=== PATIENT | female | born 1960 | race Caucasian/White ===

== ENCOUNTER → 2016-06-08 | Outpatient (CLI) | payer OTHER ==
[~2016-06-08] MED LIST: ALPR.25T PO; ALPR1TAB7 PO; AMIT10TA6 PO; BACL10TA PO; BIOT10002 PO; BREX1TAB PO; CALC-6 PO; DICL75TA2 PO; FLUO20TA28 PO; FLUO40CA12 PO; HYDR-3812 PO; HYDR1TAB86 PO; LEVO25TA5 PO; LEVOTHYROXINE; MELA1TAB20 PO; MULT1TAB69 PO; OMEG1CAP24 PO; POTA2TAB15 PO; PRAV40TA2 PO; TRAZ-28 PO
--- OUTSIDE RECORDS SUMMARY | 2016-06-08 10:16 | XMS REPORT | Continuity of Care Document ---
Author Author [facility] Organization [facility] Address Unknown Phone Unavailable Allergies Active Description Code Type Severity Reaction Onset Reported/Identified Relationship to Patient Clinical Status Yes No Known Drug Allergies [id number] Drug Allergy Unknown N/ A 04/01/2011 Medications Problems Date Dx Coded Attending Type Code Diagnosis Diagnosed By MISHA PUTNAM MD Ot M48.06 05/02/2015 Ot V76.12 05/13/2015 Ot V76.12 05/15/2015 MISHA PUTNAM MD Ot M12.9 05/15/2015 MISHA PUTNAM MD Ot M51.26 05/15/2015 MISHA PUTNAM MD Ot M51.37 05/26/2015 MISHA PUTNAM MD Ot M12.9 05/26/2015 MISHA PUTNAM MD Ot M51.26 05/26/2015 MISHA PUTNAM MD Ot M51.37 05/27/2015 INDY LR, MISHA Fisher Ot M48.06 06/06/2015 INDY LR, MISHA Fisher Ot M48.06 07/02/2015 MISHA PUTNAM MD Ot M48.06 SPINAL STENOSIS, LUMBAR REGION 07/10/2015 MECCA LR, JOHNATHAN Fisher Ot M54.12 07/22/2015 MECCA LR, JOHNATHAN Fisher Ot M54.12 RADICULOPATHY, CERVICAL REGION 10/08/2015 MECCA LR, JOHNATHAN Fisher Ot M54.12 RADICULOPATHY, CERVICAL REGION 11/26/2015 INDY LR, MISHA Fisher Ot M12.9 ARTHROPATHY, UNSPECIFIED 11/26/2015 INDY LR, MISHA Fisher Ot M51.26 OTHER INTERVERTEBRAL DISC DISPLACEMENT, 11/26/2015 MISHA PUTNAM MD Ot M51.37 OTHER INTERVERTEBRAL DISC DEGENERATION, Procedures Results Encounters ACCT No. Visit Date/Time Discharge Status Pt. Type Provider Facility Loc./Unit Complaint [id number] 06/20/2015 10:25:00 2015 09:30:00 DIS Outpatient MISHA PUTNAM MD [facility] REHAB [id number] 07/09/2015 14:36:00 ACT Outpatient MECCA LR, JOHNATHAN Fisher [facility] RAD [id number] 05/13/2015 08:05:00 ACT Outpatient INDY LR, MISHA Fisher [facility] RAD LOW BACK PAIN RADIATED INTO LEGS EFFECTING BLADDER [id number] 10/02/2010 13:00:00 Document Registration
--- NOTE | 2016-06-08 20:36 | Diagnostic Imaging Report ---
Ultrasound of the neck left side. INDICATION: Left neck lump near the left ear getting larger. FINDINGS: There is a 2.2 x 1.0 x 1.6 cm hypoechoic mass with vascularity. It appears to be arising from the inferior aspect of the left parotid gland. Smaller nodules within the parotid gland up to 0.9 cm also seen with internal vascularity demonstrated. The lesions all have internal vascularity and are solid. IMPRESSION: Multiple circumscribed masses in the left parotid gland up to 2.2 cm in size. 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 Evaluation with ultrasound-guided fine needle aspiration is recommended. Dictated by: Dictated on workstation # [id number]
== END ==
LOC: RAD 10:13
PROVIDERS: ATTEND Family Medicine
DX: K11.8 Other diseases of salivary glands (principal)
CPT/HCPCS: 76536

== ENCOUNTER → 2016-06-15 | Outpatient (CLI) | payer OTHER ==
[~2016-06-15] VITALS: Ht 165.1 cm; Wt 52.2 kg
[~2016-06-15] MED LIST changes: +LIDOCAINE 1% INJ 20 ML (XYLOCAINE) VIAL INJ ONE
[2016-06-15 13:51] VITALS: BP 130/84
[2016-06-15 14:22] VITALS: BP 128/76
--- NOTE | 2016-06-15 16:21 | Diagnostic Imaging Report ---
EXAMINATION: US-guided fine needle biopsy-parotid. INDICATION: Left parotid mass. CONSENT: Informed consent was obtained from the patient. The risks, benefits, potential complications and alternatives were reviewed and all questions answered to the patient's satisfaction. FINDINGS: Hypoechoic left parotid solid mass. PROCEDURE: After sterile preparation and draping, 1% lidocaine was utilized for local anesthesia. A 25-gauge hypodermic needle is introduced into the left parotid mass under live ultrasound guidance. After confirming adequate positioning with saved ultrasound images, multiple passes of fine needle aspiration is performed and repeated 5 times. The patient tolerated the procedure well with no immediate complications. IMPRESSION: Successful US-guided fine needle aspiration biopsy of left parotid mass. Dictated by: Dictated on workstation # [id number]
== END ==
LOC: RAD 13:24
PROVIDERS: ATTEND Family Medicine
DX: R22.1 Localized swelling, mass and lump, neck (principal)
CPT/HCPCS: 76942; 88305

== ENCOUNTER 2016-06-22 12:17 | Outpatient (CLI) | payer OTHER ==
[~2016-06-22] VITALS: Ht 165.1 cm; Wt 58.6 kg
[~2016-06-22 12:17] MED LIST changes: -ALPR1TAB7 PO; -AMIT10TA6 PO; -BACL10TA PO; -BIOT10002 PO; -BREX1TAB PO; -CALC-6 PO; -DICL75TA2 PO; -FLUO20TA28 PO; -FLUO40CA12 PO; -HYDR-3812 PO; -LEVO25TA5 PO; -LIDOCAINE 1% INJ 20 ML (XYLOCAINE) VIAL INJ ONE; -MELA1TAB20 PO; -MULT1TAB69 PO; -OMEG1CAP24 PO; -POTA2TAB15 PO; -PRAV40TA2 PO; -TRAZ-28 PO
[2016-06-22 12:27] VITALS: BP 108/66
[2016-06-22 12:58] LABS: BASOPHILS % (AUTO) 0 % (0-10); EOSINOPHILS % (AUTO) 1 % (0-10); LYMPHOCYTES # (AUTO) 1.7 X 10^3 (1.0-4.0); LYMPHOCYTES % (AUTO) 24 % (12-44); MEAN CORPUSCULAR HEMOGLOBIN 31 PG (25-34); MEAN CORPUSCULAR HGB CONC 35 G/DL (32-36); MEAN CORPUSCULAR VOLUME 88 FL (80-99); MEAN PLATELET VOLUME 8.5 FL (7.4-10.4); MONOCYTES # (AUTO) 0.7 X 10^3 (0.0-1.0); MONOCYTES % (AUTO) 10 % (0-12); NEUTROPHILS # (AUTO) 4.6 X 10^3 (1.8-7.8); NEUTROPHILS % (AUTO) 65 % (42-75); PLATELET COUNT 218 10^3/uL (130-400); RED BLOOD COUNT 3.44 10^6/uL (4.35-5.85); RED CELL DISTRIBUTION WIDTH 13.1 % (10.0-14.5); WHITE BLOOD COUNT 7.2 10^3/uL (4.3-11.0)
[2016-06-22 13:20] LABS: ANION GAP 10 MMOL/L (5-14); BLOOD UREA NITROGEN 9 MG/DL (7-18); BUN/CREATININE RATIO 13; CARBON DIOXIDE 23 MMOL/L (21-32); CHLORIDE 98 MMOL/L (98-107); CREATININE SERUM 0.71 MG/DL (0.60-1.30); GFR ESTIMATED > 60; GLUCOSE 81 MG/DL (70-105); POTASSIUM 4.2 MMOL/L (3.6-5.0); SODIUM 131 MMOL/L (135-145)
[2016-06-22] MEDS ORDERED: FLUO20TA28 PO (13:21)
[2016-06-22] MEDS ORDERED: FLUO40CA12 PO (13:21)
[2016-06-22] MEDS ORDERED: POTA2TAB15 PO (13:21)
[2016-06-22] MEDS ORDERED: CALC-6 PO (13:21)
[2016-06-22] MEDS ORDERED: PRAV40TA2 PO (13:21)
[2016-06-22] MEDS ORDERED: ALPR1TAB7 PO (13:21)
[2016-06-22] MEDS ORDERED: DICL75TA2 PO (13:21)
[2016-06-22] MEDS ORDERED: MELA1TAB20 PO (13:21)
[2016-06-22] MEDS ORDERED: BACL10TA PO (13:21)
[2016-06-22] MEDS ORDERED: LEVO25TA5 PO (13:21)
[2016-06-22] MEDS ORDERED: TRAZ-28 PO (13:21)
[2016-06-22] MEDS ORDERED: OMEG1CAP24 PO (13:21)
[2016-06-22] MEDS ORDERED: BREX1TAB PO (13:21)
[2016-06-22] MEDS ORDERED: AMIT10TA6 PO (13:21)
[2016-06-22] MEDS ORDERED: BIOT10002 PO (13:21)
[2016-06-22] MEDS ORDERED: MULT1TAB69 PO (13:21)
--- NOTE | 2016-06-22 14:24 | Diagnostic Imaging Report ---
INDICATION: Preoperative evaluation. No chest complaints. Patient has left neck mass. Comparison study: Chest from March 2011. FINDINGS: Frontal and lateral views of the chest demonstrate the lungs to be clear. The heart, mediastinum, pulmonary vascularity and visualized bony thorax are normal. IMPRESSION: Negative chest. Dictated by: Dictated on workstation # [id number]
== END 2016-06-22 13:07 | disposition home or self-care (01) ==
LOC: PREOP 12:17
PROVIDERS: ATTEND Otolaryngology Otolaryngology/Facial Plastic Surgery
DX: Z01.818 Encounter for other preprocedural examination (principal); Z01.812 Encounter for preprocedural laboratory examination; Z11.2 Encounter for screening for other bacterial diseases; R22.1 Localized swelling, mass and lump, neck
CPT/HCPCS: 36415; 71020; 80048; 85025; 87081; 93005

== ENCOUNTER 2016-06-24 06:00 | Day surgery (SDC) | payer OTHER ==
[~2016-06-24] VITALS: Ht 165.1 cm; Wt 58.6 kg
[~2016-06-24 06:00] MED LIST changes: +ALPR1TAB7 PO; +AMIT10TA6 PO; +BACL10TA PO; +BIOT10002 PO; +BREX1TAB PO; +CALC-6 PO; +DICL75TA2 PO; +FLUO20TA28 PO; +FLUO40CA12 PO; +LEVO25TA5 PO; +MELA1TAB20 PO; +MULT1TAB69 PO; +OMEG1CAP24 PO; +POTA2TAB15 PO; +PRAV40TA2 PO; +TRAZ-28 PO
[2016-06-24] MEDS: LACTATED RINGERS 1,000 ML IV PRN ×2 (06:20→07:45)
[2016-06-24 06:30] VITALS: BP 122/71
[2016-06-24] MEDS ORDERED: MUPIROCIN 2% OINT 22 GM (BACTROBAN) TUBE ONE (06:40)
[2016-06-24] MEDS ORDERED: LIDOCAINE/EPI 1%-1:100,000 (XYLOCAINE) 20ML ONE (06:40)
--- NOTE | 2016-06-24 06:46 | Progress Note-Pre Operative ---
Pre-Operative Progress Note H&P Reviewed The H&P was reviewed, patient examined and no changes noted. Date H&P Reviewed: Jun 24, 2016 Time H&P Reviewed: 06:30 Pre-Operative Diagnosis: Left Neck Mass, poss parotidectomy BRUCE GALLEGO MD Jun 24, 2016 6:46 am
[2016-06-24] MEDS ORDERED: fentaNYL INJECTION 100 MCG/2 ML AMP ONE ×2 (06:56→09:27)
[2016-06-24] MEDS ORDERED: MIDAZOLAM 2 MG/2 ML (VERSED) VIAL IV ONE (07:00)
[2016-06-24] MEDS ORDERED: MIDAZOLAM 2 MG/2 ML (VERSED) VIAL ONE (07:07)
[2016-06-24] MEDS ORDERED: proPOfol 200 MG/20 ML (DIPRIVAN) VIAL IV ONE ×2 (07:44→09:11)
[2016-06-24] MEDS ORDERED: SEVOFLURANE (ULTANE) 15 ML INHAL SOLN ONE ×6 (07:48→10:09)
[2016-06-24] MEDS ORDERED: LIDOCAINE PF 2% 10 ML (XYLOCAINE) AMP ONE (07:48)
[2016-06-24] MEDS ORDERED: LACTATED RINGERS 1,000 ML IV ONE ×2 (07:48→08:23)
--- NOTE | 2016-06-24 08:16 | Progress Note-Post Operative ---
Post-Operative Progess Note Surgeon (s)/Deputy Sheriff Generalist/Bailiff (s) Surgeon BRUCE GALLEGO MD Deputy Sheriff Generalist/Bailiff: n/a Pre-Operative Diagnosis Left Neck Mass, poss parotidectomy Post-Operative Diagnosis Left Parotid Mass, Left Paarotid Lymph NOde Post-Op Procedure Note Date of Procedure: Jun 24, 2016 Name of Procedure Performed: Excison of Left Parotid Mass, Excision of Left Intraparotid Lymph Node Description of the Procedure: n/a Findings of the Procedure n/a Anesthesia Type get Estimated blood loss (mL): minimal Packing: n/a Specimen(s) collected/removed left parotid mass, Left intrapratoid lymph node to path for frozen BRUCE GALLEGO MD Jun 24, 2016 8:16 am
[2016-06-24] MEDS ORDERED: ONDANSETRON 4 MG/2 ML (SDV) Z0FRAN ONE (08:23)
[2016-06-24] MEDS ORDERED: ROCURONIUM 50 MG/5 ML (ZEMURON) VIAL IV ONE (08:23)
[2016-06-24] MEDS ORDERED: DEXAMETHASONE PF 10 MG/ML (DECADRON) VIAL ONE (08:23)
[2016-06-24] MEDS ORDERED: GLYCOPYRROLATE 0.2 MG/ML (ROBINUL) 2 ML VIAL ONE (08:29)
[2016-06-24] MEDS ORDERED: NEOSTIGMINE (BLOXIVERZ ) 1 MG/1ML 10 ML VIAL ONE (08:29)
[2016-06-24] MEDS ORDERED: HYDROcodone/APAP 5 MG/325 MG (LORTAB) TAB PO PRN (08:30)
[2016-06-24] MEDS ORDERED: ACETAMINOPHEN 325 MG TABLET/CAPLET (TYLENOL) PO PRN (08:30)
--- NOTE | 2016-06-24 09:26 | Progress Note-Standard ---
Standard Progress Note Progress Notes/Assess & Plan Progress/Assessment & Plan [facility] at around 9AM with swelling of incision site and bleeding from site woke from anees finewith no bleeding but started bleeding in RR Airway intact-mild oozing from incision site Discussed findings with patient. Will take back to the OR for exploration of hte wound to find source of bleeding Will see what we find and t hen make a decision on whether to palce a drain and stay or still can go home Will proceed to the OR as soon as a room is available/ Need for exploration of wound also discussed with the daughter as well Final Diagnosis Post-op Bleeding-Left Parotid Incision site BRUCE GALLEGO MD Jun 24, 2016 9:26 am
--- NOTE | 2016-06-24 10:13 | Progress Note-Post Operative ---
Post-Operative Progess Note Surgeon (s)/Cloth Layer (s) Surgeon BRUCE GALLEGO MD Cloth Layer: n/a Pre-Operative Diagnosis Post-op Hematoma Post-Operative Diagnosis same Post-Op Procedure Note Date of Procedure: Jun 24, 2016 Name of Procedure Performed: Exploration of Left Neck wound for bleeding Description of the Procedure: n/a Findings of the Procedure n/a Anesthesia Type gen lma Estimated blood loss (mL): minimal Packing: n/a Specimen(s) collected/removed none BRUCE GALLEGO MD Jun 24, 2016 10:13 am
[2016-06-24] MEDS ORDERED: HYDR-3812 PO (10:22)
--- NOTE | 2016-06-24 10:38 | Progress Note-Standard ---
Standard Progress Note Progress Notes/Assess & Plan Progress/Assessment & Plan [facility] at around 9AM with swelling of incision site and bleeding from site woke from anees finewith no bleeding but started bleeding in RR Airway intact-mild oozing from incision site Discussed findings with patient. Will take back to the OR for exploration of hte wound to find source of bleeding Will see what we find and t hen make a decision on whether to palce a drain and stay or still can go home Will proceed to the OR as soon as a room is available/ Need for exploration of wound also discussed with the daughter as well Howard Findings at time of surgery were minimal-no acutely bleeding vessel seen-mild oozing which was cauterized. Incison closed and a neck dressing placed As long as she does ok will go ahead and send home-will have her remove neck dressing tomorrow RTC-1 week for suture removal Final Diagnosis Post-op Hematoma-Left Parotid Surgery BRUCE GALLEGO MD Jun 24, 2016 10:38 am
[2016-06-24 11:15] VITALS: BP 128/73
[2016-06-24] MEDS ORDERED: HYDROcodone/APAP 5 MG/325 MG (LORTAB) TAB ONE (11:32)
[2016-06-24 11:45] VITALS: BP 139/80
--- OUTSIDE RECORDS SUMMARY | 2016-07-18 05:39 | XMS REPORT ---
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 767309125 Problem Generalized anxiety disorder F41.1 Active 53763765 Problem Major depressive disorder, single episode, moderate F32.1 Active 010733945 Assessment Major depressive disorder, single episode, moderate F32.1 Nov, Active [id number] ALLERGIES Unknown Allergies SOCIAL HISTORY No smoking Hx information available PLAN OF CARE VITAL SIGNS Height 64.0 in 2015-12-10 Weight 121.3 lbs 2015-12-10 Heart Rate 70 bpm 2015-12-10 Respiratory Rate 18 2015-12-10 BMI 20.82 kg/m2 2015-12-10 Blood pressure systolic 128 mmHg 2015-12-10 Blood pressure diastolic 70 mmHg 2015-12-10 MEDICATIONS Medication Instructions Dosage Frequency Start Date End Date Duration Status Remeron 15 MG Orally Once a day 1/2 tablet before bedtime in the evening 24h Active Fish Oil 1360 MG Orally Once a day 1 capsule 24h Active Pravastatin Sodium 40 MG Orally Once a day 1 tablet 24h Active Prozac 20 mg Orally Once a day 1 capsule in the morning 24h Nov, Active Daily Vitamin - Orally Once a day 1 tablet 24h Active Biotin 5000 MCG Orally Once a day 1 capsule 24h Active Potassium 95 MG Active Zinc 50 MG Orally Once a day 1 tablet 24h Active Baclofen 10 MG Orally Three times a day 1 tablet with food or milk 8h Active Diclofenac Sodium 75 MG Orally twice a day 1 tablet 12h Active Hydrocodone-Acetaminophen 10-325 MG Orally every 6 hrs 1 tablet as needed 6h Active Levothyroxine Sodium 25 MCG Orally Once a day 1 tablet 24h Active Alprazolam 2 MG Orally 6 times a day 1 tablet 4h Active Calcium 600 MG Orally Twice a day 1 tablet with meals 12h Active Prozac 40 mg Orally Once a day 1 capsule in the morning 24h Active Melatonin 5 MG Orally Once a day 1 tablet at bedtime as needed with food 24h Active RESULTS No Results PROCEDURES Procedure Date Ordered Related Diagnosis Body Site Office Visit, Est Pt., Level 2 Dec 10, 2015 IMMUNIZATIONS No Known Immunizations
--- OUTSIDE RECORDS SUMMARY | 2016-07-18 05:39 | XMS REPORT | Continuity of Care Document ---
Author Author [facility] Organization [facility] Address Unknown Phone Unavailable Allergies Active Description Code Type Severity Reaction Onset Reported/Identified Relationship to Patient Clinical Status Yes No Known Drug Allergies [id number] Drug Allergy Unknown N/ A 04/01/2011 Medications Problems Date Dx Coded Attending Type Code Diagnosis Diagnosed By INDY LR, MISHA Fisher Ot M48.06 05/02/2015 Ot V76.12 05/13/2015 Ot V76.12 05/15/2015 MISHA PUTNAM MD Ot M12.9 05/15/2015 INDY LR, MISHA Fisher Ot M51.26 05/15/2015 MISHA PUTNAM MD Ot M51.37 05/26/2015 MISHA PUTNAM MD Ot M12.9 05/26/2015 INDY LR, MISHA Fisher Ot M51.26 05/26/2015 INDY LR, MISHA Fisher Ot M51.37 05/27/2015 INDY LR, MISHA Fisher Ot M48.06 06/06/2015 INDY LR, MISHA Fisher Ot M48.06 07/02/2015 INDY LR, MISHA iFsher Ot M48.06 SPINAL STENOSIS, LUMBAR REGION 07/10/2015 MECCA LR, JOHNATHAN Fisher Ot M54.12 07/22/2015 MECCA LR, JOHNATHAN Fisher Ot M54.12 RADICULOPATHY, CERVICAL REGION 10/08/2015 MECCA LR, JOHNATHAN J Ot M54.12 RADICULOPATHY, CERVICAL REGION 11/26/2015 INDY LR, MISHA Fisher Ot M12.9 ARTHROPATHY, UNSPECIFIED 11/26/2015 INDY LR, MISHA Fisher Ot M51.26 OTHER INTERVERTEBRAL DISC DISPLACEMENT, 11/26/2015 INDY LR, MISHA Fisher Ot M51.37 OTHER INTERVERTEBRAL DISC DEGENERATION, 06/08/2016 MISHA PUTNAM MD Ot M12.9 ARTHROPATHY, UNSPECIFIED 06/08/2016 MISHA PUTNAM MD Ot M51.26 OTHER INTERVERTEBRAL DISC DISPLACEMENT, 06/08/2016 MISHA PUTNAM MD Ot M51.37 OTHER INTERVERTEBRAL DISC DEGENERATION, 06/08/2016 MECCA LR, JOHNATHAN Fisher Ot M54.12 RADICULOPATHY, CERVICAL REGION 06/08/2016 INDY LR, MISHA Fisher Ot M12.9 ARTHROPATHY, UNSPECIFIED 06/08/2016 INDY LR, MISHA Fisher Ot M51.26 OTHER INTERVERTEBRAL DISC DISPLACEMENT, 06/08/2016 MISHA PUTNAM MD Ot M51.37 OTHER INTERVERTEBRAL DISC DEGENERATION, 06/08/2016 MECCA LR, JOHNATHAN Fisher Ot M54.12 RADICULOPATHY, CERVICAL REGION 06/09/2016 ORENDER DO, ROBERT S Ot K11.8 OTHER DISEASES OF SALIVARY [place]ANDS 06/09/2016 ORENDER DO, ROBERT S Ot K11.8 OTHER DISEASES OF [place] 06/09/2016 ORENDER DO, ROBERT S Ot K11.8 OTHER DISEASES OF SAL[place]ARY [place] 06/18/2016 ORENDER DO, ROBERT S Ot K11.8 OTHER DISEASES OF SALIVARY [place] 06/22/2016 BRUCE GALLEGO MD P Ot R22.1 LOCALIZED SWELLING, MASS AND LUMP, NECK 06/22/2016 BRUCE GALLEGO MD P Ot Z01.812 ENCOUNTER FOR PREPROCEDURAL LABORATORY E 06/22/2016 BRUCE GALLEGO MD P Ot Z01.818 ENCOUNTER FOR OTHER PREPROCEDURAL EXAMIN 06/22/2016 BRUCE GALLEGO MD P Ot Z11.2 ENCOUNTER FOR SCREENING FOR OTHER BACTER 06/23/2016 BRUCE GALLEGO MD Ot R22.1 LOCALIZED SWELLING, MASS AND LUMP, NECK 06/23/2016 BRUCE GALLEGO MD Ot Z01.812 ENCOUNTER FOR PREPROCEDURAL LABORATORY E 06/23/2016 BRUCE GALLEGO MD P Ot Z01.818 ENCOUNTER FOR OTHER PREPROCEDURAL EXAMIN 06/23/2016 BRUCE GALLEGO MD P Ot Z11.2 ENCOUNTER FOR SCREENING FOR OTHER BACTER 06/24/2016 BRUCE GALLEGO MD Ot R22.1 LOCALIZED SWELLING, MASS AND LUMP, NECK 06/24/2016 BRUCE GALLEGO MD Ot Z01.812 ENCOUNTER FOR PREPROCEDURAL LABORATORY E 06/24/2016 BRUCE GALLEGO MD Ot Z01.818 ENCOUNTER FOR OTHER PREPROCEDURAL EXAMIN 06/24/2016 BRUCE GALLEGO MD Ot Z11.2 ENCOUNTER FOR SCREENING FOR OTHER BACTER 06/24/2016 MISHA PUTNAM MD Ot M12.9 ARTHROPATHY, UNSPECIFIED 06/24/2016 INDY LR, MISHA Fisher Ot M51.26 OTHER INTERVERTEBRAL DISC DISPLACEMENT, 06/24/2016 INDY LR, MISHA Fisher Ot M51.37 OTHER INTERVERTEBRAL DISC DEGENERATION, 06/24/2016 MECCA LR, JOHNATHAN Fisher Ot M54.12 RADICULOPATHY, CERVICAL REGION 06/24/2016 ROBERT DUKES DO S Ot K11.8 OTHER DISEASES OF SALIVARY [place]AND[place] 06/24/2016 ROBERT DUKES DO S Ot R22.1 LOCALIZED SWELLING, MASS AND LUMP, NECK 06/24/2016 JULIÁN LR, BRUCE Danielson Ot K11.9 DISEASE OF SALIVARY [place], UNSPECIFIED 06/28/2016 ROBERT DUKES DO S Ot R22.1 LOCALIZED SWELLING, MASS AND LUMP, NECK Procedures Results Test Result Range Complete blood count (CBC) with automated white blood cell (WBC) differential - 06/22/16 12:45 Blood leukocytes automated count (number/volume) 7.2 10*3/ uL 4.3-11.0 Blood erythrocytes automated count (number/volume) 3.44 10*6 /uL 4.35-5.85 Venous blood hemoglobin measurement (mass/volume) 10.6 g/dL 11.5-16.0 Blood hematocrit (volume fraction) 30 % 35-52 Automated erythrocyte mean corpuscular volume 88 [foz_us] 80-99 Automated erythrocyte mean corpuscular hemoglobin (mass per erythrocyte) 31 pg 25-34 Automated erythrocyte mean corpuscular hemoglobin concentration measurement ( mass/volume) 35 g/dL 32-36 Automated erythrocyte distribution width ratio 13.1 % 10.0-14.5 Automated blood platelet count (count/volume) 218 10*3/uL 130-400 Automated blood platelet mean volume measurement 8.5 [foz_us ] 7.4-10.4 Automated blood neutrophils/100 leukocytes 65 % 42-75 Automated blood lymphocytes/100 leukocytes 24 % 12-44 Blood monocytes/100 leukocytes 10 % 0-12 Automated blood eosinophils/100 leukocytes 1 % 0-10 Automated blood basophils/100 leukocytes 0 % 0-10 Blood neutrophils automated count (number/volume) 4.6 10*3 1.8-7.8 Blood lymphocytes automated count (number/volume) 1.7 10*3 1.0-4.0 Blood monocytes automated count (number/volume) 0.7 10*3 0.0-1.0 Automated eosinophil count 0.0 10*3/uL 0.0-0.3 Automated blood basophil count (count/volume) 0.0 10*3/uL 0.0-0.1 Whole blood basic metabolic panel - 06/22/16 12:45 Serum or plasma sodium measurement (moles/volume) 131 mmol/ L 135-145 Serum or plasma potassium measurement (moles/volume) 4.2 mmol/L 3.6-5.0 Serum or plasma chloride measurement (moles/volume) 98 mmol/ L 98-107 Carbon dioxide 23 mmol/L 21-32 Serum or plasma anion gap determination (moles/volume) 10 mmol/L 5-14 Serum or plasma urea nitrogen measurement (mass/volume) 9 mg /dL 7-18 Serum or plasma creatinine measurement (mass/volume) 0.71 mg /dL 0.60-1.30 Serum or plasma urea nitrogen/creatinine mass ratio 13 NRG Serum or plasma creatinine measurement with calculation of estimated glomerular filtration rate > NRG Serum or plasma glucose measurement (mass/volume) 81 mg/dL 70-105 Serum or plasma calcium measurement (mass/volume) 9.0 mg/dL 8.5-10.1 Methicillin resistant Staphylococcus aureus (MRSA) screening culture - 12:45 Methicillin resistant Staphylococcus aureus (MRSA) screening culture NEG NRG Encounters ACCT No. Visit Date/Time Discharge Status Pt. Type Provider Facility Loc./Unit Complaint [id number] 06/24/2016 06:00:00 2016 11:50:00 DIS Outpatient BRUCE GALLEGO MD [facility] SDC LEFT NECK MASS [id number] 06/22/2016 12:17:00 2016 13:07:00 DIS Outpatient BRUCE GALLEGO MD [facility] PREOP MASS LEFT NECK [id number] 06/20/2015 10:25:00 2015 09:30:00 DIS Outpatient MISHA PUTNAM MD [facility] REHAB LBP ; RADICULOPATHY [id number] 06/15/2016 13:24:00 ACT Outpatient ROBERT DUKES DO [facility] RAD L NECK MASS [id number] 06/08/2016 10:13:00 ACT Outpatient ROBERT DUKES DO [facility] RAD R59.0 [id number] 07/09/2015 14:36:00 ACT Outpatient MECCA LR, JOHNATHAN Fisher [facility] RAD CERVICAL RADICULOPATHY [id number] 05/13/2015 08:05:00 ACT Outpatient INDY LR, MISHA Fisher [facility] RAD LOW BACK PAIN RADIATED INTO LEGS EFFECTING BLADDER [id number] 10/02/2010 13:00:00 Document Registration
--- OUTSIDE RECORDS SUMMARY | 2016-07-18 05:40 | XMS REPORT ---
Author Author LUNA GREGG Organization [employer] Address Unknown Phone Unavailable Care Team Providers Care Computer Systems Integrator Name Role Phone LUNA GREGG Unavailable Allergies No Known Allergies Problems Problem Type Condition Code Onset Dates Condition Status Problem Major depressive disorder, single episode, moderate F32.1 Active Assessment Generalized anxiety disorder F41.1 Active Problem Generalized anxiety disorder F41.1 Active Assessment Major depressive disorder, single episode, moderate F32.1 Active Medications No Known Medications Procedures Procedure Coding System Code Date Psych diagnostic evaluation, new patient CPT-4 95223 October 20, 2015 Results No Known Results Summary Purpose [employer] Submission
--- OUTSIDE RECORDS SUMMARY | 2016-07-18 05:40 | XMS REPORT ---
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 Assessment Major depressive disorder, single episode, moderate F32.1 Active Assessment Generalized anxiety disorder F41.1 Active Medications Medication Code System Code Instructions Start Date End Date Status Dosage Prozac [facility] [address]-27 40 mg Orally Once a day 1 capsule in the morning Prozac [facility] [address]-40 20 mg Orally Once a day 1 capsule in the morning Remeron [facility] [address]-09 15 MG Orally Once a day 1/2 tablet before bedtime in the evening Rexulti [facility] [address]-63 0.5 MG Orally Once a day Feb 04, 2016 1 tablet Procedures Procedure Coding System Code Date Office Visit, Est Pt., Level 2 CPT-4 56545 Feb 04, 2016 Results No Known Results Summary Purpose [employer] Submission
== END 2016-06-24 11:50 | disposition home or self-care (01) ==
LOC: DELPENDDIS → SDC 06:00
PROVIDERS: ATTEND Otolaryngology Otolaryngology/Facial Plastic Surgery
DX: D11.0 Benign neoplasm of parotid gland (principal)
CPT/HCPCS: 88305; 88307; 88331

== ENCOUNTER → 2017-04-11 | Outpatient (CLI) | payer BC, OTHER ==
[~2017-04-11] MED LIST changes: +ACHD5005 PO; -BIOT10002 PO; +BIOT10006 PO
--- NOTE | 2017-04-11 12:31 | Diagnostic Imaging Report ---
PROCEDURE: US Thyroid. TECHNIQUE: Multiple real-time grayscale images were obtained of the thyroid in various projections. INDICATION: Abnormal thyroid lab work. COMPARISON: There are no previous thyroid ultrasound examinations available for comparison. FINDINGS: The thyroid gland is prominent but not enlarged. The right lobe measures 5.1 x 1.8 x 1.6 cm while the left lobe is estimated to be 5 x 1.2 x 1.8 cm (normal gland size 4-5 x 2 x 2 cm or less). In the superior pole of the right lobe, there is a 1 x 1 x 0.7 cm fairly well-circumscribed nodule of mixed echogenicity. There is a similar-appearing 1.1 x 0.7 x 0.8 cm nodule in the inferior pole of the right lobe of the thyroid. In the left lobe of the thyroid in the inferior pole, there is a 0.9 x 1.2 x 0.8 cm nodule. These nodules were not particularly well visualized on the previous MRI cervical spine exam of 07/09/2015. If previous exams are available, they would be helpful for comparison. If there are no prior studies, then a nuclear medicine thyroid scan would be recommended for further study. IMPRESSION: The thyroid gland is prominent and there are hypoechoic nodules in each lobe. These findings may well be secondary to multinodular goiter. It would be less likely that these nodules are malignant in nature. Recommendations, as above. Dictated by: Dictated on workstation # [id number]
== END ==
LOC: RAD 10:55
PROVIDERS: ATTEND Family Medicine
DX: E04.2 Nontoxic multinodular goiter (principal); E03.9 Hypothyroidism, unspecified
CPT/HCPCS: 76536

== ENCOUNTER → 2017-04-14 | Outpatient (CLI) | payer BC ==
--- NOTE | 2017-04-14 18:26 | Diagnostic Imaging Report ---
Digital mammogram bilateral screening. This study was compared to the prior exam of 10/02/2010. At this time, there are no current complaints. The current study was also evaluated with a Computer Aided Detection (CAD) system. FINDINGS: The fibroglandular tissue in both breasts is heterogeneously dense. This does limit the sensitivity of this exam. On the MLO view of the left breast, the left nipple does seem to be slightly retracted. This appearance is not as conspicuous on the CC view and I suspect it may be related to positioning as opposed to a retroareolar mass retracting the nipple. Even so, I would recommend that a true lateral view of the left breast be obtained for further study. Also, in the interval since the prior exam, a prominent 1.6 cm lymph node has developed in the left axilla. This node should be further evaluated by ultrasound as well. The right breast is unchanged. IMPRESSION: An additional mammographic view of the left breast and ultrasound of the newly developed lymph node in the left axilla would be recommended for further study. ACR BI-RADS Category 0: Incomplete. (Needs additional imaging evaluation). Result letter will be mailed to the patient. Note: At least 10% of breast cancer is not imaged by mammography. Dictated by: Dictated on workstation # [id number]
== END ==
LOC: RAD 13:21
PROVIDERS: ATTEND Family Medicine
DX: Z12.31 Encounter for screening mammogram for malignant neoplasm of breast (principal); R59.0 Localized enlarged lymph nodes
CPT/HCPCS: 77067

== ENCOUNTER → 2017-04-19 | Outpatient (CLI) | payer BC ==
--- NOTE | 2017-04-20 11:27 | Diagnostic Imaging Report ---
TECHNIQUE: Patient was administered 200 ?Ci of I-123 and 4-hour and 24-hour thyroid uptake as well as thyroid scan was performed. FINDINGS: 4 hour uptake is 8% with normal values 8-16%. 24-hour thyroid uptake is 21% with normal values 10-30%. Thyroid scan demonstrates homogeneous uptake of activity throughout both lobes. No hot or cold nodules are detected. IMPRESSION: Unremarkable thyroid uptake and thyroid scan. Dictated by: Dictated on workstation # [id number]
== END ==
LOC: CARD 10:35
PROVIDERS: ATTEND Family Medicine
DX: E04.1 Nontoxic single thyroid nodule (principal)
CPT/HCPCS: 78014

== ENCOUNTER → 2017-04-21 | Outpatient (CLI) | payer BC ==
--- NOTE | 2017-04-21 18:51 | Diagnostic Imaging Report ---
INDICATION: Questionable nipple retraction on the left. Patient presents for additional views. Correlation is made with recent screening study from 04/14/2017. The current study was also evaluated with a Computer Aided Detection (CAD) system. FINDINGS: Patient returned and a 90-degree lateral 3-D mammogram was performed. Moderate density persists. No retroareolar mass is seen. There are benign calcifications on the left. Prominent lymph node was noted on the screening study and further evaluation of this area with ultrasound will be performed. IMPRESSION: Additional view fails to demonstrate a discrete mass in the retroareolar region. Further evaluation of the left retroareolar region and left axilla with ultrasound is recommended and will be performed today. ACR BI-RADS Category 0: Incomplete. (Needs additional imaging evaluation). Result letter will be mailed to the patient. Note: At least 10% of breast cancer is not imaged by mammography. Dictated by: Dictated on workstation # [id number]
--- NOTE | 2017-04-21 18:52 | Diagnostic Imaging Report ---
INDICATION: Abnormal left mammogram. Study is performed for further evaluation. Correlation is made with recent screening mammogram from 04/14/2017 and diagnostic mammogram from 04/21/2017. FINDINGS: Interrogation of the retroareolar region of the left breast was performed. No solid or cystic mass is detected. In addition, the left axilla was evaluated. There are three lymph nodes in the left axilla, largest 3.1 x 1.2 x 0.9 cm. All lymph nodes demonstrate a fatty hilum and thin cortex. No other abnormality is seen. IMPRESSION: No suspicious abnormality is identified. Patient may return to routine annual screening mammography. ACR BI-RADS Category 2: Benign findings. Dictated by: Dictated on workstation # [id number]
== END ==
LOC: RAD 08:41
PROVIDERS: ATTEND Family Medicine
DX: R92.8 Other abnormal and inconclusive findings on diagnostic imaging of breast (principal)
CPT/HCPCS: 76642

== ENCOUNTER → 2018-06-05 | Outpatient (CLI) | payer BC ==
[~2018-06-05] MED LIST changes: +TRAZ-189 PO; -TRAZ-28 PO
--- NOTE | 2018-06-06 21:59 | Diagnostic Imaging Report ---
INDICATION: Routine screening. Comparison is made with prior mammogram from 04/14/2017. 2-D and 3-D bilateral screening mammography was performed with Computer-Aided Detection (CAD) system. FINDINGS: Both breasts are heterogeneously dense, limiting the sensitivity of mammography. The parenchymal pattern appears stable. There are benign calcifications in both breasts. No mass or malignant-appearing microcalcifications are seen. The axillae are unremarkable. IMPRESSION: No mammographic features suspicious for malignancy are identified. ACR BI-RADS Category 2: Benign findings. Result letter will be mailed to the patient. Note: At least 10% of breast cancer is not imaged by mammography. Dictated on workstation # [id number]
== END ==
LOC: RAD 15:32
PROVIDERS: ATTEND Family Medicine
DX: Z12.31 Encounter for screening mammogram for malignant neoplasm of breast (principal)
CPT/HCPCS: 77067

== ENCOUNTER → 2020-05-05 | Outpatient (CLI) | payer BC ==
[~2020-05-05] MED LIST changes: -CALC-6 PO; +CALC1TAB84 PO; +MULT-567 PO; -MULT1TAB69 PO; -TRAZ-189 PO; +TRZ50T PO
--- NOTE | 2020-05-06 10:00 | Diagnostic Imaging Report ---
INDICATION: Routine screening. Comparison is made with prior mammogram from 06/05/2018 and 04/14/2017. 2-D and 3-D bilateral screening mammography was performed with CAD. Both breasts are heterogeneously dense, limiting the sensitivity of mammography. There are benign calcifications in both breasts. No mass or malignant appearing microcalcifications are seen. Axillae are unremarkable. IMPRESSION: BI-RADS Category 2 No mammographic features suspicious for malignancy are identified. ACR BI-RADS Category 2: Benign findings. Result letter will be mailed to the patient. Note: At least 10% of breast cancer is not imaged by mammography. Dictated by: Dictated on workstation # [id number]
== END ==
LOC: RAD 15:43
PROVIDERS: ATTEND Nurse Practitioner Family
DX: Z12.31 Encounter for screening mammogram for malignant neoplasm of breast (principal)
CPT/HCPCS: 77063; 77067

== ENCOUNTER 2021-05-27 16:20 | Observation (INO) | payer OTHER ==
[~2021-05-27] VITALS: Ht 157.5 cm; Wt 54.4 kg
[~2021-05-27 16:20] MED LIST changes: -AMIT50TA3 PO; -BACL20TA PO; -BIOT25007 PO; -CALC600T91 PO; -CATHETER FLUSH 10 ML SYR IV PRN; -CHOL200074 PO; -CIPR500T5 PO; -CLON0.5T4 PO; -CYAN-41 PO; -DOCU-143 PO; -GBPN600T PO; -HOLD METFORMIN - RECEIVED CONTRAST 20 ML VIAL IV SCH; -HYDR-3820 PO; -IOHEXOL 350 MG/ML 100 ML (OMNIPAQUE 350) VIAL IV ONE; -LEVO5TAB28 PO; -MELA3TAB39 PO; -METR-145 PO; -NS 100 ML (IVPB) BAG IV ONE; -QUET50TA79 PO; -RT-ALBUINH IH; -VORT20TA PO; -ZINC50TA58 PO
[2021-05-27 16:40] VITALS: BP 145/73
[2021-05-27] MEDS ORDERED: QUET50TA79 PO (16:41)
[2021-05-27] MEDS ORDERED: CLON0.5T4 PO (16:41)
[2021-05-27] MEDS ORDERED: ONDANSETRON 4 MG/2 ML (SDV) Z0FRAN IV PRN (17:15)
[2021-05-27] MEDS ORDERED: PATIENT MAY USE OWN MEDS, ALL PO SCH (17:15)
[2021-05-27] MEDS ORDERED: METHYLNALTREXONE 12 MG/0.6 ML (RELISTOR) VIAL SQ NR (17:15)
[2021-05-27] MEDS: NS IV 1000 ML 1,000 ML IV SCH (17:28)
[2021-05-27] MEDS ORDERED: PANTOPRAZOLE 40 MG (PROTONIX) VIAL IV NR (17:30)
[2021-05-27] MEDS ORDERED: clonazePAM 0.5 MG (KlonoPIN) TAB PO PRN (17:30)
[2021-05-27 19:44] VITALS: BP 143/75
[2021-05-27] MEDS: GABAPENTIN 400 MG (NEURONTIN) CAP PO SCH (20:03)
[2021-05-27 23:30] VITALS: BP 142/69
[2021-05-28] MEDS: NS IV 1000 ML 1,000 ML IV SCH ×2 (01:38→09:13)
[2021-05-28 04:00] VITALS: BP 139/76
[2021-05-28 06:13] LABS: CREATININE SERUM 0.58 MG/DL (0.60-1.30)
[2021-05-28 07:58] VITALS: BP 150/80
[2021-05-28] MEDS ORDERED: SENNA W/DOCUSATE (SENOKOT S) TABLET PO ONE (09:00)
[2021-05-28] MEDS ORDERED: NICOTINE 14 MG (NICODERM) PATCH TD SCH (09:00)
[2021-05-28] MEDS ORDERED: PANTOPRAZOLE 40 MG (PROTONIX) VIAL IV SCH (09:00)
[2021-05-28] MEDS ORDERED: MILK OF MAGNESIA 400 MG/5 ML 30 ML UDC PO ONE (09:00)
[2021-05-28] MEDS ORDERED: SENNA W/DOCUSATE (SENOKOT S) TABLET ONE (09:07)
[2021-05-28] MEDS ORDERED: MILK OF MAGNESIA 400 MG/5 ML 30 ML UDC ONE (09:08)
[2021-05-28] MEDS: GABAPENTIN 400 MG (NEURONTIN) CAP PO SCH (09:14)
[2021-05-28] MEDS ORDERED: ZINC50TA58 PO (09:36)
[2021-05-28] MEDS ORDERED: LEVO5TAB28 PO (09:36)
[2021-05-28] MEDS ORDERED: BIOT25007 PO (09:36)
[2021-05-28] MEDS ORDERED: VORT20TA PO (09:36)
[2021-05-28] MEDS ORDERED: BACL20TA PO (09:36)
[2021-05-28] MEDS ORDERED: METR-145 PO (09:36)
[2021-05-28] MEDS ORDERED: CALC600T91 PO (09:36)
[2021-05-28] MEDS ORDERED: CHOL200074 PO (09:36)
[2021-05-28] MEDS ORDERED: RT-ALBUINH IH (09:36)
[2021-05-28] MEDS ORDERED: CIPR500T5 PO (09:36)
[2021-05-28] MEDS ORDERED: MELA3TAB39 PO (09:36)
[2021-05-28] MEDS ORDERED: AMIT50TA3 PO (09:36)
[2021-05-28] MEDS ORDERED: HYDR-3820 PO (09:37)
[2021-05-28] MEDS ORDERED: GBPN600T PO (09:37)
[2021-05-28] MEDS ORDERED: CYAN-41 PO (09:37)
[2021-05-28 11:40] VITALS: BP 116/77
[2021-05-28] MEDS ORDERED: DOCU-143 PO (11:50)
--- NOTE | 2021-05-28 18:27 | Short Stay Summary ---
History of Present Illness History of Present Illness Reason for visit/HPI This is a 60 year old female who was sent to the hospital for lab and a CT scan of the abdomen and pelvis due to intactable vomiting with worsening abdominal pain and weakness. Her laboratory showed a low sodium of 125 with a chloride of 88. There was concern about possible diverticulitis or ileus due to her severe pain in her LLQ. However, her CT scan of the abdomen and pelvis showed moderate stool with moderate gas. She was directly admitted due to her low sodium for IVFs and further treatment. Date of Admission May 27, 2021 at 16:20 Date of Discharge May 28, 2021 at 12:20 Time Seen by Provider: 08:35 Attending Physician Robert Cline DO Admitting Physician Robert Cline DO Consult Allergies and Home Medications Allergies Coded Allergies: No Known Drug Allergies (Unverified , 04/01/11) Patient Home Medication List Home Medication List Reviewed: Yes Albuterol Sulfate (Proair Hfa) 1 Puff Puff, 2 PUFF IH Q4H PRN for SHORTNESS OF BREATH, (Reported) Entered as Reported by: TAY ARIAS on 05/28/21935 Last Action: Reviewed Biotin (Biotin) 2,500 Mcg Capsule, 2,500 MCG PO DAILY, (Reported) Entered as Reported by: TAY ARIAS on 05/28/21935 Last Action: Reviewed Calcium Carbonate (Calcium) 600 Mg Tablet, 600 MG PO DAILY, (Reported) Entered as Reported by: TAY ARIAS on 05/28/21935 Last Action: Reviewed Cholecalciferol (Vitamin D3) (Vitamin D3) 50 Mcg Capsule, 50 MCG PO DAILY, (Reported) Entered as Reported by: TAY ARIAS on 05/28/21935 Last Action: Reviewed Clonazepam (Clonazepam) 0.5 Mg Tablet, 0.25 MG PO TID, (Reported) Entered as Reported by: ALFONZO ISIDRO on 05/27/21 164 Last Action: Reviewed Cyanocobalamin (Vitamin B-12) (Vitamin B-12) 1,000 Mcg Tablet, 1,000 MCG PO DAILY, (Reported) Entered as Reported by: TAY ARIAS on 05/28/21936 Last Action: Reviewed Docusate Sodium (Colace) 100 Mg Capsule, 100 MG PO BID Prescribed by: ROBERT CLINE on 05/28/21 1150 Gabapentin (Gabapentin) 600 Mg Tablet, 600 MG PO TID, (Reported) Entered as Reported by: TAY ARIAS on 05/28/21936 Last Action: Reviewed Hydrocodone/Acetaminophen (Hydrocodone-Acetamin 10-325 mg) 1 Each Tablet, 1 EACH PO QID PRN for PAIN-MODERATE (5-7), (Reported) Entered as Reported by: TAY ARIAS on 05/28/21936 Last Action: Reviewed Melatonin (Melatonin) 3 Mg Tablet, 3 MG PO HS, (Reported) Entered as Reported by: TAY ARIAS on 05/28/21935 Last Action: Reviewed Multivitamin (Multivitamins) 1 Each Tablet, 1 EACH PO DAILY, (Reported) Entered as Reported by: BHUPENDRA PARKS on 06/22/161320 Last Action: Reviewed Pravastatin Sodium (Pravastatin Sodium) 40 Mg Tablet, 40 MG PO HS, (Reported) Entered as Reported by: BHUPENDRA PARKS on 06/22/161320 Last Action: Reviewed Quetiapine Fumarate (Quetiapine Fumarate ER) 50 Mg Tab.er.24h, 100 MG PO HS, (Reported) Entered as Reported by: ALFONZO ISIDRO on 05/27/21 164 Last Action: Reviewed Vortioxetine Hydrobromide (Trintellix) 20 Mg Tablet, 20 MG PO DAILY, (Reported) Entered as Reported by: TAY ARIAS on 05/28/21935 Last Action: Reviewed Discontinued Medications Amitriptyline HCl (Amitriptyline HCl) 10 Mg Tablet, 10 MG PO DAILY, (Reported) Discontinued Reason: Duplicate Order Entered as Reported by: BHUPENDRA PARKS on 06/22/161320 Last Action: Discontinued Amitriptyline HCl (Amitriptyline HCl) 50 Mg Tablet, 100 MG PO HS, (Reported) Entered as Reported by: TAY ARIAS on 05/28/21935 Last Action: Reviewed Baclofen (Baclofen) 10 Mg Tablet, 10 MG PO TID, (Reported) Discontinued Reason: Duplicate Order Entered as Reported by: BHUPENDRA PARKS on 06/22/161320 Last Action: Discontinued Baclofen (Baclofen) 20 Mg Tablet, 20 MG PO TID, (Reported) Entered as Reported by: TAY ARIAS on 05/28/21935 Last Action: Reviewed Biotin (Biotin) 10,000 Mcg Tab.rapdis, 10,000 MCG PO DAILY, (Reported) Discontinued Reason: Prescription changed Entered as Reported by: BHUPENDRA PARKS on 06/22/161320 Last Action: Last Taken Edited Calcium Carbonate/Vitamin D3 (Calcium 600 + Vit D 200 Tablet) 1 Each Tablet, 1 EACH PO DAILY, (Reported) Discontinued Reason: Prescription changed Entered as Reported by: BHUPENDRA PARKS on 06/22/161320 Last Action: Last Taken Edited Ciprofloxacin HCl (Ciprofloxacin HCl) 500 Mg Tablet, 500 MG PO BID, (Reported) Entered as Reported by: TAY ARIAS on 05/28/21935 Last Action: Reviewed Hydrocodone Bit/Acetaminophen (Hydrocodon-Acetaminophn 10-500) 1 Each Tablet, 1 TAB PO QID, (Reported) Discontinued Reason: No Longer Taking Entered as Reported by: DANTE PRICE on 04/01/11 0201 Last Action: Discontinued Hydrocodone Bit/Acetaminophen (Lortab 5 Mg Tablet) 1 Each Tablet, 1-2 EACH PO Q4H PRN for PAIN Discontinued Reason: No Longer Taking Prescribed by: HALIMA BUSTAMANTE on 06/24/16 1022 Last Action: Discontinued Levocetirizine Dihydrochloride (Xyzal) 5 Mg Tablet, 5 MG PO HS, (Reported) Entered as Reported by: TAY ARIAS on 05/28/21935 Last Action: Reviewed Melatonin/Pyridoxine HCl (B6) (Melatonin 10 mg Tablet) 1 Each Tab.mphase, 10 MG PO HS, (Reported) Discontinued Reason: Prescription changed Entered as Reported by: BHUPENDRA PARKS on 06/22/161320 Last Action: Last Taken Edited Metronidazole (Metronidazole) 500 Mg Tablet, 500 MG PO TID, (Reported) Entered as Reported by: TAY ARIAS on 05/28/21935 Last Action: Reviewed Zinc (Zinc) 50 Mg Tablet, 50 MG PO DAILY, (Reported) Entered as Reported by: TAY ARIAS on 05/28/21935 Last Action: Reviewed Past Piqwifm-Cjsiun-Xswvvk Hx Patient Social History Smoking Status: Current Everyday Smoker Former Smoker, Quit: Apr 25, 2016 Recent Hopitalizations: No Have you traveled recently?: No Tobacco type used: Cigarettes Immunizations Up To Date Date of Influenza Vaccine: Nov 27, 2020 Seasonal Allergies Seasonal Allergies: No Surgeries Appendectomy, Hysterectomy Reproductive System Hx Reproductive Disorders: No [employer] History: Hysterectomy Psychosocial Behavioral Health Disorders: Anxiety, Depression Family Medical History Family Hx: Alcoholism G8 BROTHER Asthma G8 BROTHER Drug abuse G8 BROTHER Kidney disease G8 BROTHER Psychosocial problem G8 BROTHER G8 SISTER Thyroid disease 19 MOTHER Review of Systems Constitutional: weakness Respiratory: No no symptoms reported, No see HPI, No cough, No dyspnea on exertion, No hemoptysis, No orthopnea, No phlegm, No short of breath, No stridor, No wheezing, No other Cardiovascular: No no symptoms reported, No see HPI, No chest pain, No edema, No Hx of Intervention, No palpitations, No syncope, No vascular heart diseas, No other Gastrointestinal: abdominal pain, constipation, diarrhea, loss of appetite, nausea, vomiting Musculoskeletal: muscle weakness Psychiatric/Neurological: Anxiety, Weakness Physical Exam Vital Signs Vital Signs - First Documented 05/27/21 16:40 Temp 36.0 Pulse 81 Resp 18 B/P (MAP) 145/73 (97) Pulse Ox 96 O2 Delivery Room Air Capillary Refill : Height, Weight, BMI Height: 5'5.00" Weight: 129lbs. 4.0oz. 58.372588jw; 21.20 BMI Method: General Appearance: Mild Distress HEENT: Other (MM dry) Neck: Supple Cardiovascular: Tachycardia Gastrointestinal: Normal Bowel Sounds, Soft, Tenderness (LLQ) Rectal: Deferred Back: No CVA Tenderness Extremity: Non Tender, No Calf Tenderness, No Pedal Edema Neurologic/Psychiatric: Alert, Oriented x3 Skin: Normal Color, Warm/Dry Comments Laboratory Tests 05/28/21 05:18: Sodium Level 137, Potassium Level 4.0, Chloride Level 104, Carbon Dioxide Level 21, Anion Gap 12, Blood Urea Nitrogen 5L, Creatinine 0.58L, Estimat Glomerular Filtration Rate 104, BUN/Creatinine Ratio 9, Glucose Level 93, Calcium Level 9.0 Short Stay Diagnosis Discharge Diagnosis-Short Stay Final Discharge Diagnosis: 1. Acute Hyponatremia and Hypochloremia due to Gastroenteritis--improved 2. Dehydration--improved 3. LLQ pain--improved 4. Constipation--stable 5. Weakness and fatigue--improving 6. Intractable nausea and vomiting--improved Conclusion Labs Laboratory Tests 05/28/21 05:18: Sodium Level 137, Potassium Level 4.0, Chloride Level 104, Carbon Dioxide Level 21, Anion Gap 12, Blood Urea Nitrogen 5L, Creatinine 0.58L, Estimat Glomerular Filtration Rate 104, BUN/Creatinine Ratio 9, Glucose Level 93, Calcium Level 9.0 Conclusion/Plan This is a 60 year old female admitted to the hospital for hyponatremia. She had a gastroenteritis last week. Her diarrhea had resolved and she had actually not had a BM for a few days. However, her nausea and vomiting continued and she was having worsening left lower quadrant pain. She was also very weak and lethargic. She was sent to the hospital for lab and a CT scan of her abdomen/pelvis. The lab showed a sodium of 125 and a chloride of 88 so she was directly admitted and started on IV Normal Saline. She was also given IV protonix and IV zofran. By the following day she was feeling much better. Her sodium was up to 137 and her chloride was up to 104. She was advanced from a clear liquid diet to a regular diet and was able to eat oatmeal with no nausea or vomiting. Due to constipation and gas on her CT scan of her abdomen and pelvis, she was given relistor on admit due to chronic narcotic use and the following day was given senokot-s with milk of magnesia. Her abdominal pain was much improved and she was feeling much better so it was decided she could be discharged to home and follow up with me in 1 week. She is instructed to increase her stool softener to twice a day and to stick with a bland diet for the next few days and push fluids. ROBERT CLINE DO May 28, 2021 18:26
== END 2021-05-28 12:20 | disposition home or self-care (01) ==
LOC: 4TH 16:20
PROVIDERS: ADMIT Family Medicine; ATTEND Family Medicine
DX: E87.1 Hypo-osmolality and hyponatremia (principal); E87.8 Other disorders of electrolyte and fluid balance, not elsewhere classified; E86.0 Dehydration; K59.00 Constipation, unspecified; R10.32 Left lower quadrant pain; R53.1 Weakness; R53.83 Other fatigue; R11.0 Nausea; F17.210 Nicotine dependence, cigarettes, uncomplicated; Z79.899 Other long term (current) drug therapy; Z79.891 Long term (current) use of opiate analgesic
CPT/HCPCS: 80048; G0378; G0379; 36415

== ENCOUNTER → 2021-05-27 | Outpatient (CLI) | payer OTHER ==
[~2021-05-27] MED LIST changes: -AMIT10TA6 PO; +AMIT50TA3 PO; +AMT10T PO; +BACL20TA PO; +BIOT25007 PO; +CALC600T91 PO; +CATHETER FLUSH 10 ML SYR IV PRN; +CHOL200074 PO; +CIPR500T5 PO; +CLON0.5T4 PO; +CYAN-41 PO; +DOCU-143 PO; +GBPN600T PO; +HOLD METFORMIN - RECEIVED CONTRAST 20 ML VIAL IV SCH; +HYDR-3820 PO; +IOHEXOL 350 MG/ML 100 ML (OMNIPAQUE 350) VIAL IV ONE; +LEVO5TAB28 PO; +MELA3TAB39 PO; +METR-145 PO; +NS 100 ML (IVPB) BAG IV ONE; +QUET50TA79 PO; +RT-ALBUINH IH; +VORT20TA PO; +ZINC50TA58 PO
[2021-05-27 15:24] LABS: HEMATOCRIT 39 % (35-52); HEMOGLOBIN 13.3 g/dL (11.5-16.0); MEAN CORPUSCULAR HEMOGLOBIN 31 pg (25-34); MEAN CORPUSCULAR HGB CONC 35 g/dL (32-36); MEAN CORPUSCULAR VOLUME 89 fL (80-99); MEAN PLATELET VOLUME 9.5 fL (9.0-12.2); PLATELET COUNT 158 10^3/uL (130-400); WHITE BLOOD COUNT 8.2 10^3/uL (4.3-11.0)
[2021-05-27 15:34] LABS: ALBUMIN 4.3 GM/DL (3.2-4.5); POTASSIUM 4.5 MMOL/L (3.6-5.0)
[2021-05-27 15:36] LABS: TOTAL PROTEIN 7.2 GM/DL (6.4-8.2)
[2021-05-27 15:38] LABS: BILIRUBIN,TOTAL 0.5 MG/DL (0.1-1.0)
[2021-05-27 15:40] LABS: CREATININE SERUM 0.89 MG/DL (0.60-1.30)
--- NOTE | 2021-05-27 16:25 | Diagnostic Imaging Report ---
PROCEDURE: CT abdomen and pelvis with contrast. TECHNIQUE: Multiple contiguous axial images were obtained through the abdomen and pelvis after administration of intravenous contrast. Auto Exposure Controls were utilized during the CT exam to meet ALARA standards for radiation dose reduction. All CT scans use one or more of the following dose optimizing techniques: automated exposure control, MA and/or KvP adjustment based on patient size and exam type or iterative reconstruction. INDICATION: Left lower quadrant pain, nausea, history of appendectomy and hysterectomy. COMPARISON: None. FINDINGS: The lung bases are clear. Liver, gallbladder, bile ducts, spleen, adrenals and pancreas all appear unremarkable. The stomach is distended with ingested material. No gastric wall thickening or perigastric edema. There is dense stool as well as likely contrast media within the proximal colon. No contrast extravasation. No pneumatosis. No free air. No findings of a viscus perforation. The colonic fecal load proximally is mildly elevated and may reflect mild proximal colonic constipation but no focal impaction and no bowel obstruction. The left colon is decompressed limiting its evaluation. Small amount of air at the rectal vault noted, nonpathologic. No small bowel dilatation. There is no perienteric or pericolonic edema. No diverticulitis. There is no abscess. The urinary bladder appears normal. The uterus absent. There is no adnexal lesion. There is no abdominopelvic, mesenteric or retroperitoneal lymphadenopathy. There is no hydroureteronephrosis. There are some simple left renal cortical cysts. No radiopaque stone. The atherosclerotic aorta nonaneurysmal. IMPRESSION: 1. Equivocal findings for mild proximal colonic constipation but no obstruction, impaction or perforation. 2. Likely distention and decompressed left colon limit evaluation of that structure. No appreciable focal inflammatory process found. No obstruction, perforation, abscess, hemorrhage or ascites. 3. Unobstructed nonacute urinary tracts. Nonaneurysmal atherosclerosis. No hepatobiliary abnormality. The pertinent results were left on the ordering physician's phone mail service at the number were called report was requested. Dictated by: Dictated on workstation # [id number]
== END ==
LOC: RAD 15:30
PROVIDERS: ATTEND Family Medicine
DX: K59.09 Other constipation (principal); R11.2 Nausea with vomiting, unspecified; R19.7 Diarrhea, unspecified; Z90.89 Acquired absence of other organs; Z90.710 Acquired absence of both cervix and uterus
CPT/HCPCS: 36415; 74177; 80053; 85027; 86141

== ENCOUNTER → 2021-07-22 | Outpatient (CLI) | payer OTHER ==
[~2021-07-22] MED LIST changes: +AMIT50TA3 PO; +BACL20TA PO; +BIOT25007 PO; +CALC600T91 PO; +CHOL200074 PO; +CIPR500T5 PO; +CLON0.5T4 PO; +CYAN-41 PO; +DOCU-143 PO; +GBPN600T PO; +HYDR-3820 PO; +LEVO5TAB28 PO; +MELA3TAB39 PO; +METR-145 PO; +QUET50TA79 PO; +RT-ALBUINH IH; +VORT20TA PO; +ZINC50TA58 PO
--- NOTE | 2021-07-23 10:46 | Diagnostic Imaging Report ---
INDICATION: Routine screening. Comparison is made with prior mammogram 05/17/2020 and 06/05/2018. 2-D and 3-D bilateral screening mammography was performed with CAD. Both breasts are heterogeneously dense, limiting the sensitivity of mammography. Benign calcifications are noted bilaterally. No mass or malignant-appearing microcalcifications are seen. Axillae are unremarkable. IMPRESSION: No mammographic features suspicious for malignancy are identified. ACR BI-RADS Category 2: Benign findings. Result letter will be mailed to the patient. Note: At least 10% of breast cancer is not imaged by mammography. BI-RADS Category 2 Dictated by: Dictated on workstation # [id number]
== END ==
LOC: RAD 15:30
PROVIDERS: ATTEND Family Medicine
DX: Z12.31 Encounter for screening mammogram for malignant neoplasm of breast (principal)
CPT/HCPCS: 77063; 77067

== ENCOUNTER → 2021-12-03 | Outpatient (CLI) | payer OTHER ==
--- NOTE | 2021-12-03 18:54 | Diagnostic Imaging Report ---
PROCEDURE: MRI lumbar spine. TECHNIQUE: Multiplanar, multisequence MRI of the lumbar spine was performed without contrast. INDICATION: Low back pain. COMPARISON: May 13, 2020. FINDINGS: There is a very slight degenerative retrolisthesis of L2 on L3 and L3 on L4. Alignment is otherwise normal. The vertebral body heights are maintained. There are no marrow signal changes present to suggest an acute osseous injury. There are multilevel degenerative endplate changes which are most advanced at L4-L5 where there is a combination of Modic type I and type II endplate changes. There is lower lumbar facet arthropathy but no definable pars defect. The distal thoracic cord demonstrates no findings of cord signal abnormality or expansion. The intrathecal nerve roots demonstrate no thickening or clumping. There is no abnormal epidural process. There is no significant lower thoracic canal stenosis. At L1-L2 there are no findings of significant stenosis. At L2-L3 there is disc herniation with disc bulging and a small annular tear. There also appears to be a right lateral superiorly migrated disc extrusion. This is new from the prior exam and results in severe narrowing of the right lateral recess. There is minimal narrowing of the central canal. There is no significant left lateral recess stenosis. There is severe right and mild left foraminal stenosis. At L3-L4 there is endplate spurring, disc bulging, facet arthropathy and ligamentous thickening with mild narrowing of the central canal. There is moderate narrowing of both lateral recesses. There is mild to moderate far lateral right and mild left foraminal stenosis. At L4-L5 there is severe disc space height loss. There is endplate spurring, disc bulging and facet arthropathy. There is mild narrowing of the central canal and moderate narrowing of both lateral recesses. There is severe far lateral right and [id number] left foraminal stenosis. At the L5-S1 level there is minimal disc bulge. There is no significant canal or lateral recess stenosis. Hypertrophic facets contribute to [id number] left and moderate to severe right foraminal stenosis. The paraspinal soft tissues are unremarkable. The aorta is normal in caliber. The kidneys appear nonobstructed. IMPRESSION: 1. Multilevel lumbar degenerative disc disease and facet arthropathy without MR findings of an acute osseous injury or suspicious marrow replacing lesion. Most advanced endplate changes are at L4-L5 which have progressed compared to the previous exam. 2. Variable degrees of stenosis throughout the lumbar spine are detailed above level by level. 3. There is a new right lateral disc extrusion at L2-L3 resulting in high-grade right lateral recess and neural foraminal stenosis at that level. 4. Otherwise, most significant stenoses are at the L4-L5 level, as described. Dictated by: Dictated on workstation # [id number]
== END ==
LOC: RAD 13:38
PROVIDERS: ATTEND Family Medicine
DX: M51.36 Other intervertebral disc degeneration, lumbar region (principal); M47.816 Spondylosis without myelopathy or radiculopathy, lumbar region; M48.061 Spinal stenosis, lumbar region without neurogenic claudication; M43.16 Spondylolisthesis, lumbar region; M46.06 Spinal enthesopathy, lumbar region; G62.9 Polyneuropathy, unspecified
CPT/HCPCS: 72148

== ENCOUNTER 2022-01-07 11:30 | Emergency (ER) | payer OTHER ==
[~2022-01-07] VITALS: Ht 160 cm; Wt 55.7 kg
[2022-01-07 11:55] VITALS: BP_SYST 76; BP_SYST 77; BP_SYST 90; BP_DIAS 46; BP_DIAS 49; BP_DIAS 55
--- NOTE | 2022-01-07 11:56 | ED Fall/Injury ---
General Chief Complaint: Dizziness/Syncope Stated Complaint: DIZZY/LIGHTHEADED Nursing Triage Note: PT AMB TO [facility] 8 WITH COMPLAINT OF DIZZINESS FOR A FEW DAYS. STATES SHE FELL A FEW DAYS AGO AND HIT HEAD. SYMPTOMS STARTED AFTER. History of Present Illness Date Seen by Provider: Jan 07, 2022 Time Seen by Provider: 11:35 Initial Comments 61-year-old female presents for a fall that occurred on 01/05/2022, at home on her wooden porch. She fell backwards, after loosing her balance. No LOC, abrasion or hematoma noted. She denies nausea/vomiting or headache. Since the fall, she has experienced vertigo while walking. She denies vertigo at this time. She takes Hydrocodone 10/325 mg, Flexeril 10 mg, Gabapentin 600mg, elavil, and Clonazapam 0.5 mg for back pain and to assist with sleeping. Occurred: other (01/05/22) Injuries/Pain Location: head Context: lost balance Loss of Consciousness: no loss of consciousness Associated Symptoms (Fall): No Abdominal Pain, No Chest Pain, No Confusion; Dizziness; No Headache, No Lightheadedness, No Muscle Spasms, No Nausea/Vomiting, No Neck Pain, No Seizures, No Slurred Speech, No Trouble Walking, No Vision Changes Allergies and Home Medications Allergies Coded Allergies: No Known Drug Allergies (Unverified , 04/01/11) Patient Home Medication List Home Medication List Reviewed: Yes Albuterol Sulfate (Proair Hfa) 1 Puff Puff, 2 PUFF IH Q4H PRN for SHORTNESS OF BREATH, (Reported) Entered as Reported by: TAY ARIAS on 05/28/21935 Biotin (Biotin) 2,500 Mcg Capsule, 2,500 MCG PO DAILY, (Reported) Entered as Reported by: TAY ARIAS on 05/28/21935 Calcium Carbonate (Calcium) 600 Mg Tablet, 600 MG PO DAILY, (Reported) Entered as Reported by: TAY ARIAS on 05/28/21935 Cholecalciferol (Vitamin D3) (Vitamin D3) 50 Mcg Capsule, 50 MCG PO DAILY, (Reported) Entered as Reported by: TAY ARIAS on 05/28/21935 Clonazepam (Clonazepam) 0.5 Mg Tablet, 0.25 MG PO TID, (Reported) Entered as Reported by: ALFONZO ISIDRO on 05/27/21 164 Cyanocobalamin (Vitamin B-12) (Vitamin B-12) 1,000 Mcg Tablet, 1,000 MCG PO DAILY, (Reported) Entered as Reported by: TAY ARIAS on 05/28/21936 Docusate Sodium (Colace) 100 Mg Capsule, 100 MG PO BID Prescribed by: ROBERT DUKES on 05/28/21 1150 Gabapentin (Gabapentin) 600 Mg Tablet, 600 MG PO TID, (Reported) Entered as Reported by: TAY ARIAS on 05/28/21936 Hydrocodone/Acetaminophen (Hydrocodone-Acetamin 10-325 mg) 1 Each Tablet, 1 EACH PO QID PRN for PAIN-MODERATE (5-7), (Reported) Entered as Reported by: TAY ARIAS on 05/28/21936 Melatonin (Melatonin) 3 Mg Tablet, 3 MG PO HS, (Reported) Entered as Reported by: TAY ARIAS on 05/28/21935 Multivitamin (Multivitamins) 1 Each Tablet, 1 EACH PO DAILY, (Reported) Entered as Reported by: BHUPENDRA PARKS on 06/22/16 1321 Pravastatin Sodium (Pravastatin Sodium) 40 Mg Tablet, 40 MG PO HS, (Reported) Entered as Reported by: BHUPENDRA PARKS on 06/22/16 1321 Quetiapine Fumarate (Quetiapine Fumarate ER) 50 Mg Tab.er.24h, 100 MG PO HS, (Reported) Entered as Reported by: ALFONZO ISIDRO on 05/27/211640 Vortioxetine Hydrobromide (Trintellix) 20 Mg Tablet, 20 MG PO DAILY, (Reported) Entered as Reported by: TAY ARIAS on 05/28/21935 Review of Systems Review of Systems Constitutional: see HPI, dizziness Eyes: No Symptoms Reported, See HPI; Denies Blurred Vision, Denies Photophobia Ears, Nose, Mouth, Throat: no symptoms reported, see HPI Respiratory: no symptoms reported, see HPI Cardiovascular: no symptoms reported, see HPI; No chest pain Gastrointestinal: no symptoms reported, see HPI; No abdominal pain, No nausea, No vomiting Psychiatric/Neurological: See HPI All Other Systems Reviewed Negative Unless Noted: Yes Past Fqficbp-Kozlle-Wyzjsd Hx Patient Social History Tobacco Use?: Yes Tobacco type used: Cigarettes Smoking Status: Current Everyday Smoker Use of E-Cig and/or Vaping dev: No Substance use?: No Alcohol Use?: No Pt feels they are or have been: No Immunizations Up To Date First/Initial COVID19 Vaccinat: 04/05/20 Second COVID19 Vaccination Sergey: 04/25/20 Third COVID19 Vaccination Date: 01/22/21 Seasonal Allergies Seasonal Allergies: No Past Medical History Appendectomy, Hysterectomy Reproductive Disorders: No [employer] History: Hysterectomy Anxiety, Depression Family Medical History Reviewed Nursing Family Hx Alcoholism G8 BROTHER Asthma G8 BROTHER Drug abuse G8 BROTHER Kidney disease G8 BROTHER Psychosocial problem G8 BROTHER G8 SISTER Thyroid disease 19 MOTHER Physical Exam Vital Signs Vital Signs - First Documented 01/07/22 11:35 Temp 35.5 Pulse 109 Resp 20 B/P (MAP) 91/62 (72) Pulse Ox 93 Capillary Refill : Less Than 3 Seconds Height, Weight, BMI Height: 5'5.00" Weight: 129lbs. 4.0oz. 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, no motor/sensory deficits, alert, normal mood/affect, oriented x 3 Skin: normal color, warm/dry Joie Coma Score Best Eye Response: (4) Open Spontaneously Best Verbal Response: (5) Oriented Best Motor Response: (6) Obeys Commands [place] Total: 15 Progress/Results/Core Measures Results/Orders Lab Results Laboratory Tests Test 01/07/22 11:42 Range/Units Glucometer 103 70-110 MG/DL My Orders Orders - ALFONZO VILCHIS Accucheck Stat ONCE (01/07/22 11:38) Ct Head Wo (01/07/22 11:49) Orthostatic Vital Signs (Adult (01/07/22 11:50) Vital Signs/I&O 01/07/22 01/07/22 11:35 11:55 Temp 35.5 Pulse 109 106 109 109 Resp 20 B/P (MAP) 91/62 (72) 90/55 (67) 76/49 (58) 77/46 (56) Pulse Ox 93 Blood Pressure Mean: 72 FSBG Bedside Testing Finger Stick Blood Glucose: 103 Blood Glucose Action Taken: PROVIDER NOTIFIED Progress Progress Note : Time: 11:35 Progress Note Patient seen and evaluated, Accu-Chek 103. Will obtain CT of the head. 1220 CT neg. Discussed with patient concern over medications she is taking and her hypotension, fall/vertigo. Encouraged she follow up with her PCP to decrease or stop some of the medications. Discharge instructions and return precautions reviewed. Diagnostic Imaging Diagonstic Imaging: CT Comments NAME: CASSIE RANDALL [facility] REC#: [id number] PT STATUS: REG ER : 1960 PHYSICIAN: ALFONZO VILCHIS ADMIT DATE: 01/07/22/ER Draft Date of Exam:01/07/22 CT HEAD WO EXAMINATION: CT head without contrast. TECHNIQUE: Multiple contiguous axial images were obtained through the brain without the use of intravenous contrast. All CT scans use one or more of the following dose optimizing techniques: automated exposure control, MA and/or KvP adjustment based on patient size and exam type or iterative reconstruction. HISTORY: Head pain after fall. COMPARISON: None available. FINDINGS: The ventricles and sulci are normal. No abnormal attenuation of brain parenchyma is present. No acute intracranial hemorrhage or abnormal extra-axial fluid collections are present. No hyperdense vessel. The calvarium is intact. The mastoid air cells are clear. The visualized paranasal sinuses are clear. The orbits are normal. IMPRESSION: 1. No acute intracranial abnormality. Dictated on workstation # [id number] Dict: 01/07/22 1213 Trans: 01/07/22 1218 [id number] Interpreted by: TOMER DIGGS DO Electronically signed by: Reviewed: Reviewed by Me Departure Impression Primary Impression: Fall Qualified Codes: W19.XXXA - Unspecified fall, initial encounter Additional Impression: Vertigo Disposition: 01 HOME, SELF-CARE Condition: Improved Departure-Patient Inst. Decision time for Depature: 12:20 Referrals: ROBERT DUKES DO (PCP/Family) Primary Care Physician Patient Instructions: Vertigo (a Type of Dizziness) (DC) Copy Copies To 1: ROBERT DUKES AMY ARNP Jan 07, 2022 11:56
--- NOTE | 2022-01-07 12:18 | Diagnostic Imaging Report ---
EXAMINATION: CT head without contrast. TECHNIQUE: Multiple contiguous axial images were obtained through the brain without the use of intravenous contrast. All CT scans use one or more of the following dose optimizing techniques: automated exposure control, MA and/or KvP adjustment based on patient size and exam type or iterative reconstruction. HISTORY: Head pain after fall. COMPARISON: None available. FINDINGS: The ventricles and sulci are normal. No abnormal attenuation of brain parenchyma is present. No acute intracranial hemorrhage or abnormal extra-axial fluid collections are present. No hyperdense vessel. The calvarium is intact. The mastoid air cells are clear. The visualized paranasal sinuses are clear. The orbits are normal. IMPRESSION: 1. No acute intracranial abnormality. Dictated by: Dictated on workstation # [id number]
[2022-01-07 12:34] VITALS: BP 81/52
[2022-01-08] MEDS ORDERED: PANT40TA52 PO (15:16)
[2022-01-08] MEDS ORDERED: BUSP30TA2 PO ×2 (15:16)
[2022-01-08] MEDS ORDERED: QUET50TA23 PO (15:16)
[2022-01-08] MEDS ORDERED: ONDA4TAB11 PO (15:16)
[2022-01-08] MEDS ORDERED: QUET300T71 PO (15:16)
[2022-01-08] MEDS ORDERED: AMIT50TA3 PO (15:16)
[2022-01-08] MEDS ORDERED: MULT-10 PO (15:17)
[2022-01-08] MEDS ORDERED: CYCL10TA25 PO (15:22)
== END 2022-01-07 12:34 | disposition home or self-care (01) ==
LOC: EDUNIT# 11:30 → ER 11:32
DX: R42 Dizziness and giddiness (principal); F17.210 Nicotine dependence, cigarettes, uncomplicated; W01.0XXA Fall on same level from slipping, tripping and stumbling without subsequent striking against object, initial encounter; Y92.009 Unspecified place in unspecified non-institutional (private) residence as the place of occurrence of the external cause
CPT/HCPCS: 70450; 82947

== ENCOUNTER 2022-01-07 23:09 | Inpatient (IN) | payer OTHER ==
[~2022-01-07] VITALS: Ht 160 cm; Wt 68.7 kg
[2022-01-07] MEDS ORDERED: NS IV 1000 ML 1,000 ML ONE (23:29)
[2022-01-07] MEDS ORDERED: NALOXONE 0.4 MG/ML 1 ML (NARCAN) VIAL IV ONE ×2 (23:30→23:45)
[2022-01-07] MEDS: NALOXONE 0.4 MG/ML 1 ML (NARCAN) VIAL ONE ×2 (23:33→23:36)
[2022-01-07 23:41] LABS: BASOPHILS % (AUTO) 0 % (0-10); EOSINOPHILS # (AUTO) 0.1 10^3/uL (0.0-0.3); EOSINOPHILS % (AUTO) 0 % (0-10); HEMATOCRIT 32 % (35-52); HEMOGLOBIN 11.6 g/dL (11.5-16.0); LYMPHOCYTES # (AUTO) 0.8 10^3/uL (1.0-4.0); LYMPHOCYTES % (AUTO) 3 % (12-44); MEAN CORPUSCULAR HEMOGLOBIN 31 pg (25-34); MEAN CORPUSCULAR HGB CONC 37 g/dL (32-36); MEAN CORPUSCULAR VOLUME 84 fL (80-99); MEAN PLATELET VOLUME 9.1 fL (9.0-12.2); MONOCYTES % (AUTO) 7 % (0-12); NEUTROPHILS # (AUTO) 25.9 10^3/uL (1.8-7.8); NEUTROPHILS % (AUTO) 86 % (42-75); PLATELET COUNT 282 10^3/uL (130-400)
[2022-01-07 23:42] LABS: ABG BASE EXCESS -4.2 MMOL/L (-2.5-2.5); ABG OXYGEN SATURATION 96 % (94-100); ABG PCO2 33 MMHG (35-45); ABG PO2 66 MMHG (79-93); ABG TCO2 21.1 MMOL/L (21.0-31.0); ALLENS TEST YES-POS; PATIENT TEMP 36.1; VENTILATOR NO
[2022-01-07] MEDS ORDERED: NS IV 1000 ML 1,000 ML IV SCH (23:45)
[2022-01-08 00:05] LABS: INR 1.6 (0.8-1.4); PROTHROMBIN TIME PATIENT 19.8 SEC (12.2-14.7)
[2022-01-08 00:13] LABS: ACETAMINOPHEN < 10 UG/ML (10-30); ALANINE AMINOTRANSFERASE 27 U/L (0-55); ALBUMIN 3.2 GM/DL (3.2-4.5); ALKALINE PHOSPHATASE 136 U/L (40-136); BILIRUBIN,TOTAL 0.8 MG/DL (0.1-1.0); BUN/CREATININE RATIO 19; CARBON DIOXIDE 17 MMOL/L (21-32); CHLORIDE 80 MMOL/L (98-107); CREATININE SERUM 1.93 MG/DL (0.60-1.30); GFR ESTIMATED 29; GLUCOSE 77 MG/DL (70-105); MAGNESIUM 1.5 MG/DL (1.6-2.4); POTASSIUM 4.3 MMOL/L (3.6-5.0); SALICYLATE < 5.0 MG/DL (5.0-20.0); TOTAL PROTEIN 6.7 GM/DL (6.4-8.2)
[2022-01-08 00:24] LABS: SODIUM 115 MMOL/L (135-145)
[2022-01-08 00:30] LABS: WHITE BLOOD COUNT 30.2 10^3/uL (4.3-11.0)
[2022-01-08 00:32] LABS: BAND NEUTROPHILS 22 %; LYMPHOCYTES % (MANUAL) 6 %; NEUTROPHILS % (MANUAL) 64 %
[2022-01-08 00:33] LABS: BURR CELLS SLIGHT; MONOCYTES % (MANUAL) 8 %; SPHEROCYTES SLIGHT
[2022-01-08] MEDS ORDERED: MAGNESIUM 1 GM/100 ML IVPB 100 ML IV ONE (00:45)
[2022-01-08] MEDS ORDERED: CEFEPIME INJECTION 2,000 MG in NS (IVPB) 50 ML IV ONE (01:15)
--- NOTE | 2022-01-08 01:21 | ED General ---
General Chief Complaint: Neurological Problems Stated Complaint: SOB,AMS,POSSIBLE STROKE,FALL YESTERDAY Nursing Triage Note: INCREASED CONFUSION, AMS SINCE TUESDAY, RIGHT LEG WEAKNESS TONIGHT. FREQUENT FALLS Source of Information: Patient Exam Limitations: No Limitations History of Present Illness Date Seen by Provider: Jan 07, 2022 Time Seen by Provider: 23:15 Initial Comments This 61-year-old woman presents to the emergency room with lethargy, hypoxia, hypotension, and altered mental status. She had been seen earlier in the day for a head injury but was ambulatory and alert at that time. CT of the head was negative. She had had a fall yesterday and struck her head. Patient is noted to take numerous sedating medications prescribed by multiple providers. She has some cough but denies any fever. She complains of a mild pain at the right chest wall but otherwise complains of no pain or injury. She is very somnolent but does respond to voice. She is brought to the emergency room by her brother. He became concerned when he received text messages from her. He went to her home to check on her and found her in this condition. Oxygen saturations were as low as the 60s upon arrival and systolic blood pressure was in the 70s. Patient states she would like him Ritchie, her ex-, to be her decision- maker if she should become incapacitated. Allergies and Home Medications Allergies Coded Allergies: No Known Drug Allergies (Unverified , 04/01/11) Patient Home Medication List Home Medication List Reviewed: Yes Albuterol Sulfate (Proair Hfa) 1 Puff Puff, 2 PUFF IH Q4H PRN for SHORTNESS OF BREATH, (Reported) Entered as Reported by: TAY ARIAS on 05/28/21935 Biotin (Biotin) 2,500 Mcg Capsule, 2,500 MCG PO DAILY, (Reported) Entered as Reported by: TAY ARIAS on 05/28/21935 Calcium Carbonate (Calcium) 600 Mg Tablet, 600 MG PO DAILY, (Reported) Entered as Reported by: TAY ARIAS on 05/28/21935 Cholecalciferol (Vitamin D3) (Vitamin D3) 50 Mcg Capsule, 50 MCG PO DAILY, (Rep orted) Entered as Reported by: TAY ARIAS on 05/28/21935 Clonazepam (Clonazepam) 0.5 Mg Tablet, 0.25 MG PO TID, (Reported) Entered as Reported by: ALFONZO ISIDRO on 05/27/21 164 Cyanocobalamin (Vitamin B-12) (Vitamin B-12) 1,000 Mcg Tablet, 1,000 MCG PO DAILY, (Reported) Entered as Reported by: TAY ARIAS on 05/28/21936 Docusate Sodium (Colace) 100 Mg Capsule, 100 MG PO BID Prescribed by: ROBERT CLINE on 05/28/21 1150 Gabapentin (Gabapentin) 600 Mg Tablet, 600 MG PO TID, (Reported) Entered as Reported by: TAY ARIAS on 05/28/21936 Hydrocodone/Acetaminophen (Hydrocodone-Acetamin 10-325 mg) 1 Each Tablet, 1 EACH PO QID PRN for PAIN-MODERATE (5-7), (Reported) Entered as Reported by: TAY ARIAS on 05/28/21936 Melatonin (Melatonin) 3 Mg Tablet, 3 MG PO HS, (Reported) Entered as Reported by: TAY ARIAS on 05/28/21935 Multivitamin (Multivitamins) 1 Each Tablet, 1 EACH PO DAILY, (Reported) Entered as Reported by: BHUPENDRA PARKS on 06/22/16 132 Pravastatin Sodium (Pravastatin Sodium) 40 Mg Tablet, 40 MG PO HS, (Reported) Entered as Reported by: BHUPENDRA PARKS on 06/22/16 132 Quetiapine Fumarate (Quetiapine Fumarate ER) 50 Mg Tab.er.24h, 100 MG PO HS, (Reported) Entered as Reported by: ALFONZO ISIDRO on 05/27/21 164 Vortioxetine Hydrobromide (Trintellix) 20 Mg Tablet, 20 MG PO DAILY, (Reported) Entered as Reported by: TAY ARIAS on 05/28/21935 Review of Systems Review of Systems Constitutional: see HPI, weakness EENTM: other (Dry mouth) Respiratory: see HPI Cardiovascular: see HPI Gastrointestinal: vomiting (Family reported vomiting x3) : No Musculoskeletal: no symptoms reported Skin: no symptoms reported Psychiatric/Neurological: See HPI Hematologic/Lymphatic: No Symptoms Reported Immunological/Allergic: no symptoms reported Past Ydkpaug-Lqykih-Sbfkna Hx Patient Social History Tobacco Use?: Yes Tobacco type used: Cigarettes Smoking Status: Current Everyday Smoker Substance use?: No Alcohol Use?: No Pt feels they are or have been: No Immunizations Up To Date First/Initial COVID19 Vaccinat: 04/05/20 Second COVID19 Vaccination Sergey: 04/25/20 Third COVID19 Vaccination Date: 01/22/21 Seasonal Allergies Seasonal Allergies: No Past Medical History Surgery/Hospitalization HX: HYSTERECTOMY,APPENDETOMY, ANXIETY, DEPPRESSION, CHRONIC PAIN. 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 Genitourinary: No Gastrointestinal: No Musculoskeletal: Yes Chronic Back Pain Endocrine: No HEENT: No Cancer: No Psychosocial: Yes Anxiety, Depression Family Medical History Alcoholism G8 BROTHER Asthma G8 BROTHER Drug abuse G8 BROTHER Kidney disease G8 BROTHER Psychosocial problem G8 BROTHER G8 SISTER Thyroid disease 19 MOTHER Physical Exam-Suspected Sepsis Physical Exam Vital Signs Vital Signs - First Documented 01/07/22 01/08/22 23:20 04:00 Temp 36.0 Pulse 113 Resp 16 B/P (MAP) 78/51 (60) Pulse Ox 99 O2 Delivery OxyMask O2 Flow Rate 10.00 FiO2 80 Capillary Refill : Less Than 3 Seconds Blood Pressure Mean: 60 Height, Weight, BMI Height: 5'5.00" Weight: 129lbs. 4.0oz. [id number]; 21.00 BMI Method: General Appearance: WD/WN, Thin, Other (Lethargic) HEENT: PERRL/EOMI, Normal ENT Inspection, Other (Dry oropharynx) Neck: Normal Inspection Respiratory: Chest Non Tender, No Accessory Muscle Use, No Respiratory Distress, Rhonci (Minimal), Other (Coarse cough) Cardiovascular: No Edema, No Murmur, Tachycardia Gastrointestinal: Normal Bowel Sounds, Non Tender, Soft Extremity: Normal Inspection, Non Tender, No Pedal Edema Neurologic/Psychiatric: No Motor/Sensory Deficits, track helper II-XII Norm as Tested, Other (Patient is somnolent with dulled mentation. She is responsive to voice and follows commands. She is alert to person, place, and age. She appears to have no focal motor deficits.) Skin: normal color, warm/dry Focused Exam Sepsis Stage: Septic Shock Possible Source: Pulmonary Lactate Level 01/07/22 23:30: Lactic Acid Level 1.86 Time of Focused Exam: 02:15 Respiratory: No Respiratory Distress, Crackles (Coarse crackles, right greater than left) Cardiovascular: No Edema, No Murmur, Tachycardia Capillary Refill: Less Than 3 Seconds Peripheral Pulses: 2+ Radial Pulses (L) Skin: normal color, warm/dry Lactic Acid Level Within 3hrs of presentation: Admin fluids, Admin 30ml/kg IBW due to BMI>30, Admin ABX, Blood cultures prior to ABX's, Focus exam, Lactate level Progress/Results/Core Measures Suspected Sepsis SIRS Temperature: Pulse: 113 Respiratory Rate: 16 Laboratory Tests 01/07/22 23:30: White Blood Count 30.2*H 01/08/22 03:30: White Blood Count 17.6H Blood Pressure 78 /51 Mean: 60 01/07/22 23:30: Lactic Acid Level 1.86 Laboratory Tests 01/07/22 23:30: Creatinine 1.93H, INR Comment 1.6H, Platelet Count 282, Total Bilirubin 0.8 01/08/22 03:30: Creatinine 1.35H, Platelet Count 179, Total Bilirubin 0.5 Results/Orders Lab Results Laboratory Tests Test 01/07/22 23:28 01/07/22 23:30 01/07/22 23:36 01/07/22 23:45 Range/Units Glucometer 92 70-110 MG/DL White Blood Count 30.2 *H 4.3-11.0 10^3/uL Red Blood Count 3.79 L 3.80-5.11 10^6/uL Hemoglobin 11.6 11.5-16.0 g/dL Hematocrit 32 L 35-52 % Mean Corpuscular Volume 84 80-99 fL Mean Corpuscular Hemoglobin 31 25-34 pg Mean Corpuscular Hemoglobin Concent 37 H 32-36 g/dL Red Cell Distribution Width 13.8 10.0-14.5 % Platelet Count 282 130-400 10^3/uL Mean Platelet Volume 9.1 9.0-12.2 fL Immature Granulocyte % (Auto) 4 % Neutrophils (%) (Auto) 86 H 42-75 % Lymphocytes (%) (Auto) 3 L 12-44 % Monocytes (%) (Auto) 7 0-12 % Eosinophils (%) (Auto) 0 0-10 % Basophils (%) (Auto) 0 0-10 % Neutrophils # (Auto) 25.9 H 1.8-7.8 10^3/uL Lymphocytes # (Auto) 0.8 L 1.0-4.0 10^3/uL Monocytes # (Auto) 2.0 H 0.0-1.0 10^3/uL Eosinophils # (Auto) 0.1 0.0-0.3 10^3/uL Basophils # (Auto) 0.0 0.0-0.1 10^3/uL Immature Granulocyte # (Auto) 1.3 H 0.0-0.1 10^3/uL Neutrophils % (Manual) 64 % Lymphocytes % (Manual) 6 % Monocytes % (Manual) 8 % Band Neutrophils 22 % Spherocytes SLIGHT Willi Cells SLIGHT Prothrombin Time 19.8 H 12.2-14.7 SEC INR Comment 1.6 H 0.8-1.4 Activated Partial Thromboplast Time 42 H 24-35 SEC D-Dimer 3.92 H 0.00-0.49 UG/ML Sodium Level 115 *L 135-145 MMOL/L Potassium Level 4.3 3.6-5.0 MMOL/L Chloride Level 80 L 98-107 MMOL/L Carbon Dioxide Level 17 L 21-32 MMOL/L Anion Gap 18 H 5-14 MMOL/L Blood Urea Nitrogen 36 H 7-18 MG/DL Creatinine 1.93 H 0.60-1.30 MG/DL Estimat Glomerular Filtration Rate 29 BUN/Creatinine Ratio 19 Glucose Level 77 70-105 MG/DL Lactic Acid Level 1.86 0.50-2.00 MMOL/L Calcium Level 9.0 8.5-10.1 MG/DL Corrected Calcium 9.6 8.5-10.1 MG/DL Magnesium Level 1.5 L 1.6-2.4 MG/DL Total Bilirubin 0.8 0.1-1.0 MG/DL Aspartate Amino Transf (AST/SGOT) 38 H 5-34 U/L Alanine Aminotransferase (ALT/SGPT) 27 0-55 U/L Alkaline Phosphatase 136 40-136 U/L Myoglobin 608.0 H 10.0-92.0 NG/ML Troponin I < 0.028 <0.028 NG/ML C-Reactive Protein High Sensitivity 43.85 H 0.00-0.50 MG/DL B-Type Natriuretic Peptide 232.7 H <100.0 PG/ML Total Protein 6.7 6.4-8.2 GM/DL Albumin 3.2 3.2-4.5 GM/DL Procalcitonin 10.02 H <0.10 NG/ML Salicylates Level < 5.0 L 5.0-20.0 MG/DL Acetaminophen Level < 10 L 10-30 UG/ML Serum Alcohol < 10 <10 MG/DL Blood Gas Puncture Site LRAD Blood Gas Patient Temperature 36.1 Arterial Blood pH 7.40 7.37-7.43 Arterial Blood Partial Pressure CO2 33 L 35-45 MMHG Arterial Blood Partial Pressure O2 66 L 79-93 MMHG Arterial Blood HCO3 20 L 23-27 MMOL/L Arterial Blood Total CO2 21.1 21.0-31.0 MMOL/L Arterial Blood Oxygen Saturation 96 94-100 % Arterial Blood Base Excess -4.2 L -2.5-2.5 MMOL/L Wiley Test YES-POS Blood Gas Ventilator Setting NO Blood Gas Inspired Oxygen UNKNOWN Total Creatine Kinase 290 H 29-168 U/L Influenza Type A (RT-PCR) Not Detected Not Detecte Influenza Type B (RT-PCR) Not Detected Not Detecte SARS-CoV-2 RNA (RT-PCR) Not Detected Not Detecte Test 01/08/22 01:24 01/08/22 01:25 01/08/22 03:30 Range/Units Ammonia 18 11-32 UMOL/L Urine Color YELLOW Urine Clarity CLEAR Urine pH 5.0 5-9 Urine Specific [place] 1.015 L 1.016-1.022 Urine Protein TRACE H NEGATIVE Urine Glucose (UA) NEGATIVE NEGATIVE Urine Ketones NEGATIVE NEGATIVE Urine Nitrite NEGATIVE NEGATIVE Urine Bilirubin NEGATIVE NEGATIVE Urine Urobilinogen 0.2 < = 1.0 MG/DL Urine Leukocyte Esterase NEGATIVE NEGATIVE Urine RBC (Auto) TRACE-I H NEGATIVE Urine RBC NONE /HPF Urine WBC 0-2 /HPF Urine Squamous Epithelial Cells RARE /HPF Urine Crystals NONE /LPF Urine Bacteria FEW H /HPF Urine Casts PRESENT /LPF Urine Hyaline Casts 0-2 H /LPF Urine Mucus NEGATIVE /LPF Urine Culture Indicated NO Urine Opiates Screen POSITIVE H NEGATIVE Urine Oxycodone Screen NEGATIVE NEGATIVE Urine Methadone Screen NEGATIVE NEGATIVE Urine Propoxyphene Screen NEGATIVE NEGATIVE Urine Barbiturates Screen NEGATIVE NEGATIVE Ur Tricyclic Antidepressants Screen POSITIVE H NEGATIVE Urine Phencyclidine Screen NEGATIVE NEGATIVE Urine Amphetamines Screen NEGATIVE NEGATIVE Urine Methamphetamines Screen NEGATIVE NEGATIVE Urine Benzodiazepines Screen NEGATIVE NEGATIVE Urine Cocaine Screen NEGATIVE NEGATIVE Urine Cannabinoids Screen POSITIVE H NEGATIVE White Blood Count 17.6 H 4.3-11.0 10^3/uL Red Blood Count 3.45 L 3.80-5.11 10^6/uL Hemoglobin 10.4 L 11.5-16.0 g/dL Hematocrit 29 L 35-52 % Mean Corpuscular Volume 85 80-99 fL Mean Corpuscular Hemoglobin 30 25-34 pg Mean Corpuscular Hemoglobin Concent 36 32-36 g/dL Red Cell Distribution Width 13.9 10.0-14.5 % Platelet Count 179 130-400 10^3/uL Mean Platelet Volume 9.4 9.0-12.2 fL Immature Granulocyte % (Auto) 2 % Neutrophils (%) (Auto) 86 H 42-75 % Lymphocytes (%) (Auto) 3 L 12-44 % Monocytes (%) (Auto) 8 0-12 % Eosinophils (%) (Auto) 1 0-10 % Basophils (%) (Auto) 1 0-10 % Neutrophils # (Auto) 15.1 H 1.8-7.8 10^3/uL Lymphocytes # (Auto) 0.5 L 1.0-4.0 10^3/uL Monocytes # (Auto) 1.4 H 0.0-1.0 10^3/uL Eosinophils # (Auto) 0.1 0.0-0.3 10^3/uL Basophils # (Auto) 0.1 0.0-0.1 10^3/uL Immature Granulocyte # (Auto) 0.4 H 0.0-0.1 10^3/uL Sodium Level 115 *L 135-145 MMOL/L Potassium Level 4.3 3.6-5.0 MMOL/L Chloride Level 87 L 98-107 MMOL/L Carbon Dioxide Level 16 L 21-32 MMOL/L Anion Gap 12 5-14 MMOL/L Blood Urea Nitrogen 31 H 7-18 MG/DL Creatinine 1.35 H 0.60-1.30 MG/DL Estimat Glomerular Filtration Rate 45 BUN/Creatinine Ratio 23 Glucose Level 86 70-105 MG/DL Calcium Level 7.5 L 8.5-10.1 MG/DL Total Bilirubin 0.5 0.1-1.0 MG/DL Direct Bilirubin 0.2 0.0-0.3 MG/DL Indirect Bilirubin 0.3 MG/DL Aspartate Amino Transf (AST/SGOT) 43 H 5-34 U/L Alanine Aminotransferase (ALT/SGPT) 22 0-55 U/L Alkaline Phosphatase 103 40-136 U/L Total Protein 5.3 L 6.4-8.2 GM/DL Albumin 2.4 L 3.2-4.5 GM/DL Triglycerides Level 59 <150 MG/DL Cholesterol Level 61 < 200 MG/DL LDL Cholesterol Direct 16 1-129 MG/DL VLDL Cholesterol 12 5-40 MG/DL HDL Cholesterol < 15 L 40-60 MG/DL My Orders Orders - SERGIO CARDOSO MD Ed Iv/Invasive Line Start (01/07/22:) Acetaminophen (01/07/22:) Alcohol (01/07/22:) Cbc With Automated Diff (01/07/22:) Comprehensive Metabolic Panel (01/07/22:) Hs C Reactive Protein (01/07/22:) Drug Screen Stat (Urine) (01/07/22:) Magnesium (01/07/22:) Salicylate (01/07/22:) Ua Culture If Indicated (01/07/22:) Naloxone Injection (Narcan Injection) (01/07/22 23:30) Ekg Tracing (01/07/22:23) O2 (01/07/22:) Monitor-Rhythm Ecg Trace Only (01/07/22:23) Naloxone Injection (Narcan Injection) (01/07/22 23:26) Ns Iv 1000 Ml (Sodium Chloride 0.9%) (01/07/22 23:29) Naloxone Injection (Narcan Injection) (01/07/22 23:45) Arterial Blood Gas (01/07/22 23:35) Ns Iv 1000 Ml (Sodium Chloride 0.9%) (01/07/22 23:45) Myoglobin Serum (01/07/22 23:50) Protime With Inr (01/07/22 23:50) Partial Thromboplastin Time (01/07/22 23:50) Lipid Panel (01/08/22 06:00) Bnp [place] (01/07/22 23:50) Fibrin Degradation Products (01/07/22 23:50) Troponin I [place] (01/07/22 23:50) Blood Culture (01/07/22 23:50) Sputum Culture (01/07/22 23:50) Urine Culture (01/07/22 23:50) Vital Signs Adult Sepsis Patie Q15M (01/07/22 23:50) Remove Rings In Anticipation O (01/07/22 23:50) Lactic Acid Analyzer (01/07/22 23:50) Procalcitonin (Pct) (01/07/22 23:50) Ns Iv 1000 Ml (Sodium Chloride 0.9%) (01/08/22 00:00) Covid 19 Inhouse Test (01/07/22 23:52) Influenza A And B By Pcr (01/07/22 23:52) Naloxone Injection (Narcan Injection) (01/08/22 00:00) Chest 1 View, Ap/Pa Only (01/08/22 00:01) Manual Differential (01/07/22 23:30) Ct Head/Cervical Spine Wo (01/08/22 00:30) Ct Chest/Abdomen/Pelvis Wo (01/08/22 00:30) Magnesium 1 Gm/100 Ml Ivpb (Magnesium [place] (01/08/22 00:45) Creatine Kinase (01/08/22 00:32) Cefepime Injection (Maxipime Injection) (01/08/22 01:15) Peña Cath (01/08/22 01:12) Ammonia (01/08/22 01:17) Naloxone Injection (Narcan Injection) (01/08/22 01:45) Ondansetron Injection (Zofran Injectio (01/08/22 02:15) Enoxaparin Injection (Lovenox Injection) (01/08/22 02:45) Naloxone Injection (Narcan Injection) (01/08/22 03:00) Naloxone Injection (Narcan Injection) (01/08/22 02:48) Medications Given in ED Current Medications Medications Dose Ordered Sig/Marta Route Start Time Stop Time Status Last Admin Dose Admin Cefepime HCl 2000 mg/Sodium Chloride 50 ml @ 100 mls/hr ONCE ONCE IV 01/08/22 01:15 01/08/22 01:44 DC 01/08/22 01:19 100 MLS/HR Magnesium Sulfate/ Dextrose 100 ml @ 100 mls/hr ONCE ONCE IV 01/08/22 00:45 01/08/22 01:44 DC 01/08/22 00:58 100 MLS/HR Naloxone HCl 0.4 mg ONCE ONCE IV 01/07/22 23:30 01/07/22 23:31 DC 01/07/22 23:29 0.4 MG Naloxone HCl 0.4 mg STK-MED ONCE .ROUTE 01/07/22 23:26 01/07/22 23:31 DC 01/07/22 23:36 0.4 MG Naloxone HCl 1 mg ONCE ONCE IV 01/08/22 00:00 01/08/22 00:01 DC 01/08/22 00:02 1 MG Naloxone HCl 2 mg ONCE ONCE IV 01/08/22 01:45 01/08/22 01:46 DC 01/08/22 01:44 2 MG Ondansetron HCl 4 mg ONCE ONCE IVP 01/08/22 02:15 01/08/22 02:16 DC 01/08/22 02:26 4 MG Sodium Chloride 1,000 ml @ ud STK-MED ONCE .ROUTE 01/07/22 23:29 01/07/22 23:31 DC 01/07/22 23:34 999 MLS/HR Vital Signs/I&O 01/07/22 01/07/22 01/07/22 01/08/22 23:20 23:20 23:25 02:22 Temp 36.0 Pulse 113 114 Resp 16 25 B/P (MAP) 78/51 (60) Pulse Ox 99 96 100 O2 Delivery OxyMask OxyMask OxyMask O2 Flow Rate 10.00 10.00 100.00 01/08/22 01/08/22 01/08/22 01/08/22 03:00 03:15 03:17 03:25 Temp 36.2 Pulse 106 107 107 Resp 30 19 B/P (MAP) 95/57 89/55 (66) Pulse Ox 100 100 O2 Delivery NIV Bilevel NIV Bilevel NIV Bilevel O2 Flow Rate 100.00 100.00 80.00 01/08/22 01/08/22 01/08/22 01/08/22 03:30 03:45 04:00 04:00 Pulse 106 107 109 Resp 21 20 13 B/P (MAP) 96/58 (71) 103/59 (74) 94/59 (71) Pulse Ox 100 100 98 98 O2 Delivery NIV Bilevel NIV Bilevel NIV Bilevel NIV Bilevel O2 Flow Rate 80.00 80.00 80.00 FiO2 80 01/08/22 01/08/22 05:00 06:00 Pulse 112 111 Resp 14 15 B/P (MAP) 92/63 (73) 93/51 (65) Pulse Ox 94 94 O2 Delivery NIV Bilevel NIV Bilevel O2 Flow Rate 80.00 80.00 01/08/22 00:00 Intake Total 1000 ml Balance 1000 ml Capillary Refill : Less Than 3 Seconds Blood Pressure Mean: 60 Progress Note #1: Time: 02:18 Progress Note Patient was immediately placed on high flow OxyMask and IV fluids were initiated. We were able to resuscitate her blood pressure with 2 L of IV normal saline. Oxygen saturation was borderline on high flow mask. BiPAP was eventually initiated with resuscitation of her oxygen saturations. She did have a modest response to multiple doses of Narcan. She was found to have numerous pathologies in her work-up. She has a massive right-sided pneumonia with a lesser left-sided pneumonia as well. She appears to have sepsis with elevated WBC, CRP, and procalcitonin. She was started on cefepime after blood cultures and lactic acid were obtained. She was profoundly hyponatremic with a sodium of 115. Magnesium was also low. Toxicology screen was negative. I have concerns about the multifactorial nature of her condition. She likely is having significant medication effect with numerous sedating medications including baclofen which has an extraordinarily long half-life. I discussed intubation and CPR with the patient and her brother. Patient initially was opposed to resuscitation efforts. However, after talking with her brother, she requests a full CODE STATUS with hesitation. Because of this position, we will try to avoid intubation. Because there is history of falls, CT from head through pelvis was obtained. No significant injuries were identified. D-dimer is elevated but CT angiogram of the chest is not possible due to her renal function at present. Progress Note #2: Time: 03:02 Progress Note On repeat examination patient was not responding to me by voice. She had no significant response with sternal rub either. An additional dose of Narcan 2 mg was administered. Patient was then responding to voice and opening her eyes on command. However, she was not talking coherently. While patient expressed a strong desire to avoid intubation (which I am trying to respect) she may require intubation if she does not remain alert enough to stay on BiPAP. I discussed the situation with Dr. Best in the eICU. We are going to try a Narcan drip. If we do not have a satisfactory response to the Narcan drip, she will be intubated. ECG Initial ECG Impression Date: Jan 07, 2022 Initial ECG Impression Time: 23:35 Initial ECG Rate: 109 Initial ECG Rhythm: S.Tach Comment Sinus tachycardia with no ST elevation or depression. No abnormal intervals or axis deviation. Diagnostic Imaging Diagonstic Imaging: Xray Plain Films/CT/US/NM/MRI: chest Comments Chest x-ray viewed by me. Report not yet available. There is diffuse pulmonary infiltrate, right greater than left. Diagonstic Imaging: CT Plain Films/CT/US/NM/MRI: c-spine, head Comments CT head and C-spine viewed by me and [facility] report reviewed. No acute bony or intracranial injury identified. Diagonstic Imaging: CT Plain Films/CT/US/NM/MRI: chest, abdomen, pelvis Comments CT chest, abdomen and pelvis viewed by me and [facility] report reviewed. There is bilateral pulmonary infiltrate, right greater than left. No acute traumatic injury identified. Departure Communication (Admissions) Time/Spoke to Admitting Phy: 02:30 Dr. Cline Time/Spoke to Consulting Phy: 02:30 eICU Impression Primary Impression: Septic shock Additional Impressions: Pneumonia Qualified Codes: J18.9 - Pneumonia, unspecified organism Altered mental status Qualified Codes: R41.82 - Altered mental status, unspecified Acute kidney injury Respiratory failure Qualified Codes: J96.01 - Acute respiratory failure with hypoxia Hyponatremia D-dimer, elevated Elevated creatine kinase Polypharmacy Disposition: ADMITTED INPATIENT Condition: Stable Admissions Decision to Admit Reason: Admit from ER (General) Decision to Admit/Date: Jan 08, 2022 Time/Decision to Admit Time: 02:30 Departure-Patient Inst. Referrals: ROBERT CLINE DO (PCP/Family) Primary Care Physician SERGIO CARDOSO MD Jan 08, 2022 01:20
[2022-01-08 01:35] LABS: BILIRUBIN,URINE NEGATIVE (NEGATIVE); CLARITY,URINE CLEAR; COLOR,URINE YELLOW; GLUCOSE, URINE (UA) NEGATIVE (NEGATIVE); KETONES,URINE NEGATIVE (NEGATIVE); LEUKOCYTE ESTERASE ,URINE NEGATIVE (NEGATIVE); NITRITE,URINE NEGATIVE (NEGATIVE); PROTEIN,URINE TRACE (NEGATIVE)
[2022-01-08] MEDS ORDERED: NALOXONE 2 MG/2 ML (NARCAN) SYR IV ONE ×3 (01:45→03:00)
[2022-01-08 01:48] LABS: AMPHETAMINE SCREEN, URINE NEGATIVE (NEGATIVE); BARBITURATE SCREEN URINE NEGATIVE (NEGATIVE); BENZODIAZEPINES SCREEN URINE NEGATIVE (NEGATIVE); CANNABINOID SCREEN, URINE POSITIVE (NEGATIVE); COCAINE SCREEN URINE NEGATIVE (NEGATIVE); METHADONE STAT NEGATIVE (NEGATIVE); OPIATE SCREEN URINE POSITIVE (NEGATIVE); OXYCODONE STAT NEGATIVE (NEGATIVE); PROPOXYPHENE STAT NEGATIVE (NEGATIVE); TRICYCLIC ANTIDEPRESSANTS SCRE POSITIVE (NEGATIVE)
[2022-01-08 01:52] LABS: BACTERIA,URINE FEW /HPF; HYALINE CASTS, URINE 0-2 /LPF; SQUAMOUS EPITHELIAL CELL,UR RARE /HPF; WBC,URINE 0-2 /HPF
[2022-01-08] MEDS ORDERED: ONDANSETRON 4 MG/2 ML (SDV) Z0FRAN IVP ONE (02:15)
[2022-01-08 02:22] VITALS: BP 90/55
[2022-01-08] MEDS ORDERED: ENOXAPARIN 60 MG/0.6 ML (LOVENOX) SYR SC ONE (02:45)
[2022-01-08] MEDS ORDERED: NALOXONE 2 MG/2 ML (NARCAN) SYR ONE (02:48)
[2022-01-08] MEDS ORDERED: NS IV 500 ML 500 ML IV PRN (03:15)
[2022-01-08] MEDS ORDERED: CATHETER FLUSH 10 ML SYR IVP PRN (03:30)
[2022-01-08 03:38] LABS: BASOPHILS # (AUTO) 0.1 10^3/uL (0.0-0.1); BASOPHILS % (AUTO) 1 % (0-10); EOSINOPHILS # (AUTO) 0.1 10^3/uL (0.0-0.3); EOSINOPHILS % (AUTO) 1 % (0-10); HEMATOCRIT 29 % (35-52); HEMOGLOBIN 10.4 g/dL (11.5-16.0); LYMPHOCYTES # (AUTO) 0.5 10^3/uL (1.0-4.0); LYMPHOCYTES % (AUTO) 3 % (12-44); MEAN CORPUSCULAR HEMOGLOBIN 30 pg (25-34); MEAN CORPUSCULAR HGB CONC 36 g/dL (32-36); MEAN CORPUSCULAR VOLUME 85 fL (80-99); MEAN PLATELET VOLUME 9.4 fL (9.0-12.2); MONOCYTES # (AUTO) 1.4 10^3/uL (0.0-1.0); MONOCYTES % (AUTO) 8 % (0-12); NEUTROPHILS # (AUTO) 15.1 10^3/uL (1.8-7.8); NEUTROPHILS % (AUTO) 86 % (42-75); PLATELET COUNT 179 10^3/uL (130-400); WHITE BLOOD COUNT 17.6 10^3/uL (4.3-11.0)
[2022-01-08] MEDS ORDERED: EPINEPHrine 1 MG INJECTION 4 MG in NS (IVPB) 248 ML IV SCH (03:45)
[2022-01-08 03:48] LABS: POTASSIUM 4.3 MMOL/L (3.6-5.0)
[2022-01-08 03:49] LABS: CALCIUM 7.5 MG/DL (8.5-10.1)
[2022-01-08] MEDS: NALOXONE INJECTION 0.4 MG in NS (IVPB) 99 ML IV PRN ×2 (03:49→09:41)
[2022-01-08 03:54] LABS: CREATININE SERUM 1.35 MG/DL (0.60-1.30)
[2022-01-08 04:03] LABS: TRIGLYCERIDES 59 MG/DL (<150); VLDL CHOLESTEROL 12 MG/DL (5-40)
[2022-01-08 04:08] LABS: CHOLESTEROL 61 MG/DL (< 200)
[2022-01-08 04:09] LABS: HDL CHOLESTEROL < 15 MG/DL (40-60)
[2022-01-08] MEDS: NS IV 1000 ML 1,000 ML IV SCH ×3 (04:09→18:16)
[2022-01-08 04:12] LABS: ALBUMIN 2.4 GM/DL (3.2-4.5)
[2022-01-08 04:15] LABS: TOTAL PROTEIN 5.3 GM/DL (6.4-8.2)
[2022-01-08 04:17] LABS: BILIRUBIN,TOTAL 0.5 MG/DL (0.1-1.0)
[2022-01-08 04:21] LABS: BILIRUBIN,DIRECT 0.2 MG/DL (0.0-0.3); BILIRUBIN,INDIRECT 0.3 MG/DL
--- NOTE | 2022-01-08 04:22 | Tele-ICU Progress Note ---
Progress Note 61F with chronic pain admitted with lethargy, hypoxia, hypotension and AMS. Seen in ED earlier in the day for fall that occured a couple days ago, c/o dizziness since the fall. CT was negative. Noted to take percocet, clonazepam, gabapentin and seroquel for back pain and for sleep. Found somnolent, responsive to voice by . SpO2 in the 60s, SBP in the 70s. Patient received 2L IVF, oxymask and then bipap. Had moderate response to narcan, but required multiple doses. Most recent just prior to transfer. On arrival to ICU, arousable and interactive, falls asleep quickly. - hyponatremia: found to have Na 110. Received 2L NS bolus in ED for hypotension. Repeat Na on arrival to ICU still 115. OK to proceed with NS at 250 as ordered. Q4h BMP ordered. Probably cause of recent dizziness, possibly even the cause of the fall a couple days ago. - AMS: secondary to overdose vs hyponatremia. No known change in medication. Percocet overdose unlikely with negative APAP levels. Narcan may be having partial effect for other medications. Regardless of reason, appears clinically effective. Narcan gtt initiated. Currently protecting airway, but may progress to intubation. - sepsis: cultures pending, cefepime initiated. Extensive pneumonia on imaging. Given combination of pneumonia and hyponatremia, will check urine legionella and cover empirically with doxy. - metabolic acidosis: compensated, anion gap 12. Lactic 1.8. Unclear etiology. Will monitor on serial BMPs. - JULIAN: already improving with IVF. Baseline 0.6, 1.9 on arrival and 1.35 on repeat. IVF ongoing, monitor on serial BMPs. Focused Exam Lactate Level 01/07/22 23:30: Lactic Acid Level 1.86 Height, Weight, BMI Height: 5'5.00" Weight: 129lbs. 4.0oz. 58.347465ca; 22.42 BMI Method: Time of Focused Exam: 214 MONTSE MANSFIELD MD Jan 08, 2022 04:22
[2022-01-08] MEDS ORDERED: ETOMIDATE IV SOLN 20 MG/10 ML VIAL IV ONE (07:00)
[2022-01-08] MEDS: VASOPRESSIN INJECTION 20 UNIT in NS (IVPB) 100 ML IV SCH ×2 (07:00→15:00)
[2022-01-08] MEDS: KCL 20 MEQ TAB (K-DUR) PO SCH (07:00)
[2022-01-08] MEDS: POTASSIUM CL 10MEQ/50ML IVPB 50 ML IV SCH ×5 (07:00→20:39)
[2022-01-08] MEDS: MAGNESIUM 1 GM/100 ML IVPB 100 ML IV SCH ×3 (07:00→08:25)
[2022-01-08] MEDS: NOREPINEPHRINE 8 MG/250 ML 250 ML IV SCH ×2 (07:00→20:47)
[2022-01-08] MEDS ORDERED: SUCCINYLCHOLINE INJ 100 MG/5 ML SYR/VIAL INJ ONE (07:00)
[2022-01-08] MEDS ORDERED: MIDAZOLAM 5 MG/5 ML (VERSED) VIAL IVP ONE (07:00)
[2022-01-08] MEDS: DOXYCYCLINE INJECTION 100 MG in NS (IVPB) 100 ML IV SCH ×2 (07:04→18:19)
--- NOTE | 2022-01-08 07:20 | Diagnostic Imaging Report ---
Clinical indications: Patient with altered mental status and shortness of air. Exam: Head CT without IV contrast with sagittal and coronal reformations. Axial CT scan of the cervical spine with sagittal and coronal reformations. Auto Exposure Controls were utilized during the CT exam to meet ALARA standards for radiation dose reduction. Comparison: Head CT without contrast dated 01/07/2022. Findings: Head CT: There is no evidence of acute cerebral infarct, intracranial hemorrhage, or gross mass effect. The brain parenchymal volume appears appropriate for patient's age. There is normal munguia-white matter distinction. There is no significant midline shift or herniation. There is no evidence of hydrocephalus. The basal cisterns are unremarkable. The skull, extracranial soft tissue, and orbits are unremarkable. The paranasal sinuses are unremarkable. Temporal bones show no significant abnormality. Cervical spine: No acute cervical spine fracture or dislocation. There is reversal of cervical lordosis.. There are hypertrophic spurs involving the cervical spine and facet arthropathy. There is no significant neck soft tissue abnormality. There is consolidation involving the posterior aspect right upper lobe and a small amount of patchy consolidation involving left upper lobe. Interlobular septal thickening is noted involving both upper lung ruiz. Impression: 1: There is no evidence of acute intracranial process. There is no skull fracture. 2: There is cervical spine degenerative disease with no acute fracture or dislocation. 3: There is consolidation involving both upper lobes with the right lung more than left. There is also interlobular septal thickening seen. Chest CT scan would help better evaluate. I agree with Stat rad report. Dictated by: Dictated on workstation # [id number]
--- NOTE | 2022-01-08 07:38 | Diagnostic Imaging Report ---
CLINICAL INDICATIONS: Patient with altered mental status, shortness of air and trauma. EXAM: Axial CT scan of the chest, abdomen and pelvis performed without IV contrast. Sagittal and coronal reformatted images are created. Auto Exposure Controls were utilized during the CT exam to meet ALARA standards for radiation dose reduction. COMPARISON: CT scan of the abdomen and pelvis with contrast dated 05/27/2021. FINDINGS: CHEST: There is a large amount of patchy and confluent consolidation throughout most of the right lower lobe and involving a significant amount of the right upper lobe and middle lobe regions. There is a small amount of patchy infiltrate involving the posterior aspect of the left upper lobe. Interlobular septal thickening is seen involving the upper lung ruiz. There is a small right pleural effusion. There is no pneumothorax. There appears to be prominent mediastinal lymph nodes, but is difficult to accurately measure due to no IV contrast administered. There are degenerative spurs involving the thoracic spine. There is no fracture seen. CT abdomen and pelvis: Gallbladder is moderately distended. There are no stones seen. There is no gallbladder wall thickening or pericholecystic fluid. The liver, spleen, pancreas, and adrenal glands unremarkable as visualized. Both kidneys are unremarkable. No hydronephrosis, stone, or mass. There is no intra-abdominal free air or free fluid. There is no intestinal obstruction. There is large amounts of stool within the right colon and proximal to mid transverse colon. There is no significant lymphadenopathy seen. The bladder is fluid-filled and otherwise unremarkable. The extra abdominal and extrapelvic soft tissue structures are unremarkable. There is a diffuse disk bulge at the L4-L5 level with severe loss of disk space height, endplate sclerosis and Schmorl's nodes. IMPRESSION: 1: There is large amounts of confluent and patchy consolidation throughout most of the right lung. There is mild airspace infiltrate involving the posterior left upper lobe. There is interlobular septal thickening seen. These findings are concerning for pneumonia. There is also concern for mediastinal lymphadenopathy. There is a small right pleural effusion. 2: There is no evidence of acute process involving the abdomen and pelvis. I agree with Stat rad report. Dictated by: Dictated on workstation # [id number]
[2022-01-08 08:03] VITALS: BP 95/83
--- NOTE | 2022-01-08 08:04 | Diagnostic Imaging Report ---
CHEST 1 VIEW, AP/PA ONLY Indication: Hypoxia Comparison: 06/22/2016 Findings: Extensive consolidations throughout the right lung. There are patchy perihilar consolidations on the left. No pleural effusion or pneumothorax. Normal cardiomediastinal silhouette. Impression: 1. Right lung consolidations may be due to extensive pneumonia or asymmetric pulmonary edema. Follow-up CT chest was performed for further evaluation. Dictated by: Dictated on workstation # [id number]
--- NOTE | 2022-01-08 08:10 | History & Physical ---
PRESTON MAI 01/08/22 0810: History of Present Illness History of Present Illness Reason for visit/HPI 61 year old female with past medical history of anxiety, depression, and chronic pain presented to ER late last night (01-07-2022) for letheragy, hypoxia, and hypotension. She was in the ER prior yesterday for a recent fall, at that time she was alert and ambulatory. She was sent home from the earlier visit stable, with her head CT negative. She returned to the ER last night by her brother after he checked on her after receiving some concerning texts from her. Upon his arrival to her house she was found to have O2 sat of 60s and systolic BP in the 70s. He then took her to the ER where she was found to have AMS and hypotension, and possible sepsis. She was somnolent in the ER but responded to voice, she was given Narcan which helped improve her responsiveness. Her imaging showed diffused pneumonia in both lungs and was started on Cefepime. Her imaging from head to hip where negative for fracture. She was started on BiPAP to help maintain O2 sat. Her D-Dimer was elevatetd at 3.[address] angiogram was not preformed for concern of her kidney function. EKG showed no ST elevation or depression. Toxicology screen was positive for cannabis, opioids, and tricyclics. COVID was negative. Blood cultures were drawn in ER, awaiting results. Patient was also found to be hyponatermic at 115, along with a elevated creatinine. She was treated by ICU Tele-health for possible legionella pneumonia and started on Doxycycline. As of this morning (01-08-2022) she is still somnolent and difficult to arouse. She is unable to converse, but does awake to voice but immediately returns to sleep. She is currently on Narcan drip. Per ICU nurse she was A&O X3 around 4 A.M, but has slowly become unresponsive this morning. Spoke with her brother this morning and he said they had dinner on Tuesday and she had a mild cough. He said gradually throughout the week her texts became scrambled and non comprehensive, thus the reason he went over to check on her. Date of Admission Jan 08, 2022 at 02:41 Date Seen by a Provider: Jan 08, 2022 Time Seen by a Provider: 09:26 I consulted on this patient on 01/08/22 07:59 Attending Physician Robert Cline DO Admitting Physician Admitting Physician: Robert Cline DO Attending Physician: Robert Cline DO Consult Allergies and Home Medications Allergies Coded Allergies: No Known Drug Allergies (Unverified , 04/01/11) Patient Home Medication List Albuterol Sulfate (Proair Hfa) 1 Puff Puff, 2 PUFF IH Q4H PRN for SHORTNESS OF BREATH, (Reported) Entered as Reported by: TAY ARIAS on 05/28/21 09 Biotin (Biotin) 2,500 Mcg Capsule, 2,500 MCG PO DAILY, (Reported) Entered as Reported by: TAY ARIAS on 05/28/21935 Calcium Carbonate (Calcium) 600 Mg Tablet, 600 MG PO DAILY, (Reported) Entered as Reported by: TAY ARIAS on 05/28/21935 Cholecalciferol (Vitamin D3) (Vitamin D3) 50 Mcg Capsule, 50 MCG PO DAILY, (Reported) Entered as Reported by: TAY ARIAS on 05/28/21935 Clonazepam (Clonazepam) 0.5 Mg Tablet, 0.25 MG PO TID, (Reported) Entered as Reported by: ALFONZO ISIDRO on 05/27/21 1641 Cyanocobalamin (Vitamin B-12) (Vitamin B-12) 1,000 Mcg Tablet, 1,000 MCG PO DAILY, (Reported) Entered as Reported by: TAY ARIAS on 05/28/21 09 Docusate Sodium (Colace) 100 Mg Capsule, 100 MG PO BID Prescribed by: ROBERT CLINE on 05/28/21 1150 Gabapentin (Gabapentin) 600 Mg Tablet, 600 MG PO TID, (Reported) Entered as Reported by: TAY ARIAS on 05/28/21 09 Hydrocodone/Acetaminophen (Hydrocodone-Acetamin 10-325 mg) 1 Each Tablet, 1 EACH PO QID PRN for PAIN-MODERATE (5-7), (Reported) Entered as Reported by: TAY ARIAS on 05/28/21 09 Melatonin (Melatonin) 3 Mg Tablet, 3 MG PO HS, (Reported) Entered as Reported by: TAY ARIAS on 05/28/21935 Multivitamin (Multivitamins) 1 Each Tablet, 1 EACH PO DAILY, (Reported) Entered as Reported by: BHUPENDRA PARKS on 06/22/16 1321 Pravastatin Sodium (Pravastatin Sodium) 40 Mg Tablet, 40 MG PO HS, (Reported) Entered as Reported by: BHUPENDRA PARKS on 06/22/16 1321 Quetiapine Fumarate (Quetiapine Fumarate ER) 50 Mg Tab.er.24h, 100 MG PO HS, (Reported) Entered as Reported by: ALFONZO ISIDRO on 05/27/21 1641 Vortioxetine Hydrobromide (Trintellix) 20 Mg Tablet, 20 MG PO DAILY, (Reported) Entered as Reported by: TAY ARIAS on 05/28/21 0936 Past Oliwlhc-Fbzigu-Twlcfj Hx Patient Social History Tobacco Use?: Yes Tobacco type used: Cigarettes Smoking Status: Unknown if Ever Smoked Substance use?: Yes Substance type: Opiates/Opioids, Marijuana Alcohol Use?: No Pt feels they are or have been: Unable to obtain Immunizations Up To Date Date of Influenza Vaccine: Nov 27, 2020 First/Initial COVID19 Vaccinat: 04/05/20 Second COVID19 Vaccination Sergey: 04/25/20 Tetanus Booster (TDap): Unknown Seasonal Allergies Seasonal Allergies: No Current Status status: No Advance Directives: Unable to obtain Communicates: Verbally Primary Language: Thai Preferred Spoken Language: Thai Is interpretation needed?: No Past Medical History Surgeries: Appendectomy, Hysterectomy [employer]SEM[employer] History: Hysterectomy Chronic Back Pain Anxiety, Depression Family Medical History Alcoholism G8 BROTHER Asthma G8 BROTHER Drug abuse G8 BROTHER Kidney disease G8 BROTHER Psychosocial problem G8 BROTHER G8 SISTER Thyroid disease 19 MOTHER Review of Systems Constitutional: diaphoresis, malaise, weakness EENTM: No hearing loss Respiratory: No cough, No stridor Cardiovascular: No chest pain, No palpitations Gastrointestinal: No abdominal pain Musculoskeletal: No muscle stiffness, No muscle cramps Skin: No change in color, No dryness Physical Exam Vital Signs Vital Signs - First Documented 01/07/22 01/08/22 23:20 04:00 Temp 36.0 Pulse 113 Resp 16 B/P (MAP) 78/51 (60) Pulse Ox 99 O2 Delivery OxyMask O2 Flow Rate 10.00 FiO2 80 Capillary Refill : Less Than 3 Seconds Height, Weight, BMI Height: 5'5.00" Weight: 129lbs. 4.0oz. 58.631133co; 22.42 BMI Method: General Appearance: Chronically ill, Severe Distress Neck: Non Tender, Supple Respiratory: Chest Non Tender; No No Accessory Muscle Use; Respiratory Distress Cardiovascular: No No Edema, No No Gallop, No No Murmur Gastrointestinal: Non Tender, Soft Rectal: Deferred Extremity: No Pedal Edema Neurologic/Psychiatric: No Alert, No Oriented x3; Disoriented Skin: Normal Color, Diaphoresis Lymphatic: No Adenopathy Assessment/Plan Assessment and Plan Bilateral Pneumonia- Awaiting Blood Cultures Started on Cefepime and Doxycycline Continue Supportive Care Acute Respiratory Failure- Started on BiPAP Manage Pneumonia Monitor O2- consider intubation AMS-Possible secondary to Polypharmacy Review medication list Start Narcan Drip Septic Shock- Antibiotics started Continue fluids started Pressers administered JULIAN- Creatinine Currently 1.35 Continue IV fluids Hyponatremia- Continue IV fluids Consider replacement Hypoalbuminemia- Currently NPO but will supplement when able Elevated Creatine Kinase Continue IV fluids Dyspepsia/GERD Start pantoprazole BID ROBERT CLINE DO 01/08/22 1229: Allergies and Home Medications Allergies Coded Allergies: No Known Drug Allergies (Unverified , 04/01/11) Patient Home Medication List Home Medication List Reviewed: Yes Albuterol Sulfate (Proair Hfa) 1 Puff Puff, 2 PUFF IH Q4H PRN for SHORTNESS OF BREATH, (Reported) Entered as Reported by: TAY ARIAS on 05/28/21935 Biotin (Biotin) 2,500 Mcg Capsule, 2,500 MCG PO DAILY, (Reported) Entered as Reported by: TAY ARIAS on 05/28/21935 Calcium Carbonate (Calcium) 600 Mg Tablet, 600 MG PO DAILY, (Reported) Entered as Reported by: TAY ARIAS on 05/28/21935 Cholecalciferol (Vitamin D3) (Vitamin D3) 50 Mcg Capsule, 50 MCG PO DAILY, (Reported) Entered as Reported by: TAY ARIAS on 05/28/21935 Clonazepam (Clonazepam) 0.5 Mg Tablet, 0.25 MG PO TID, (Reported) Entered as Reported by: ALFONZO ISIDRO on 05/27/21 1641 Cyanocobalamin (Vitamin B-12) (Vitamin B-12) 1,000 Mcg Tablet, 1,000 MCG PO DAILY, (Reported) Entered as Reported by: TAY ARIAS on 05/28/21 0937 Docusate Sodium (Colace) 100 Mg Capsule, 100 MG PO BID Prescribed by: ROBERT CLINE on 05/28/21 1150 Gabapentin (Gabapentin) 600 Mg Tablet, 600 MG PO TID, (Reported) Entered as Reported by: TAY ARIAS on 05/28/21 0937 Hydrocodone/Acetaminophen (Hydrocodone-Acetamin 10-325 mg) 1 Each Tablet, 1 EACH PO QID PRN for PAIN-MODERATE (5-7), (Reported) Entered as Reported by: TAY ARIAS on 05/28/21 0937 Melatonin (Melatonin) 3 Mg Tablet, 3 MG PO HS, (Reported) Entered as Reported by: TAY ARIAS on 05/28/21 0936 Multivitamin (Multivitamins) 1 Each Tablet, 1 EACH PO DAILY, (Reported) Entered as Reported by: BHUPENDRA PARKS on 06/22/16 1321 Pravastatin Sodium (Pravastatin Sodium) 40 Mg Tablet, 40 MG PO HS, (Reported) Entered as Reported by: BHUPENDRA PARKS on 06/22/16 1321 Quetiapine Fumarate (Quetiapine Fumarate ER) 50 Mg Tab.er.24h, 100 MG PO HS, (Reported) Entered as Reported by: ALFONZO ISIDRO on 05/27/21 1641 Vortioxetine Hydrobromide (Trintellix) 20 Mg Tablet, 20 MG PO DAILY, (Reported) Entered as Reported by: TAY ARIAS on 05/28/21 0936 Past Ithwpig-Hcnasc-Btwecc Hx Family Medical History Alcoholism G8 BROTHER Asthma G8 BROTHER Drug abuse G8 BROTHER Kidney disease G8 BROTHER Psychosocial problem G8 BROTHER G8 SISTER Thyroid disease 19 MOTHER Assessment/Plan Admission Diagnosis Admission Status: Inpatient Order (span 2 midnights) Reason for Inpatient Admission: Will need ICU admission Supervisory-Addendum Brief Verification & Attestation Participated in pt care: history, physical Personally performed: exam, history, supervision of care Care discussed with: Medical Student Procedures: n/a Results interpretation: Verified all documentation Patient seen and assessed and discussed care with brother who was at her bedside. She is lethargic on BiPAP. Will continue BiPAP, IV antibiotics, IVFS and pressors, lovenox for DVT prophylaxis, add protonix for GI prophylaxis. PRESTON MAI Jan 08, 2022 08:10 ROBERT CLINE DO Jan 08, 2022 12:29
[2022-01-08 08:25] LABS: POTASSIUM 4.2 MMOL/L (3.6-5.0)
[2022-01-08 08:27] LABS: CALCIUM 7.8 MG/DL (8.5-10.1)
[2022-01-08] MEDS ORDERED: PANTOPRAZOLE 40 MG (PROTONIX) VIAL IV NR (09:30)
--- NOTE | 2022-01-08 09:57 | Tele-ICU Progress Note ---
Progress Note Follow up on TELE-ICU consult done last night Acute resp failure - with PNA - on BIPAP 12/30 80% 20 - 450 - minV 8L - ddimer elev to 3 -but hypoxia is most likely due to large PNA Encephalopaty ( secondary to overdose vs hyponatremia. - CTH neg - Had moderate response to narcan, started on GTT ( percocet, clonazepam, gabapentin and seroquel for back pain and for sleep - LESS RESPONSIVE NOW DESPITE INCREAED NARCAN - WILL CHECK ABG Hyponatremia 9 ? SAIDH with PNA -- Na 115 on presentation -. Received 2L NS bolus in ED for hypotension - NA 118 now - follow - goal by 11 pm 01/08 not higher then 123 Multilobar Right>>>L PNA -(CAP -cultures pending, cefepime initiated.- doxy added for possible legiobella Sepsis - received >2 NS Mild coagulopath y - INR 1.6 follow JULIAN- RESOLVED - improving with IVF s/p fall 01/07 - station operator sacans in ER neg --> d/c home Lines : , (Central Line Necessity Reviewed) Peña: OG: Nutrition: Analgesia: Anxiety/ delirium VTE Prophylaxis: 1.6 iNR - SCD , follow Stress Ulcer Prophylaxis: Plans in collaboration with bedside consultants and IM MDs. Discussed with RN to reach out if any questions or concerns additional total of 25 minutes of critical care time was devoted to this patient today, required to treat and/or prevent further deterioration of critical care condition ( as above ) . I am remotely monitoring this patient from another state. I am unable to do the bedside exam, and history/physical and pertinent information is taken from other notes in the computer and bedside staff. I cannot take responsibility for the accuracy of this information. Focused Exam Lactate Level 01/07/22 23:30: Lactic Acid Level 1.86 Height, Weight, BMI Height: 5'5.00" Weight: 129lbs. 4.0oz. 58.220274wm; 22.42 BMI Method: Time of Focused Exam: 214 LOLIS KUMAR MD Jan 08, 2022 09:57
[2022-01-08 10:34] LABS: ABG BASE EXCESS -4.5 MMOL/L (-2.5-2.5); ABG OXYGEN SATURATION 82 % (94-100); ABG PCO2 70 MMHG (35-45); ABG PO2 57 MMHG (79-93); ABG TCO2 25.6 MMOL/L (21.0-31.0)
[2022-01-08 10:36] LABS: ABG PH 7.14 (7.37-7.43); INSPIRED O2 80% BIPAP; PATIENT TEMP 36.4; VENTILATOR NO
[2022-01-08] MEDS ORDERED: NS IV 1000 ML 500 ML IV SCH (11:30)
[2022-01-08] MEDS ORDERED: SODIUM BICARB 8.4% 50 MEQ/50 ML (ABBOTT) SYR IV NR (11:30)
[2022-01-08] MEDS ORDERED: fentaNYL INJ 100 MCG/2 ML AMP IVP PRN (11:30)
[2022-01-08 11:34] VITALS: BP 65/43
--- NOTE | 2022-01-08 11:35 | Diagnostic Imaging Report ---
INDICATION: Respiratory failure. Status post intubation. COMPARISON: Earlier same day FINDINGS: Single frontal radiograph view the chest was obtained and now demonstrates indwelling endotracheal tube with tip below the clavicular heads and above the tatiana. Cardiac silhouette and pulmonary vasculature stable. Lungs continue to show diffuse coarse prominence of the interstitium with more scattered and focal alveolar consolidations of the right lung. Overall, aeration is largely unchanged when compared to earlier same day. Small effusion may be obscured on the right. There is no large effusion on the left. No pneumothorax is seen on either side. IMPRESSION: 1. Indwelling endotracheal tube as above. 2. Otherwise, stable bilateral infiltrate, right greater than left. Dictated by: Dictated on workstation # [id number]
--- NOTE | 2022-01-08 11:54 | Physical Therapy Progress Note ---
Therapy Progress Note Patient currently intubated and sedated. PT will continue to monitor patient status and initiate treatment when patient is medically stable and able to actively participate with skilled therapy. JUAN ALBERTO PAZ PT Jan 08, 2022 11:54
[2022-01-08 11:58] LABS: ABG BASE EXCESS -5.3 MMOL/L (-2.5-2.5); ABG OXYGEN SATURATION 96 % (94-100); ABG PCO2 56 MMHG (35-45); ABG PO2 78 MMHG (79-93); ABG TCO2 23.4 MMOL/L (21.0-31.0)
[2022-01-08 11:59] LABS: INSPIRED O2 100%; PATIENT TEMP 36.4; VENTILATOR YES
[2022-01-08] MEDS ORDERED: NS IV 1000 ML 1,000 ML IV SCH ×2 (12:00)
[2022-01-08] MEDS: CATHETER FLUSH 10 ML SYR IVP SCH ×2 (12:10→20:36)
--- NOTE | 2022-01-08 12:53 | Occ Therapy Progress Note ---
Therapy Progress Note OT orders received and chart reviewed. Pt is currently intubated/sedated. OT will continue to monitor pt and initiate tx when pt is more medically stable and able to actively participate in skilled therapy. ESTEVAN HUNT OT Jan 08, 2022 12:53
[2022-01-08 13:16] LABS: CALCIUM 7.1 MG/DL (8.5-10.1)
[2022-01-08 13:21] LABS: CREATININE SERUM 0.81 MG/DL (0.60-1.30)
[2022-01-08] MEDS ORDERED: 1/2 NS IV SOLUTION 1,000 ML IV SCH (13:45)
[2022-01-08] MEDS: DexMEDEtomidine 250 ML DRIP 250 ML IV SCH (13:46)
[2022-01-08 14:32] VITALS: BP 85/51
[2022-01-08] MEDS ORDERED: AMIT50TA3 PO (15:16)
[2022-01-08] MEDS ORDERED: PANT40TA52 PO (15:16)
[2022-01-08] MEDS ORDERED: ONDA4TAB11 PO (15:16)
[2022-01-08] MEDS ORDERED: QUET50TA23 PO (15:16)
[2022-01-08] MEDS ORDERED: QUET300T71 PO (15:16)
[2022-01-08] MEDS ORDERED: BUSP30TA2 PO ×2 (15:16)
[2022-01-08] MEDS ORDERED: MULT-10 PO (15:17)
[2022-01-08] MEDS ORDERED: CYCL10TA25 PO (15:22)
[2022-01-08 17:07] LABS: POTASSIUM 3.1 MMOL/L (3.6-5.0)
[2022-01-08 17:12] LABS: CREATININE SERUM 0.6 MG/DL (0.60-1.30)
[2022-01-08 17:14] LABS: CALCIUM 5.7 MG/DL (8.5-10.1)
[2022-01-08] MEDS ORDERED: DEXTROSE 50% 50 ML (IMS) SYR IV NR (17:30)
[2022-01-08] MEDS ORDERED: ALBUMIN IV ONE (17:45)
[2022-01-08] MEDS ORDERED: CEFEPIME INJECTION 1,000 MG in NS (IVPB) 50 ML IV SCH (18:00)
[2022-01-08] MEDS ORDERED: CALC GLUC 1 GM/100 ML IVPB 100 ML IV ONE ×2 (18:00→19:38)
[2022-01-08] MEDS: CEFEPIME INJECTION 1,000 MG in NS (IVPB) 50 ML IV SCH (18:19)
[2022-01-08 18:36] VITALS: BP 101/65
--- NOTE | 2022-01-08 18:55 | Anesthesia-Procedure Note ---
Procedures/Interventions Procedure Start/Stop/Diagnosis Date of Procedure: Jan 08, 2022 Start Time: 11:02 Referring Physician: EICU Preprocedural Diagnosis: respiratory failure Brief History Called to ICU 8 regarding patient who needed intubated. Patient on a narcan gtt. VS stable, however blood pressure soft. I originally was going to give 2mg Versed and Succs since patient wasnt very responsible; however, prior to intubation, she started coughing and more arousable, thus I gave 100mg Etomidate as well. Intubated easily with 7.5 ett. RT at bedside to secure tube and place patient on vent. Reported off to Arabella Coffey RN. Stop Time: 11:15 Intubation Reason Intubation/Diagnosis: resp failure RSI: Yes 100% pre-Ox, [id number]: Yes Intubation Method: orotracheal Videoscope used: Yes (Diaz x blade) Grade View: 1 Medications: Etomidate (10mg), Succinylcholine (100mg), Versed (2mg) Mask Ventilation: negative Positive End Tide CO2: Yes Breath Sounds after Intubation: bilateral-equal ETT Securred @ (cm): 23 Intubated with ease: Yes Intubation Complications: no complications Post Intubation Xray-done: Yes Care turned over to: SHUBHAM Estevez SHANNA R CRNA Jan 08, 2022 18:55
[2022-01-08] MEDS: PANTOPRAZOLE 40 MG (PROTONIX) VIAL IV SCH (20:35)
[2022-01-08 21:16] LABS: CALCIUM 8.1 MG/DL (8.5-10.1); CREATININE SERUM 0.77 MG/DL (0.60-1.30); POTASSIUM 4.6 MMOL/L (3.6-5.0)
[2022-01-08 22:41] VITALS: BP 104/60
[2022-01-08] MEDS: RT-ALBUTEROL/IPRATROPIUM 3 ML (DUONEB) VIAL INH SCH (22:41)
[2022-01-09] MEDS: CEFEPIME INJECTION 1,000 MG in NS (IVPB) 50 ML IV SCH ×4 (00:13→18:01)
[2022-01-09 00:31] LABS: ABG BASE EXCESS -4.6 MMOL/L (-2.5-2.5); ABG OXYGEN SATURATION 97 % (94-100); ABG PCO2 46 MMHG (35-45); ABG PO2 83 MMHG (79-93); ABG TCO2 22.3 MMOL/L (21.0-31.0)
[2022-01-09 00:32] LABS: ALLENS TEST YES-POS; INSPIRED O2 70%; VENTILATOR NO
[2022-01-09 00:33] LABS: ABG PH 7.29 (7.37-7.43)
[2022-01-09] MEDS: VASOPRESSIN INJECTION 20 UNIT in NS (IVPB) 100 ML IV SCH ×2 (01:44→14:49)
[2022-01-09 02:11] VITALS: BP 119/65
[2022-01-09] MEDS: RT-ALBUTEROL/IPRATROPIUM 3 ML (DUONEB) VIAL INH SCH ×4 (02:11→19:05)
[2022-01-09] MEDS: NS IV 1000 ML 1,000 ML IV SCH ×2 (03:46→15:10)
[2022-01-09 03:48] LABS: BASOPHILS # (AUTO) 0.2 10^3/uL (0.0-0.1); BASOPHILS % (AUTO) 1 % (0-10); EOSINOPHILS % (AUTO) 0 % (0-10); HEMATOCRIT 27 % (35-52); HEMOGLOBIN 9.3 g/dL (11.5-16.0); LYMPHOCYTES # (AUTO) 0.6 10^3/uL (1.0-4.0); LYMPHOCYTES % (AUTO) 3 % (12-44); MEAN CORPUSCULAR HEMOGLOBIN 30 pg (25-34); MEAN CORPUSCULAR HGB CONC 35 g/dL (32-36); MEAN CORPUSCULAR VOLUME 86 fL (80-99); MEAN PLATELET VOLUME 8.8 fL (9.0-12.2); MONOCYTES # (AUTO) 1.9 10^3/uL (0.0-1.0); MONOCYTES % (AUTO) 10 % (0-12); NEUTROPHILS # (AUTO) 16.7 10^3/uL (1.8-7.8); NEUTROPHILS % (AUTO) 85 % (42-75); PLATELET COUNT 209 10^3/uL (130-400); WHITE BLOOD COUNT 19.7 10^3/uL (4.3-11.0)
[2022-01-09 03:58] LABS: ALBUMIN 2.9 GM/DL (3.2-4.5)
[2022-01-09 03:59] LABS: CALCIUM 8.3 MG/DL (8.5-10.1)
[2022-01-09 04:01] LABS: TOTAL PROTEIN 5.3 GM/DL (6.4-8.2)
[2022-01-09 04:02] LABS: BILIRUBIN,TOTAL 0.5 MG/DL (0.1-1.0)
[2022-01-09 04:04] LABS: CREATININE SERUM 0.7 MG/DL (0.60-1.30); PHOSPHORUS 2.4 MG/DL (2.3-4.7)
[2022-01-09 04:06] LABS: BILIRUBIN,DIRECT 0.5 MG/DL (0.0-0.3)
[2022-01-09] MEDS: KCL 20 MEQ TAB (K-DUR) PO SCH (06:05)
[2022-01-09] MEDS: POTASSIUM CL 10MEQ/50ML IVPB 50 ML IV SCH ×5 (06:05→17:57)
[2022-01-09] MEDS: MAGNESIUM 1 GM/100 ML IVPB 100 ML IV SCH (06:05)
[2022-01-09] MEDS: DOXYCYCLINE INJECTION 100 MG in NS (IVPB) 100 ML IV SCH (06:12)
[2022-01-09] MEDS: CATHETER FLUSH 10 ML SYR IVP SCH ×3 (06:14→20:08)
[2022-01-09 07:06] VITALS: BP 113/65
--- NOTE | 2022-01-09 08:05 | Diagnostic Imaging Report ---
EXAMINATION: Chest, 1 view. HISTORY: Intubated. Followup. Respiratory failure. COMPARISON: 01/08/2022. FINDINGS: Stable configuration of the endotracheal tube, enteric tube, and right PICC. Persistent patchy and consolidative opacities are seen throughout the right hemithorax. Likely small to moderate right-sided pleural effusion is seen. No pneumothorax. Stable cardiac silhouette. IMPRESSION: 1. Continued widespread opacities throughout the right hemithorax, concerning for pneumonia. Small to moderate right-sided pleural effusion may be present. 2. Stable support devices. Dictated by: Dictated on workstation # [id number]
[2022-01-09] MEDS: PANTOPRAZOLE 40 MG (PROTONIX) VIAL IV SCH ×2 (08:32→20:08)
[2022-01-09] MEDS: DexMEDEtomidine 250 ML DRIP 250 ML IV SCH ×2 (08:34→20:08)
[2022-01-09 08:42] LABS: CALCIUM 8.4 MG/DL (8.5-10.1); CREATININE SERUM 0.67 MG/DL (0.60-1.30); POTASSIUM 3.7 MMOL/L (3.6-5.0)
--- NOTE | 2022-01-09 09:25 | Tele-ICU Progress Note ---
Subjective Date Seen by a Provider: Jan 09, 2022 Time Seen by a Provider: 09:25 Subjective/Events-last exam Tele-ICU Physician , Progress Note ) Available chart/ vitals / labs / Images reviewed Video assessment done using teleICU camera, rest of exam as per RN Discussed with RN Events overnight : Afebrile hemodynamically stable now, off levo at 4 am. Respiratory - intubated last night I/O = 3100/3100 Drips: precedex Pressors- no PAIN. YES will give fentanyl iv prn Consultants: Hospital course:, A/P CVS/HTN: off levo this am Rhythem nsr Echo Respiratory System. Intubated 01/08/22 Vent settings. 360/26/60%/6 sputum. c/s mrsa will wean fio2 and then consider SBT today GI Kidneys.na 129 bun 14, cr 0.6 . HEME ANTIBIOTICS. 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 Discussed with RN to reach out if any questions or concerns Sepsis Event Evaluation Height, Weight, BMI Height: 5'5.00" Weight: 129lbs. 4.0oz. 58.881491ye; 22.73 BMI Method: Focused Exam Lactate Level 01/07/22 23:30: Lactic Acid Level 1.86 01/08/22 12:50: Lactic Acid Level 1.38 Time of Focused Exam: 0215 Exam Exam Patient acknowledged, consented, and participated in this virtual visit which was conducted using real time audio/video Vital Signs Date Time Temp Pulse Resp B/P (MAP) Pulse Ox O2 Delivery O2 Flow Rate FiO2 01/09/22 08:34 114 106/61 01/09/22 08:00 118 103/62 (76) 95 Mechanical Ventilator 60.00 01/09/22 07:53 37.0 01/09/22 07:06 114 36 95 60 01/09/22 07:00 112 99/63 (75) 95 Mechanical Ventilator 60.00 01/09/22 07:00 115 01/09/22 06:00 106 29 100/61 (74) 92 Mechanical Ventilator 60.00 01/09/22 05:00 99 22 107/66 (80) 96 Mechanical Ventilator 60.00 01/09/22 04:00 100 Mechanical Ventilator 100 01/09/22 04:00 98 22 121/76 (91) 97 Mechanical Ventilator 60.00 01/09/22 03:00 106 17 90/56 (67) 94 Mechanical Ventilator 60.00 01/09/22 02:11 110 30 98 70 01/09/22 02:00 110 21 127/71 (89) 98 Mechanical Ventilator 60.00 01/09/22 01:00 102 25 115/66 (82) 97 Mechanical Ventilator 70.00 01/09/22 01:00 107 01/09/22 00:17 37.6 01/09/22 00:05 100 Mechanical Ventilator 100 01/09/22 00:00 105 21 113/63 (80) 96 Mechanical Ventilator 70.00 01/08/22 23:00 106 19 111/61 (78) 97 Mechanical Ventilator 70.00 01/08/22 22:41 105 25 100 100 01/08/22 22:00 101 23 107/60 (76) 100 Mechanical Ventilator 70.00 01/08/22 21:00 96 25 105/57 (73) 100 Mechanical Ventilator 70.00 01/08/22 20:47 92 74/58 01/08/22 20:16 36.3 01/08/22 20:00 100 Mechanical Ventilator 100 01/08/22 20:00 92 24 78/48 (58) 100 Mechanical Ventilator 100.00 01/08/22 19:16 36.5 01/08/22 19:00 82 24 80/50 (60) 98 Mechanical Ventilator 100.00 01/08/22 19:00 93 01/08/22 18:36 91 24 98 100 01/08/22 18:00 91 101/65 01/08/22 18:00 100 24 85/51 (62) 98 Mechanical Ventilator 100.00 01/08/22 17:00 100 24 83/54 (64) 97 Mechanical Ventilator 100.00 01/08/22 16:00 100 Mechanical Ventilator 100 01/08/22 16:00 98 24 79/50 (60) 97 Mechanical Ventilator 100.00 01/08/22 16:00 36.7 01/08/22 15:00 101 24 84/55 (65) 98 Mechanical Ventilator 100.00 01/08/22 14:32 101 24 97 100 01/08/22 14:00 102 22 85/51 (62) 96 Mechanical Ventilator 100.00 01/08/22 13:46 101 80/53 01/08/22 13:00 105 20 98/55 (69) 93 Mechanical Ventilator 100.00 01/08/22 12:52 101 01/08/22 12:00 36.8 01/08/22 12:00 99 23 79/54 (62) 95 Mechanical Ventilator 100.00 01/08/22 12:00 94 Mechanical Ventilator 100 01/08/22 11:40 62/45 (51) Mechanical Ventilator 100.00 01/08/22 11:34 100 26 94 100 01/08/22 11:20 102 18 71/43 (52) 96 Mechanical Ventilator 100.00 01/08/22 11:15 103 29 80/51 (61) 95 Mechanical Ventilator 100.00 01/08/22 11:10 105 23 78/79 (79) 93 Ambu Bag 01/08/22 11:05 107 22 85/52 (63) 94 NIV Bilevel 90.00 01/08/22 11:00 107 18 85/54 (64) 94 NIV Bilevel 90.00 01/08/22 10:00 109 25 90/55 (67) 94 NIV Bilevel 90.00 01/08/22 09:37 NIV Bilevel 90.00 I & O 01/09/22 07:00 Intake Total 950 ml Output Total 2450 ml Balance -1500 ml Height & Weight Height: 5'5.00" Weight: 129lbs. 4.0oz. 58.524844hi; 22.73 BMI Method: General Appearance: Chronically ill, Severe Distress HEENT: PERRL/EOMI, Normal ENT Inspection, Other (Dry oropharynx) Neck: Non Tender, Supple Respiratory: Chest Non Tender; No No Accessory Muscle Use; Respiratory Distress Cardiovascular: No No Edema, No No Gallop, No No Murmur Capillary Refill: Less Than 3 Seconds Peripheral Pulses: 2+ Radial Pulses (L) Extremity: No Pedal Edema Neurologic/Psychiatric: No Alert, No Oriented x3; Disoriented Skin: Normal Color, Diaphoresis Lymphatic: No Adenopathy Results Lab Laboratory Tests 01/07/22 23:30 01/08/22 03:30 01/08/22 08:03 01/08/22 12:50 01/08/22 16:45 01/08/22 20:20 01/09/22 03:40 01/09/22 07:49 Assessment/Plan Assessment/Plan see aboe Critical Care: Ventilator Management Time spent with patient (mins): 35 NETTIE LEWIS MD Jan 09, 2022 09:25
[2022-01-09] MEDS ORDERED: VANCOMYCIN INJECTION 0.1 MG in NS (IVPB) 250 ML IV SCH (09:45)
[2022-01-09] MEDS: ENOXAPARIN 40 MG/0.4 ML (LOVENOX) SYR SC SCH (10:12)
[2022-01-09] MEDS: fentaNYL INJ 100 MCG/2 ML AMP IVP PRN (10:14)
[2022-01-09 10:35] VITALS: BP 102/62
[2022-01-09] MEDS ORDERED: VANCOMYCIN 1250 MG/NS 250 ML IVPB IV NR ×2 (11:00)
[2022-01-09] MEDS: fentaNYL DRIP PRE-MIX 250 ML IV SCH (11:52)
[2022-01-09 12:54] LABS: INR 2.2 (0.8-1.4); POTASSIUM 3.3 MMOL/L (3.6-5.0); PROTHROMBIN TIME PATIENT 25.1 SEC (12.2-14.7)
[2022-01-09 12:56] LABS: CALCIUM 7.9 MG/DL (8.5-10.1)
[2022-01-09 13:00] LABS: CREATININE SERUM 0.64 MG/DL (0.60-1.30)
[2022-01-09 15:36] VITALS: BP 119/74
--- NOTE | 2022-01-09 17:04 | Progress Note - Hospitalist ---
Subjective HPI/CC On Admission Date Seen by Provider: Jan 09, 2022 Time Seen by Provider: 09:35 Subjective/Events-last exam She is intubated. Her daughter is at the bedside. She is awake and following commands. She says she is in pain. She wants the breathing tube out. Focused Exam Lactate Level 01/07/22 23:30: Lactic Acid Level 1.86 01/08/22 12:50: Lactic Acid Level 1.38 Time of Focused Exam: 0215 Objective Exam Vital Signs Vital Signs Date Time Temp Pulse Resp B/P (MAP) Pulse Ox O2 Delivery O2 Flow Rate FiO2 01/09/22 16:20 87 123/68 01/09/22 16:00 36.3 01/09/22 16:00 96 Mechanical Ventilator 60 01/09/22 16:00 23 40.00 Capillary Refill : Less Than 3 Seconds General Appearance: No Apparent Distress, WD/WN, Other (intubated) Respiratory: Lungs Clear, No Respiratory Distress, Other (intubated and mechanically ventilated) Cardiovascular: Regular Rate, Rhythm, No Murmur Gastrointestinal: Normal Bowel Sounds, Soft Extremity: Normal Inspection, No Pedal Edema Neurologic/Psychiatric: Alert, No Motor/Sensory Deficits Skin: Normal Color, Warm/Dry Results/Procedures Lab Laboratory Tests 01/08/22 20:20 01/09/22 03:40 01/09/22 07:49 01/09/22 12:23 Patient resulted labs reviewed. Assessment/Plan Assessment and Plan Assess & Plan/Chief Complaint Septic shock MRSA pneumonia Acute respiratory failure with hypoxia and hypercapnia Endotracheally intubated Septic encephalopathy Acute kidney injury IV fluids Sputum culture with MRSA Add Vancomycin Stop Doxycycline Continue Cefepime Pressors as needed Wean ventilator as able TeleICU following Add Fentanyl for pain DVT prophylaxis: Lovenox Critical Care Critically Ill Patient Diagnosis/Problems Diagnosis/Problems (1) Septic shock Status: Acute (2) MRSA pneumonia Status: Acute Qualifiers: Laterality: right (3) JULIAN (acute kidney injury) Status: Acute (4) Acute respiratory failure with hypoxia Status: Acute (5) Endotracheally intubated Status: Acute ELYSSA ROSSI MD Jan 09, 2022 17:04
[2022-01-09] MEDS ORDERED: CALC GLUC 1 GM/100 ML IVPB 100 ML IV ONE (17:45)
[2022-01-09 19:05] VITALS: BP 128/76
[2022-01-09] MEDS: MUPIROCIN 2% OINT 22 GM (BACTROBAN) TUBE NSEACH SCH (20:06)
[2022-01-09] MEDS: VANCOMYCIN 750 MG/NS 250 ML IVPB IV SCH ×2 (20:07)
[2022-01-09 22:22] VITALS: BP 102/83
[2022-01-10] VITALS (7 sets, daily range): BP systolic 89–137; BP diastolic 61–895
[2022-01-10] MEDS: NS IV 1000 ML 1,000 ML IV SCH ×3 (01:31→19:35)
[2022-01-10] MEDS: VASOPRESSIN INJECTION 20 UNIT in NS (IVPB) 100 ML IV SCH ×3 (01:32→22:16)
[2022-01-10] MEDS: CEFEPIME INJECTION 1,000 MG in NS (IVPB) 50 ML IV SCH ×4 (01:34→18:37)
[2022-01-10] MEDS: RT-ALBUTEROL/IPRATROPIUM 3 ML (DUONEB) VIAL INH SCH ×4 (02:43→22:10)
[2022-01-10] MEDS: NOREPINEPHRINE 8 MG/250 ML 250 ML IV SCH ×2 (03:36→12:42)
[2022-01-10 04:52] LABS: BASOPHILS # (AUTO) 0.1 10^3/uL (0.0-0.1); BASOPHILS % (AUTO) 1 % (0-10); EOSINOPHILS % (AUTO) 0 % (0-10); HEMATOCRIT 28 % (35-52); HEMOGLOBIN 9.8 g/dL (11.5-16.0); LYMPHOCYTES # (AUTO) 0.8 10^3/uL (1.0-4.0); LYMPHOCYTES % (AUTO) 4 % (12-44); MEAN CORPUSCULAR HEMOGLOBIN 30 pg (25-34); MEAN CORPUSCULAR HGB CONC 35 g/dL (32-36); MEAN CORPUSCULAR VOLUME 85 fL (80-99); MEAN PLATELET VOLUME 8.9 fL (9.0-12.2); MONOCYTES # (AUTO) 2.3 10^3/uL (0.0-1.0); MONOCYTES % (AUTO) 10 % (0-12); NEUTROPHILS # (AUTO) 17.5 10^3/uL (1.8-7.8); NEUTROPHILS % (AUTO) 80 % (42-75); PLATELET COUNT 224 10^3/uL (130-400); WHITE BLOOD COUNT 21.9 10^3/uL (4.3-11.0)
[2022-01-10 05:10] LABS: ALBUMIN 2.6 GM/DL (3.2-4.5); BILIRUBIN,DIRECT 0.4 MG/DL (0.0-0.3); BILIRUBIN,INDIRECT 0.1 MG/DL; BILIRUBIN,TOTAL 0.5 MG/DL (0.1-1.0); CALCIUM 8.7 MG/DL (8.5-10.1); CREATININE SERUM 0.66 MG/DL (0.60-1.30); MAGNESIUM 1.5 MG/DL (1.6-2.4); PHOSPHORUS 2.2 MG/DL (2.3-4.7); POTASSIUM 3.6 MMOL/L (3.6-5.0); TOTAL PROTEIN 5.4 GM/DL (6.4-8.2)
[2022-01-10 06:02] LABS: ABG BASE EXCESS -6.8 MMOL/L (-2.5-2.5); ABG OXYGEN SATURATION 92 % (94-100); ABG PCO2 34 MMHG (35-45); ABG PO2 63 MMHG (79-93); ALLENS TEST YES-POS; INSPIRED O2 60%; VENTILATOR YES
[2022-01-10 06:03] LABS: ABG PH 7.34 (7.37-7.43)
[2022-01-10] MEDS: POTASSIUM CL 10MEQ/50ML IVPB 50 ML IV SCH ×3 (06:39→08:29)
[2022-01-10] MEDS: MAGNESIUM 1 GM/100 ML IVPB 100 ML IV SCH ×3 (06:39→08:28)
[2022-01-10] MEDS: KCL 20 MEQ TAB (K-DUR) PO SCH (06:39)
[2022-01-10] MEDS: DexMEDEtomidine 250 ML DRIP 250 ML IV SCH ×2 (06:51→19:34)
[2022-01-10] MEDS: CATHETER FLUSH 10 ML SYR IVP SCH ×3 (06:52→20:59)
[2022-01-10] MEDS: fentaNYL DRIP PRE-MIX 250 ML IV SCH ×3 (06:52→19:34)
--- NOTE | 2022-01-10 08:23 | Diagnostic Imaging Report ---
EXAMINATION: Chest, 1 view. HISTORY: Intubated. Pneumonia. Followup. COMPARISON: Chest radiograph performed earlier this same date. FINDINGS: The endotracheal tube, enteric tube, and right PICC are visualized in appropriate configuration. Worsening patchy and consolidative opacities are seen throughout the right lung. There is slight improved aeration in the left perihilar region. Small right-sided pleural effusion is present. No pneumothorax. Stable cardiac silhouette. IMPRESSION: 1. Increased opacities throughout the right lung with slight improved aeration in the left perihilar region. Findings likely represent a combination of atelectasis and infection. 2. Support devices are in the appropriate configuration. Dictated by: Dictated on workstation # [id number]
[2022-01-10] MEDS: VANCOMYCIN 750 MG/NS 250 ML IVPB IV SCH ×4 (08:29→20:59)
[2022-01-10] MEDS: PANTOPRAZOLE 40 MG (PROTONIX) VIAL IV SCH ×2 (08:30→20:58)
--- NOTE | 2022-01-10 08:58 | Diagnostic Imaging Report ---
EXAMINATION: Chest radiograph, portable AP view. DATE: 01/10/2022 2:50 AM. INDICATION: 61-year-old female, intubation. COMPARISON: January 09, 2022. FINDINGS: The endotracheal tube is approximately 4.8 cm above the tatiana. The nasogastric tube extends to the inferior margin of the included [id number] with side-port at the level of the very proximal stomach. The right-sided PICC line overlies the mid to lower SVC. Heart size and mediastinal contours are unchanged. There is no identified pneumothorax. There are bilateral interstitial and alveolar opacities with more confluent alveolar consolidation present in the right lung compared to the left. Overall lung consolidation is largely unchanged since the prior study. IMPRESSION: 1. Bilateral interstitial and alveolar opacities as described above without significant interval change since January 09, 2022. 2. Support lines and tubes as above. Dictated by: Dictated on workstation # [id number]
[2022-01-10] MEDS ORDERED: POTASSIUM PHOSPHATE INJ 30 MM in NS (IVPB) 250 ML IV ONE (09:45)
--- NOTE | 2022-01-10 09:51 | Tele-ICU Progress Note ---
Subjective Date Seen by a Provider: Jan 10, 2022 Subjective/Events-last exam This virtual visit was conducted using real time audio/video. Thank you for asking us to see this patient for respiratory insufficiency due to Recent events: MRSA pna, AECOPD. Intubated 01/08. Also JULIAN, pos urine tox. PE: Sedated on ventVSS. O2 sat 94% on AC24/360/40%/+6. HEENT: No obvious masses, adenopathy or JVD. Chest: coarse on auscultation. CV: RRR S1 S2 No murmur or added sounds. Abd: Non-tender. Bowel sounds Y. : Unremarkable. Peña Y. 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 No obvious focal findings. Extremities: No edema. Capillary refill < 3 seconds. Skin: unremarkable. Results: Elevated WCC 21.9, BG 153, D-Dimer 3.92. Decreased Mag, PO4. B.34/34/63 on 60%. CXR: Hyperinflated, extensive R infilt. Video assessment done using teleICU camera, rest of exam as per RN. A/P: Respiratory insufficiency: Continue present management with vent. Will decrease set rate to decrease minute vent. Sedate to prevent overbreathing. Monitor for increasing oxygenation needs. Cont vent., duon., Prec., Fent. Critical Care: critically ill patient. Cont. abx, PPI, Juan. K Phos ordered. Discussed with SHUBHAM Mccollum. Asked RN to reach out to eICU if any questions or concerns later. Time spent with patient/coordination of care with other health professionals (mins): 30 Sepsis Event Evaluation Height, Weight, BMI Height: 5'5.00" Weight: 129lbs. 4.0oz. 58.647609dr; 23.43 BMI Method: Focused Exam Lactate Level 01/07/22 23:30: Lactic Acid Level 1.86 01/08/22 12:50: Lactic Acid Level 1.38 Time of Focused Exam: 214 Exam Exam Patient acknowledged, consented, and participated in this virtual visit which was conducted using real time audio/video Vital Signs Date Time Temp Pulse Resp B/P (MAP) Pulse Ox O2 Delivery O2 Flow Rate FiO2 01/10/22 09:00 110 18 93/66 (75) 90 Mechanical Ventilator 35.00 01/10/22 08:38 104 25 90 50 01/10/22 08:00 105 20 83/61 (68) 92 Mechanical Ventilator 35.00 01/10/22 07:44 36.7 01/10/22 07:00 109 01/10/22 07:00 120 20 88/62 (71) 91 Mechanical Ventilator 35.00 01/10/22 06:52 124 107/74 01/10/22 06:51 124 107/74 01/10/22 06:30 50 01/10/22 06:13 152 31 92 45 01/10/22 06:00 154 35 137/91 (106) 94 Mechanical Ventilator 35.00 01/10/22 05:00 130 28 147/99 (115) 91 Mechanical Ventilator 35.00 01/10/22 04:00 116 28 127/83 (98) 91 Mechanical Ventilator 35.00 01/10/22 04:00 96 Mechanical Ventilator 60 01/10/22 03:00 117 37 125/80 (95) 92 Mechanical Ventilator 35.00 01/10/22 02:46 121 35 91 45 01/10/22 02:00 84 29 137/95 (109) 92 Mechanical Ventilator 35.00 01/10/22 01:35 82 127/86 01/10/22 01:00 81 26 127/85 (99) 92 Mechanical Ventilator 35.00 01/10/22 01:00 81 01/10/22 00:00 96 Mechanical Ventilator 60 01/10/22 00:00 80 24 124/79 (94) 93 Mechanical Ventilator 35.00 01/09/22 23:00 89 24 136/86 (103) 93 Mechanical Ventilator 35.00 01/09/22 22:47 Mechanical Ventilator 35.00 01/09/22 22:22 84 23 94 35 01/09/22 22:00 86 23 132/82 (99) 94 Mechanical Ventilator 40.00 01/09/22 21:00 90 30 131/82 (98) 93 Mechanical Ventilator 40.00 01/09/22 20:08 93 129/80 01/09/22 20:00 96 Mechanical Ventilator 60 01/09/22 20:00 93 24 131/79 (96) 94 Mechanical Ventilator 40.00 01/09/22 19:58 36.4 01/09/22 19:05 79 29 93 40 01/09/22 19:00 77 23 126/79 (95) 93 Mechanical Ventilator 40.00 01/09/22 19:00 80 01/09/22 18:00 78 23 126/82 (97) 93 Mechanical Ventilator 40.00 01/09/22 17:00 85 25 127/79 (95) 93 Mechanical Ventilator 40.00 01/09/22 16:20 87 123/68 01/09/22 16:00 36.3 01/09/22 16:00 96 Mechanical Ventilator 60 01/09/22 16:00 89 23 116/75 (89) 93 Mechanical Ventilator 40.00 01/09/22 15:36 84 30 92 40 01/09/22 15:00 85 23 118/74 (89) 91 Mechanical Ventilator 40.00 01/09/22 14:38 Mechanical Ventilator 40.00 01/09/22 14:00 86 23 121/77 (92) 95 Mechanical Ventilator 50.00 01/09/22 13:12 87 119/73 01/09/22 13:00 87 23 120/74 (89) 95 Mechanical Ventilator 50.00 01/09/22 12:47 91 01/09/22 12:00 92 26 111/75 (87) 94 Mechanical Ventilator 50.00 01/09/22 12:00 96 Mechanical Ventilator 60 01/09/22 11:00 99 26 107/68 (81) 95 Mechanical Ventilator 50.00 01/09/22 10:57 28 95 Mechanical Ventilator 50.00 01/09/22 10:35 102 32 93 50 01/09/22 10:00 108 25 108/60 (76) 96 Mechanical Ventilator 60.00 I & O 01/10/22 07:00 Intake Total 2013 ml Output Total 2505 ml Balance -492 ml Height & Weight Height: 5'5.00" Weight: 129lbs. 4.0oz. 58.711789nn; 23.43 BMI Method: General Appearance: No Apparent Distress, WD/WN, Other (intubated) HEENT: PERRL/EOMI, Normal ENT Inspection, Other (Dry oropharynx) Neck: Non Tender, Supple Respiratory: Lungs Clear, No Respiratory Distress, Other (intubated and mechanically ventilated) Cardiovascular: Regular Rate, Rhythm, No Murmur Capillary Refill: Less Than 3 Seconds Peripheral Pulses: 2+ Radial Pulses (L) Extremity: Normal Inspection, No Pedal Edema Neurologic/Psychiatric: Alert, No Motor/Sensory Deficits Skin: Normal Color, Warm/Dry Lymphatic: No Adenopathy Results Lab Laboratory Tests 01/08/22 12:50 01/08/22 16:45 01/08/22 20:20 01/09/22 03:40 01/09/22 07:49 01/09/22 12:23 01/10/22 04:40 Assessment/Plan Assessment/Plan See free text Critical Care: Ventilator Management JERAD MALDONADO MD Jan 10, 2022 09:51
--- NOTE | 2022-01-10 10:19 | Consultation - Surgery ---
DEREK LAZCANO 01/10/22 1019: History of Present Illness History of Present Illness Patient Consulted On(jenny/time) 01/10/22 10:16 Date Seen by Provider: Jan 10, 2022 Time Seen by Provider: 10:16 History of Present Illness 61 yo female admitted to ICU on 01/08 from ED due to AMS, current MRSA pna, AECOPD, JULIAN with poss urine tox. Pt intubated in ICU 01/08 without complications. Family reports sick for a month with chronic cough. Currently intubated and sedated. Chest-xray 01/10 - Increased opacities throughout the right lung with slight improved aeration in the left perihilar region. Findings likely represent a combination of atelectasis and infection. Allergies and Home Medications Allergies Coded Allergies: No Known Drug Allergies (Unverified , 04/01/11) Patient Home Medication List Home Medication List Reviewed: Yes Albuterol Sulfate (Proair Hfa) 1 Puff Puff, 2 PUFF IH Q4H PRN for SHORTNESS OF BREATH, (Reported) Entered as Reported by: TAY ARIAS on 05/28/21935 Last Action: Reviewed Amitriptyline HCl (Amitriptyline HCl) 50 Mg Tablet, 50-100 MG PO HS PRN for SLEEP, (Reported) Entered as Reported by: TAY ARIAS on 01/08/221515 Last Action: Reviewed Biotin (Biotin) 2,500 Mcg Capsule, 2,500 MCG PO DAILY, (Reported) Entered as Reported by: TAY ARIAS on 05/28/21935 Last Action: Reviewed Buspirone HCl (Buspirone HCl) 30 Mg Tablet, 30 MG PO DAILY, (Reported) Entered as Reported by: TAY ARIAS on 01/08/221515 Last Action: Reviewed Buspirone HCl (Buspirone HCl) 30 Mg Tablet, 30 MG PO 1800 PRN for ANXIETY, (Reported) Entered as Reported by: TAY ARIAS on 01/08/221515 Last Action: Reviewed Calcium Carbonate (Calcium) 600 Mg Tablet, 600 MG PO DAILY, (Reported) Entered as Reported by: TAY ARIAS on 05/28/21935 Last Action: Reviewed Cholecalciferol (Vitamin D3) (Vitamin D3) 50 Mcg Capsule, 50 MCG PO DAILY, (Reported) Entered as Reported by: TAY ARIAS on 05/28/2136 Last Action: Reviewed Clonazepam (Clonazepam) 0.5 Mg Tablet, 0.25 MG PO TID, (Reported) Entered as Reported by: ALFONZO ISIDRO on 05/27/21 1641 Last Action: Reviewed Cyanocobalamin (Vitamin B-12) (Vitamin B-12) 1,000 Mcg Tablet, 1,000 MCG PO DAILY, (Reported) Entered as Reported by: TAY ARIAS on 05/28/21936 Last Action: Reviewed Cyclobenzaprine HCl (Cyclobenzaprine HCl) 10 Mg Tablet, 10 MG PO TID, (Reported) Entered as Reported by: TAY ARIAS on 01/08/22 152 Last Action: Reviewed Gabapentin (Gabapentin) 600 Mg Tablet, 600 MG PO TID, (Reported) Entered as Reported by: TAY ARIAS on 05/28/21936 Last Action: Reviewed Hydrocodone/Acetaminophen (Hydrocodone-Acetamin 10-325 mg) 1 Each Tablet, 1 EACH PO QID PRN for PAIN-MODERATE (5-7), (Reported) Entered as Reported by: TAY ARIAS on 05/28/21936 Last Action: Reviewed Multivitamin (Multivitamins) 1 Each Tablet, 1 EACH PO DAILY, (Reported) Entered as Reported by: BHUPENDRA PARKS on 06/22/16 132 Last Action: Reviewed Multivits,Stress Formula (Stress Formula) 1 Each Tablet, 1 EACH PO DAILY, (Reported) Entered as Reported by: TAY ARIAS on 01/08/221516 Last Action: Reviewed Ondansetron (Ondansetron Odt) 4 Mg Tab.rapdis, 4 MG PO Q6H PRN for NAUSEA/VOMITING-1ST LINE, (Reported) Entered as Reported by: TAY ARIAS on 01/08/221515 Last Action: Reviewed Pantoprazole Sodium (Pantoprazole Sodium) 40 Mg Tablet.dr, 40 MG PO BID, (Reported) Entered as Reported by: TAY ARIAS on 01/08/221515 Last Action: Reviewed Pravastatin Sodium (Pravastatin Sodium) 40 Mg Tablet, 40 MG PO HS, (Reported) Entered as Reported by: BHUPENDRA PARKS on 06/22/16 1321 Last Action: Reviewed Quetiapine Fumarate (Quetiapine Fumarate ER) 300 Mg Tab.er.24h, 300 MG PO HS, (Reported) Entered as Reported by: TAY ARIAS on 01/08/22 151 Last Action: Reviewed Quetiapine Fumarate (Quetiapine Fumarate) 50 Mg Tablet, 50 MG PO HS PRN for INSOMNIA, (Reported) Entered as Reported by: TAY ARIAS on 01/08/22 151 Last Action: Reviewed Vortioxetine Hydrobromide (Trintellix) 20 Mg Tablet, 20 MG PO DAILY, (Reported) Entered as Reported by: TAY ARIAS on 05/28/2136 Last Action: Reviewed Discontinued Medications Docusate Sodium (Colace) 100 Mg Capsule, 100 MG PO BID Discontinued Reason: No Longer Taking Prescribed by: ROBERT DUKES on 05/28/21 1150 Last Action: Discontinued Melatonin (Melatonin) 3 Mg Tablet, 3 MG PO HS, (Reported) Discontinued Reason: No Longer Taking Entered as Reported by: TAY ARIAS on 05/28/21935 Last Action: Discontinued Quetiapine Fumarate (Quetiapine Fumarate ER) 50 Mg Tab.er.24h, 100 MG PO HS, (Reported) Discontinued Reason: Duplicate Order Entered as Reported by: ALFONZO ISIDRO on 05/27/21 1641 Last Action: Discontinued Past Bgigvlk-Vmxgoh-Flwhxj Hx Patient Social History Smoking Status: Unknown if Ever Smoked Former Smoker, Quit: Apr 25, 2016 Recent Hopitalizations: No Alcohol Use?: No Substance type: Opiates/Opioids, Marijuana Have you traveled recently?: Unable to obtain Immunizations Up To Date Date of Influenza Vaccine: Nov 27, 2020 Seasonal Allergies Seasonal Allergies: No Surgeries History of Surgeries: Yes Surgeries: Appendectomy, Hysterectomy Respiratory History of Respiratory Disorde: No Cardiovascular History of Cardiac Disorders: No Neurological History of Neurological Disord: No Reproductive System : No Hx Reproductive Disorders: No [employer] History: Hysterectomy Genitourinary History of Genitourinary Disor: No Gastrointestinal History of Gastrointestinal Di: No Musculoskeletal History of Musculoskeletal Dis: Yes Musculoskeletal Disorders: Chronic Back Pain Endocrine History of Endocrine Disorders: No HEENT History of HEENT Disorders: No Cancer History of Cancer: No Psychosocial History of Psychiatric Problem: Yes Behavioral Health Disorders: Anxiety, Depression Family Medical History Significant Family History: No Pertinent Family Hx Family Medial History: Alcoholism G8 BROTHER Asthma G8 BROTHER Drug abuse G8 BROTHER Kidney disease G8 BROTHER Psychosocial problem G8 BROTHER G8 SISTER Thyroid disease 19 MOTHER Review of Systems-General ROS-Unable to Obtain: Pt is intubated so unable to obtain Physical Exam-General Problems Physical Exam Vital Signs Vital Signs - First Documented 01/07/22 01/08/22 23:20 04:00 Temp 36.0 Pulse 113 Resp 16 B/P (MAP) 78/51 (60) Pulse Ox 99 O2 Delivery OxyMask O2 Flow Rate 10.00 FiO2 80 Capillary Refill : Less Than 3 Seconds Data Review Labs Laboratory Tests 01/09/22 11:44: Glucometer 79 01/09/22 12:23: Prothrombin Time 25.1H, INR Comment 2.2H, Sodium Level 135, Potassium Level 3.3L , Chloride Level 103, Carbon Dioxide Level 15L, Anion Gap 17H, Blood Urea Nitrogen 13, Creatinine 0.64, Estimat Glomerular Filtration Rate 100, BUN/Creatinine Ratio 20, Glucose Level 73, Calcium Level 7.9L 01/09/22 15:47: Glucometer 75 01/09/22 19:38: Glucometer 82 01/10/22 00:07: Glucometer 87 01/10/22 04:40: White Blood Count 21.9H, Red Blood Count 3.28L, Hemoglobin 9.8L, Hematocrit 28L, Mean Corpuscular Volume 85, Mean Corpuscular Hemoglobin 30, Mean Corpuscular Hemoglobin Concent 35, Red Cell Distribution Width 15.0H, Platelet Count 224, Mean Platelet Volume 8.9L, Immature Granulocyte % (Auto) 5, Neutrophils (%) (Auto) 80H, Lymphocytes (%) (Auto) 4L, Monocytes (%) (Auto) 10, Eosinophils (%) (Auto) 0, Basophils (%) (Auto) 1, Neutrophils # (Auto) 17.5H, Lymphocytes # (Auto) 0.8L, Monocytes # (Auto) 2.3H, Eosinophils # (Auto) 0.0, Basophils # (Auto) 0.1, Immature Granulocyte # (Auto) 1.2H, Sodium Level 138, Potassium Level 3.6, Chloride Level 108H, Carbon Dioxide Level 15L, Anion Gap 15H, Blood Urea Nitrogen 14, Creatinine 0.66, Estimat Glomerular Filtration Rate 100, BUN/Creatinine Ratio 21, Glucose Level 128H, Calcium Level 8.7, Corrected Calcium 9.8, Phosphorus Level 2.2L, Magnesium Level 1.5L, Total Bilirubin 0.5, Direct Bilirubin 0.4H, Indirect Bilirubin 0.1, Aspartate Amino Transf (AST/SGOT) 32, Alanine Aminotransferase (ALT/SGPT) 21, Alkaline Phosphatase 110, Total Protein 5.4L, Albumin 2.6L 01/10/22 04:47: Glucometer 133H 01/10/22 05:48: Blood Gas Puncture Site UNK, Blood Gas Patient Temperature UNK, Arterial Blood pH 7.34*L, Arterial Blood Partial Pressure CO2 34L, Arterial Blood Partial Pressure O2 63L, Arterial Blood HCO3 18L, Arterial Blood Total CO2 19.0L, Arterial Blood Oxygen Saturation 92L, Arterial Blood Base Excess -6.8L, Wiley Test YES-POS, Blood Gas Ventilator Setting YES, Blood Gas Inspired Oxygen 60% 01/10/22 07:38: Glucometer 153H Microbiology 01/08/22 Gram Stain - Final, Resulted 01/08/22 Sputum Culture - Preliminary, Resulted Staphylococcus aureus 01/08/22 Urine Culture - Final, Complete NO GROWTH 01/07/22 Blood Culture - Preliminary, Resulted No growth Assessment/Plan Assessment/Plan Assessment/Plan Septic shock MRSA pneumonia Acute respiratory failure with hypoxia and hypercapnia Endotracheally intubated Septic encephalopathy Acute kidney injury Bronchoscopy today. Discussed with family the risks and benefits of procedure. Obtained consent. Hold Lovenox until after bronchoscopy Repeat chest x-ray after broch and in am, or sooner if respiratory sx worsen SOUTH ALVAREZ DO 01/10/22 1400: History of Present Illness History of Present Illness History of Present Illness Consult requested for possible bronchoscopy for right MRSA pneumonia. Patient is a 61-year-old female who is currently intubated due to respiratory failure due to MRSA pneumonia. Patient has been getting a lot of secretions with respiratory therapy and felt that it may be beneficial to do a bronchoscopy and washings. Patient currently intubated unable to provide any information. Family at bedside. They states has been having a cough for couple months without any improvement. Then suddenly declined. Chart reviewed. Allergies and Home Medications Allergies Coded Allergies: No Known Drug Allergies (Unverified , 04/01/11) Patient Home Medication List Home Medication List Reviewed: Yes Albuterol Sulfate (Proair Hfa) 1 Puff Puff, 2 PUFF IH Q4H PRN for SHORTNESS OF BREATH, (Reported) Entered as Reported by: TAY ARIAS on 05/28/21935 Last Action: Reviewed Amitriptyline HCl (Amitriptyline HCl) 50 Mg Tablet, 50-100 MG PO HS PRN for SLEEP, (Reported) Entered as Reported by: TAY ARIAS on 01/08/221515 Last Action: Reviewed Biotin (Biotin) 2,500 Mcg Capsule, 2,500 MCG PO DAILY, (Reported) Entered as Reported by: TAY ARIAS on 05/28/21935 Last Action: Reviewed Buspirone HCl (Buspirone HCl) 30 Mg Tablet, 30 MG PO DAILY, (Reported) Entered as Reported by: TAY ARIAS on 01/08/221515 Last Action: Reviewed Buspirone HCl (Buspirone HCl) 30 Mg Tablet, 30 MG PO 1800 PRN for ANXIETY, (Rep orted) Entered as Reported by: TAY ARIAS on 01/08/221515 Last Action: Reviewed Calcium Carbonate (Calcium) 600 Mg Tablet, 600 MG PO DAILY, (Reported) Entered as Reported by: TAY ARIAS on 05/28/21935 Last Action: Reviewed Cholecalciferol (Vitamin D3) (Vitamin D3) 50 Mcg Capsule, 50 MCG PO DAILY, (Re ported) Entered as Reported by: TAY ARIAS on 05/28/21935 Last Action: Reviewed Clonazepam (Clonazepam) 0.5 Mg Tablet, 0.25 MG PO TID, (Reported) Entered as Reported by: ALFONZO ISIDRO on 05/27/21 1641 Last Action: Reviewed Cyanocobalamin (Vitamin B-12) (Vitamin B-12) 1,000 Mcg Tablet, 1,000 MCG PO DAILY, (Reported) Entered as Reported by: TAY ARIAS on 05/28/21936 Last Action: Reviewed Cyclobenzaprine HCl (Cyclobenzaprine HCl) 10 Mg Tablet, 10 MG PO TID, (Reported) Entered as Reported by: TAY ARIAS on 01/08/22 152 Last Action: Reviewed Gabapentin (Gabapentin) 600 Mg Tablet, 600 MG PO TID, (Reported) Entered as Reported by: TAY ARIAS on 05/28/21936 Last Action: Reviewed Hydrocodone/Acetaminophen (Hydrocodone-Acetamin 10-325 mg) 1 Each Tablet, 1 EACH PO QID PRN for PAIN-MODERATE (5-7), (Reported) Entered as Reported by: TAY ARIAS on 05/28/21936 Last Action: Reviewed Multivitamin (Multivitamins) 1 Each Tablet, 1 EACH PO DAILY, (Reported) Entered as Reported by: BHUPENDRA PARKS on 06/22/161320 Last Action: Reviewed Multivits,Stress Formula (Stress Formula) 1 Each Tablet, 1 EACH PO DAILY, (Reported) Entered as Reported by: TAY ARIAS on 01/08/221516 Last Action: Reviewed Ondansetron (Ondansetron Odt) 4 Mg Tab.rapdis, 4 MG PO Q6H PRN for NAUSEA/VOMITING-1ST LINE, (Reported) Entered as Reported by: TAY ARIAS on 01/08/221515 Last Action: Reviewed Pantoprazole Sodium (Pantoprazole Sodium) 40 Mg Tablet.dr, 40 MG PO BID, (Reported) Entered as Reported by: TAY ARIAS on 01/08/221515 Last Action: Reviewed Pravastatin Sodium (Pravastatin Sodium) 40 Mg Tablet, 40 MG PO HS, (Reported) Entered as Reported by: BHUPENDRA PARKS on 06/22/161320 Last Action: Reviewed Quetiapine Fumarate (Quetiapine Fumarate ER) 300 Mg Tab.er.24h, 300 MG PO HS, (Reported) Entered as Reported by: TAY ARIAS on 01/08/221515 Last Action: Reviewed Quetiapine Fumarate (Quetiapine Fumarate) 50 Mg Tablet, 50 MG PO HS PRN for INSOMNIA, (Reported) Entered as Reported by: TAY ARIAS on 01/08/221515 Last Action: Reviewed Vortioxetine Hydrobromide (Trintellix) 20 Mg Tablet, 20 MG PO DAILY, (Reported) Entered as Reported by: TAY ARIAS on 05/28/21935 Last Action: Reviewed Discontinued Medications Docusate Sodium (Colace) 100 Mg Capsule, 100 MG PO BID Discontinued Reason: No Longer Taking Prescribed by: ROBERT DUKES on 05/28/21 1150 Last Action: Discontinued Melatonin (Melatonin) 3 Mg Tablet, 3 MG PO HS, (Reported) Discontinued Reason: No Longer Taking Entered as Reported by: TAY ARIAS on 05/28/21 0936 Last Action: Discontinued Quetiapine Fumarate (Quetiapine Fumarate ER) 50 Mg Tab.er.24h, 100 MG PO HS, (Reported) Discontinued Reason: Duplicate Order Entered as Reported by: ALFONZO ISIDRO on 05/27/21 1641 Last Action: Discontinued Past Kwfsjue-Qrlwfi-Qcbzdd Hx Reviewed Nursing Assessment Reviewed/Agree w Nursing PMH: Yes Family Medical History Significant Family History: No Pertinent Family Hx Family Medial History: Alcoholism G8 BROTHER Asthma G8 BROTHER Drug abuse G8 BROTHER Kidney disease G8 BROTHER Psychosocial problem G8 BROTHER G8 SISTER Thyroid disease 19 MOTHER Review of Systems-General ROS-Unable to Obtain: intubated and sedated Physical Exam-General Problems Physical Exam General Appearance: no apparent distress, other (intubated and sedated) HEENT: PERRL/EOMI, normal ENT inspection Neck: supple, other (et tube) Respiratory: chest non-tender, other (equal chest rise) Cardiovascular: regular rate, rhythm, no JVD Gastrointestinal: soft, distended (minimal) Rectal: deferred Back: normal inspection Extremities: non-tender, normal inspection Neurologic/Psychiatric: No alert, No oriented x 3; other (intubated and sedated) Skin: normal color, warm/dry Lymphatic: no adenopathy Assessment/Plan Assessment/Plan Assessment/Plan Septic shock MRSA pneumonia Acute respiratory failure with hypoxia and hypercapnia Endotracheally intubated Septic encephalopathy Acute kidney injury Bronchoscopy today. Discussed with family the risks and benefits of procedure. Obtained consent. Hold Lovenox until after bronchoscopy Repeat chest x-ray after broch and in am, or sooner if respiratory symptoms worsen may need repeat bronchoscopy washing sent for culture continue abx Supervisory-Addendum Brief Verification & Attestation Participated in pt care: history, MDM, physical Personally performed: exam, history, MDM, supervision of care Care discussed with: Medical Student Procedures: n/a Results interpretation: Verified all documentation Verification and Attestation of Medical Student E/M Service A medical student performed and documented this service in my presence. I r eviewed and verified all information documented by the medical student and made modifications to such information, when appropriate. I personally performed the physical exam and medical decision making. [place], Jan 10, 2022,14:00 DEREK LAZCANO Jan 10, 2022 10:19 SOUTH ALVAREZ DO Jan 10, 2022 14:00
[2022-01-10] MEDS: ENOXAPARIN 40 MG/0.4 ML (LOVENOX) SYR SC SCH (10:31)
[2022-01-10] MEDS ORDERED: PROPOFOL DRIP (ICU) 100 ML IV SCH (10:45)
[2022-01-10] MEDS: MUPIROCIN 2% OINT 22 GM (BACTROBAN) TUBE NSEACH SCH ×2 (11:24→20:58)
--- NOTE | 2022-01-10 12:06 | Diagnostic Imaging Report ---
EXAMINATION: Chest radiograph, portable AP view. DATE: 01/10/2022 11:49 AM. INDICATION: 61-year-old female, status post bronchoscopy. Shortness of breath. COMPARISON: January 10, 2022 at 0759 hours. FINDINGS: The endotracheal tube is approximately 4.2 cm above the tatiana. The nasogastric tube extends below the included nvpsg-to-hoht. The right-sided PICC line overlies the mid SVC. The heart size and mediastinal contours are unchanged. There is no identified pneumothorax. There is extensive multifocal airspace consolidation in the right lung. There are bilateral interstitial and/or alveolar opacities. Overall lung aeration appears essentially unchanged. There is likely a right pleural effusion. IMPRESSION: 1. Grossly unchanged multifocal bilateral lung consolidation as described above. 2. Support lines and tubes as above. Dictated by: Dictated on workstation # [id number]
[2022-01-10] MEDS: ACETAMINOPHEN 325 MG TABLET NG PRN (17:09)
--- NOTE | 2022-01-10 18:24 | OPERATIVE REPORT ---
DATE OF SERVICE: 01/10/2022 PREOPERATIVE DIAGNOSIS: Right MRSA pneumonia. POSTOPERATIVE DIAGNOSIS: Right MRSA pneumonia. PROCEDURES PERFORMED: Bronchoscopy with bronchial washings. SURGEON: Gaby Marie DO. ANESTHESIA: Sedation. ESTIMATED BLOOD LOSS: None. COMPLICATIONS: None. INDICATIONS FOR PROCEDURE: The patient is a 61-year-old female with right MRSA pneumonia. She is intubated. It has been requested that I do a bronchoscopy for washings and suctioning to see if we can improve condition. The patient's family was discussed risks and benefits of the procedure and wished to proceed. Consent was signed in the chart. DESCRIPTION OF PROCEDURE: The patient was in the Intensive Care Unit. She has already been sedated due to being intubated. The bronchoscope was inserted down the endotracheal tube. Tatiana appeared normal. The left main bronchus was proceeded downward noting no pathology. No significant secretions or no visible masses. The area was irrigated and suctioned without any significant findings. Scope was then retracted back to the tatiana and then gone down to the right main bronchus, visualizing no significant inflammation of the bronchioles. There was some mucus present. Irrigation and suction was performed, small amount of thick secretions were able to be suctioned and obtained for cultures, no other pathology noted. No masses or ulcerations, just some slight erythematous changes. Scope was retracted back into the trachea and slowly retracted until completely removed, noting no other pathology. The patient tolerated the procedure well without any complications. Chest x-ray pending. Job ID: [id number] DocumentID: [id number] Dictated Date: 01/10/2022 12:07:35 Hardboard Press Operator Date: 01/10/2022 18:24:02 Dictated By: GABY MARIE DO
--- NOTE | 2022-01-10 20:46 | Progress Note - Hospitalist ---
Subjective HPI/CC On Admission Date Seen by Provider: Jan 10, 2022 Time Seen by Provider: 09:50 Subjective/Events-last exam She remains intubated and sedated. She had worsening respiratory distress overnight and her oxygen requirement went up. Her son is present and was updated. Focused Exam Lactate Level 01/07/22 23:30: Lactic Acid Level 1.86 01/08/22 12:50: Lactic Acid Level 1.38 Time of Focused Exam: 0215 Objective Exam Vital Signs Vital Signs Date Time Temp Pulse Resp B/P (MAP) Pulse Ox O2 Delivery O2 Flow Rate FiO2 01/10/22 19:59 Mechanical Ventilator 60 01/10/22 19:34 106 93/66 01/10/22 19:14 22 95 01/10/22 18:18 50.00 01/10/22 18:00 38.7 Capillary Refill : Less Than 3 Seconds General Appearance: No Apparent Distress, WD/WN, Other (intubated and sedated) Respiratory: No Respiratory Distress, Decreased Breath Sounds, Other (intubated and mechanically ventilated) Cardiovascular: Regular Rate, Rhythm, No Murmur Gastrointestinal: Normal Bowel Sounds, Soft Extremity: Normal Inspection, No Pedal Edema Neurologic/Psychiatric: Other (sedated) Skin: Normal Color, Warm/Dry Results/Procedures Lab Laboratory Tests 01/10/22 04:40 Patient resulted labs reviewed. Assessment/Plan Assessment and Plan Assess & Plan/Chief Complaint Septic shock MRSA pneumonia Acute respiratory failure with hypoxia and hypercapnia Endotracheally intubated Septic encephalopathy Acute kidney injury IV fluids Sputum culture with MRSA Continue Vancomycin and Cefepime Off pressors Wean ventilator as able TeleICU following Surgery consulted, bronch today DVT prophylaxis: Lovenox Critical Care Ventilator Management Diagnosis/Problems Diagnosis/Problems (1) Septic shock Status: Acute (2) MRSA pneumonia Status: Acute Qualifiers: Laterality: right (3) JULIAN (acute kidney injury) Status: Acute (4) Acute respiratory failure with hypoxia Status: Acute (5) Endotracheally intubated Status: Acute ELYSSA ROSSI MD Jan 10, 2022 20:46
[2022-01-11] MEDS: CEFEPIME INJECTION 1,000 MG in NS (IVPB) 50 ML IV SCH ×5 (00:07→23:56)
[2022-01-11] MEDS: fentaNYL DRIP PRE-MIX 250 ML IV SCH ×5 (01:19→23:56)
[2022-01-11 03:02] VITALS: BP 96/63
[2022-01-11] MEDS: RT-ALBUTEROL/IPRATROPIUM 3 ML (DUONEB) VIAL INH SCH ×5 (03:02→21:07)
[2022-01-11] MEDS: NS IV 1000 ML 1,000 ML IV SCH ×3 (05:40→17:01)
[2022-01-11 05:44] LABS: BASOPHILS # (AUTO) 0.2 10^3/uL (0.0-0.1); BASOPHILS % (AUTO) 1 % (0-10); EOSINOPHILS % (AUTO) 0 % (0-10); HEMATOCRIT 29 % (35-52); HEMOGLOBIN 9.5 g/dL (11.5-16.0); LYMPHOCYTES # (AUTO) 1.6 10^3/uL (1.0-4.0); LYMPHOCYTES % (AUTO) 5 % (12-44); MEAN CORPUSCULAR HEMOGLOBIN 30 pg (25-34); MEAN CORPUSCULAR HGB CONC 33 g/dL (32-36); MEAN CORPUSCULAR VOLUME 89 fL (80-99); MEAN PLATELET VOLUME 9.2 fL (9.0-12.2); MONOCYTES # (AUTO) 3.3 10^3/uL (0.0-1.0); MONOCYTES % (AUTO) 11 % (0-12); NEUTROPHILS # (AUTO) 21.7 10^3/uL (1.8-7.8); NEUTROPHILS % (AUTO) 75 % (42-75); PLATELET COUNT 175 10^3/uL (130-400); WHITE BLOOD COUNT 29.1 10^3/uL (4.3-11.0)
[2022-01-11 06:10] LABS: ALBUMIN 2.4 GM/DL (3.2-4.5)
[2022-01-11 06:12] LABS: CALCIUM 8.2 MG/DL (8.5-10.1)
[2022-01-11 06:13] LABS: TOTAL PROTEIN 5.2 GM/DL (6.4-8.2)
[2022-01-11 06:15] LABS: ABG OXYGEN SATURATION 93 % (94-100); ABG PCO2 60 MMHG (35-45); ABG PO2 73 MMHG (79-93); ABG TCO2 24.6 MMOL/L (21.0-31.0)
[2022-01-11 06:15] LABS: BILIRUBIN,TOTAL 0.4 MG/DL (0.1-1.0)
[2022-01-11 06:16] LABS: PHOSPHORUS 2.8 MG/DL (2.3-4.7)
[2022-01-11 06:17] LABS: CREATININE SERUM 0.58 MG/DL (0.60-1.30)
[2022-01-11 06:18] LABS: ABG PH 7.21 (7.37-7.43)
[2022-01-11 06:18] LABS: BILIRUBIN,DIRECT 0.3 MG/DL (0.0-0.3); BILIRUBIN,INDIRECT 0.1 MG/DL
[2022-01-11 06:19] LABS: ALLENS TEST NO
[2022-01-11 06:20] LABS: MAGNESIUM 1.5 MG/DL (1.6-2.4)
[2022-01-11 06:20] LABS: INSPIRED O2 50%; PATIENT TEMP 98.7; VENTILATOR YES
[2022-01-11] MEDS: KCL 20 MEQ TAB (K-DUR) PO SCH (06:21)
[2022-01-11] MEDS: POTASSIUM CL 10MEQ/50ML IVPB 50 ML IV SCH ×3 (06:21→09:11)
[2022-01-11] MEDS: CATHETER FLUSH 10 ML SYR IVP SCH ×3 (06:28→20:32)
[2022-01-11] MEDS: MAGNESIUM 1 GM/100 ML IVPB 100 ML IV SCH ×3 (06:29→07:48)
[2022-01-11 06:30] VITALS: BP 92/62
[2022-01-11] MEDS: DexMEDEtomidine 250 ML DRIP 250 ML IV SCH ×2 (06:36→18:06)
--- NOTE | 2022-01-11 06:46 | Occ Therapy Progress Note ---
Therapy Progress Note Pt currently intubated. OT to monitor pt's status then will initiate eval/treatment when pt is medically stable and able to tolerate skilled therapy. SAI MIJARES Jan 11, 2022 06:46
[2022-01-11 07:15] VITALS: BP 86/55
[2022-01-11] MEDS ORDERED: TROUGH ORDER-PHARMACY XX NR (07:30)
--- NOTE | 2022-01-11 07:37 | Physical Therapy Progress Note ---
Therapy Progress Note Patient currently intubated and sedated. PT will continue to monitor patient status and initiate treatment when patient is medically stable and able to actively participate with skilled therapy. JUAN ALBERTO PAZ PT Jan 11, 2022 07:37
--- NOTE | 2022-01-11 07:39 | Progress Note - Surgery ---
DEREK LAZCANO 01/11/22 0739: Subjective Date Seen by a Provider: Jan 11, 2022 Time Seen by a Provider: 07:38 Subjective/Events-last exam 61 yo female admitted to ICU on 01/08 from ED due to AMS, current MRSA pna, AECOPD, JULIAN with poss urine tox. Pt intubated in ICU 01/08 without complications. Family reports sick for a month with chronic cough. Currently intubated and sedated. Pt had bronch done yesterday. Tolerated well without complications. Pt had worsened respiratory status since bronch with thickened sputum and secretions, Chest x-ray repeated this morning, pending results. Chest x-ray 01/10 post bronch - Grossly unchanged multifocal bilateral lung consolidation Chest-xray 01/10 - Increased opacities throughout the right lung with slight improved aeration in the left perihilar region. Findings likely represent a combination of atelectasis and infection. Focused Exam Lactate Level 01/08/22 12:50: Lactic Acid Level 1.38 Time of Focused Exam: 0215 Objective Exam Vital Signs Date Time Temp Pulse Resp B/P (MAP) Pulse Ox O2 Delivery O2 Flow Rate FiO2 01/11/22 06:00 100 20 95/65 (75) 94 Mechanical Ventilator 50.00 01/11/22 05:00 107 20 103/64 (77) 93 Mechanical Ventilator 50.00 01/11/22 04:00 Mechanical Ventilator 60 01/11/22 04:00 112 20 130/85 (95) 91 Mechanical Ventilator 50.00 01/11/22 03:07 98 20 96 Mechanical Ventilator 50.00 01/11/22 03:02 99 24 95 60 01/11/22 03:00 98 20 96/63 (75) 94 Mechanical Ventilator 60.00 01/11/22 02:00 37.5 01/11/22 02:00 101 20 97/67 (78) 96 Mechanical Ventilator 60.00 01/11/22 01:00 102 20 94/65 (74) 96 Mechanical Ventilator 60.00 01/11/22 01:00 102 01/11/22 00:06 Mechanical Ventilator 60 01/11/22 00:00 107 20 100/68 (78) 97 Mechanical Ventilator 60.00 01/10/22 23:00 110 20 98/66 (77) 99 Mechanical Ventilator 60.00 01/10/22 22:21 105 20 93 Mechanical Ventilator 60.00 01/10/22 22:10 110 20 89 50 01/10/22 22:00 37.3 01/10/22 22:00 105 20 89/61 (70) 93 Mechanical Ventilator 50.00 01/10/22 21:00 112 20 99/66 (76) 94 Mechanical Ventilator 50.00 01/10/22 20:00 105 20 95/69 (76) 97 Mechanical Ventilator 50.00 01/10/22 19:59 Mechanical Ventilator 60 01/10/22 19:34 106 93/66 01/10/22 19:34 106 93/66 01/10/22 19:14 105 22 95 50 01/10/22 19:00 106 01/10/22 19:00 106 20 96/62 (72) 94 Mechanical Ventilator 50.00 01/10/22 18:18 Mechanical Ventilator 50.00 01/10/22 18:00 111 18 96/65 (75) 95 Mechanical Ventilator 40.00 01/10/22 18:00 38.7 01/10/22 17:09 39.7 01/10/22 17:00 114 17 100/68 (79) 92 Mechanical Ventilator 40.00 01/10/22 16:37 39.8 01/10/22 16:00 Mechanical Ventilator 60 01/10/22 16:00 115 15 98/68 (78) 91 Mechanical Ventilator 40.00 01/10/22 15:16 Mechanical Ventilator 40.00 01/10/22 15:03 110 22 94 50 01/10/22 15:00 110 16 94/67 (76) 94 Mechanical Ventilator 50.00 01/10/22 14:00 112 10 93/64 (74) 95 Mechanical Ventilator 50.00 01/10/22 13:57 112 92/59 01/10/22 13:48 Mechanical Ventilator 50.00 01/10/22 13:00 120 20 92/59 (70) 97 Mechanical Ventilator 35.00 01/10/22 12:48 100 01/10/22 12:42 99 75/50 01/10/22 12:00 101 16 75/50 (58) 94 Mechanical Ventilator 35.00 01/10/22 12:00 Mechanical Ventilator 60 01/10/22 11:51 38.1 01/10/22 11:27 120 29 92 50 01/10/22 11:20 24 01/10/22 11:00 106 17 72/49 (57) 95 Mechanical Ventilator 35.00 01/10/22 10:55 101 83/61 01/10/22 10:00 108 14 87/61 (70) 91 Mechanical Ventilator 35.00 01/10/22 09:00 110 18 93/66 (75) 90 Mechanical Ventilator 35.00 01/10/22 08:38 104 25 90 50 01/10/22 08:00 105 20 83/61 (68) 92 Mechanical Ventilator 35.00 01/10/22 08:00 Mechanical Ventilator 60 01/10/22 07:44 36.7 I & O 01/11/22 07:00 Intake Total 2981 ml Output Total 1375 ml Balance 1606 ml Capillary Refill : Less Than 3 Seconds General Appearance: No Apparent Distress, WD/WN, Other (intubated and sedated) HEENT: PERRL/EOMI, Normal ENT Inspection, Other (Dry oropharynx) Neck: Non Tender, Supple Respiratory: No Respiratory Distress, Decreased Breath Sounds, Other (intubated and mechanically ventilated) Cardiovascular: Regular Rate, Rhythm, No Murmur Peripheral Pulses: 2+ Radial Pulses (L) Gastrointestinal: soft, distended (minimal) Extremity: Normal Inspection, No Pedal Edema Neurologic/Psychiatric: Other (sedated) Skin: Normal Color, Warm/Dry Lymphatic: No Adenopathy Results Lab Laboratory Tests 01/10/22 07:38: Glucometer 153H 01/10/22 11:22: Glucometer 130H 01/10/22 18:08: Glucometer 98 01/10/22 21:11: Glucometer 121H 01/11/22 00:03: Glucometer 81 01/11/22 04:43: Glucometer 163H 01/11/22 05:40: White Blood Count 29.1H, Red Blood Count 3.19L, Hemoglobin 9.5L, Hematocrit 29L, Mean Corpuscular Volume 89, Mean Corpuscular Hemoglobin 30, Mean Corpuscular Hemoglobin Concent 33, Red Cell Distribution Width 16.4H, Platelet Count 175, Mean Platelet Volume 9.2, Immature Granulocyte % (Auto) 8, Neutrophils (%) (Auto) 75, Lymphocytes (%) (Auto) 5L, Monocytes (%) (Auto) 11, Eosinophils (%) (Auto) 0, Basophils (%) (Auto) 1, Neutrophils # (Auto) 21.7H, Lymphocytes # (Auto) 1.6, Monocytes # (Auto) 3.3H, Eosinophils # (Auto) 0.0, Basophils # (Auto) 0.2H, Immature Granulocyte # (Auto) 2.4H, Sodium Level 140, Potassium Level 4.0, Chloride Level 114H, Carbon Dioxide Level 19L, Anion Gap 7, Blood Urea Nitrogen 14, Creatinine 0.58L, Estimat Glomerular Filtration Rate 103, BUN/Creatinine Ratio 24, Glucose Level 162H, Calcium Level 8.2L, Corrected Calcium 9.5, Phosphorus Level 2.8, Magnesium Level 1.5L, Total Bilirubin 0.4, Direct Bilirubin 0.3, Indirect Bilirubin 0.1, Aspartate Amino Transf (AST/SGOT) 42H, Alanine Aminotransferase (ALT/SGPT) 27, Alkaline Phosphatase 106, Total Protein 5.2L, Albumin 2.4L 01/11/22 06:05: Blood Gas Puncture Site R RAD, Blood Gas Patient Temperature 98.7, Arterial Blood pH 7.21*L, Arterial Blood Partial Pressure CO2 60H, Arterial Blood Partial Pressure O2 73L, Arterial Blood HCO3 23, Arterial Blood Total CO2 24.6, Arterial Blood Oxygen Saturation 93L, Arterial Blood Base Excess -4.0L, Wiley Test NO, Blood Gas Ventilator Setting YES, Blood Gas Inspired Oxygen 50% Microbiology 01/08/22 Gram Stain - Final, Resulted 01/08/22 Sputum Culture - Preliminary, Resulted Staphylococcus aureus 01/08/22 Urine Culture - Final, Complete NO GROWTH 01/07/22 Blood Culture - Preliminary, Resulted No growth Assessment/Plan Assessment/Plan Assessment/Plan Septic shock MRSA pneumonia Acute respiratory failure with hypoxia and hypercapnia Endotracheally intubated Septic encephalopathy Acute kidney injury Bronchoscopydone yesterday . Discussed with family the risks and benefits of procedure. Obtained consent. Restart Lovenox Repeat chest x-ray in am, or sooner if respiratory symptoms worsen repeat bronchoscopy washing sent for culture continue abx SOUTH MARIE DO 01/11/22 1338: Subjective Subjective/Events-last exam Intubated and sedated. No family at bedside. Chest x ray no signficant change from yesterday. Objective Exam General Appearance: No Apparent Distress, Other (intubated and sedated) HEENT: PERRL/EOMI, Normal ENT Inspection Neck: Normal Inspection, Supple Respiratory: Decreased Breath Sounds, Other (intubated and mechanically ventilated) Cardiovascular: Regular Rate, Rhythm, No JVD Gastrointestinal: soft, distended (minimal) Extremity: Normal Capillary Refill, Normal Inspection Neurologic/Psychiatric: No Alert, No Oriented x3; Other (sedated) Skin: Normal Color, Warm/Dry Lymphatic: No Adenopathy Assessment/Plan Assessment/Plan Assessment/Plan Septic shock MRSA pneumonia Acute respiratory failure with hypoxia and hypercapnia Endotracheally intubated Septic encephalopathy Acute kidney injury Bronchoscopydone yesterday. Staph aureus on culture and Fungal pending Repeat chest x-ray in am, or sooner if respiratory symptoms worsen repeat bronchoscopy if worsening washing sent for culture continue abx Supervisory-Addendum Brief Verification & Attestation Participated in pt care: history, MDM, physical Personally performed: exam, history, MDM, supervision of care Care discussed with: Medical Student Procedures: n/a Results interpretation: Verified all documentation Verification and Attestation of Medical Student E/M Service A medical student performed and documented this service in my presence. I reviewed and verified all information documented by the medical student and made modifications to such information, when appropriate. I personally performed the physical exam and medical decision making. [place], Jan 11, 2022,13:38 DEREK LAZCANO Jan 11, 2022 07:39 SOUTH MARIE DO Jan 11, 2022 13:38
--- NOTE | 2022-01-11 07:42 | Progress Note ---
PRESTON MAI 01/11/22 0742: Subjective Date Seen by a Provider: Jan 11, 2022 Time Seen by a Provider: 08:00 Subjective/Events-last exam Patient is currently intubated and heavily sedated Per RN: Patient is unable to lay in right lateral decubitus position due to desaturation They are suctioning large amounts of mucus/secretions every couple hours Patient has gained 7 kg since yesterday Lung function diminishing O2 saturation is declining Focused Exam Lactate Level 01/08/22 12:50: Lactic Acid Level 1.38 Time of Focused Exam: 214 Objective Exam Last Set of Vital Signs Vital Signs Date Time Temp Pulse Resp B/P (MAP) Pulse Ox O2 Delivery O2 Flow Rate FiO2 01/11/22 06:00 100 20 95/65 (75) 94 Mechanical Ventilator 50.00 01/11/22 04:00 60 01/11/22 02:00 37.5 Capillary Refill : Less Than 3 Seconds I&O Intake and Output 01/11/22 00:00 Intake Total 3031 ml Output Total 1775 ml Balance 1256 ml Intake Oral 0 ml IV Total 2130 ml Tube Feeding 786 ml Other 115 ml Output Urine Total 1775 ml General: Severe Distress, Other (Intubated, heavily sedated) HEENT: Atraumatic, Mucous Memb Moist/Goodell Neck: Supple, No JVD Lungs: Other (All lung ruiz diminished) Heart: Regular Rate, Normal S1, Normal S2 Abdomen: Normal Bowel Sounds, Soft Extremities: No Clubbing, No Cyanosis Skin: No Rashes, No Breakdown Neuro: Normal Tone Results Lab Laboratory Tests 01/10/22 07:38: Glucometer 153H 01/10/22 11:22: Glucometer 130H 01/10/22 18:08: Glucometer 98 01/10/22 21:11: Glucometer 121H 01/11/22 00:03: Glucometer 81 01/11/22 04:43: Glucometer 163H 01/11/22 05:40: White Blood Count 29.1H, Red Blood Count 3.19L, Hemoglobin 9.5L, Hematocrit 29L, Mean Corpuscular Volume 89, Mean Corpuscular Hemoglobin 30, Mean Corpuscular Hemoglobin Concent 33, Red Cell Distribution Width 16.4H, Platelet Count 175, Mean Platelet Volume 9.2, Immature Granulocyte % (Auto) 8, Neutrophils (%) (Auto) 75, Lymphocytes (%) (Auto) 5L, Monocytes (%) (Auto) 11, Eosinophils (%) (Auto) 0, Basophils (%) (Auto) 1, Neutrophils # (Auto) 21.7H, Lymphocytes # (Auto) 1.6, Monocytes # (Auto) 3.3H, Eosinophils # (Auto) 0.0, Basophils # (Auto) 0.2H, Immature Granulocyte # (Auto) 2.4H, Sodium Level 140, Potassium Level 4.0, Chloride Level 114H, Carbon Dioxide Level 19L, Anion Gap 7, Blood Urea Nitrogen 14, Creatinine 0.58L, Estimat Glomerular Filtration Rate 103, BUN/Creatinine Ratio 24, Glucose Level 162H, Calcium Level 8.2L, Corrected Calcium 9.5, Phosphorus Level 2.8, Magnesium Level 1.5L, Total Bilirubin 0.4, Direct Bilirubin 0.3, Indirect Bilirubin 0.1, Aspartate Amino Transf (AST/SGOT) 42H, Alanine Aminotransferase (ALT/SGPT) 27, Alkaline Phosphatase 106, Total Protein 5.2L, Albumin 2.4L 01/11/22 06:05: Blood Gas Puncture Site R RAD, Blood Gas Patient Temperature 98.7, Arterial Blood pH 7.21*L, Arterial Blood Partial Pressure CO2 60H, Arterial Blood Partial Pressure O2 73L, Arterial Blood HCO3 23, Arterial Blood Total CO2 24.6, Arterial Blood Oxygen Saturation 93L, Arterial Blood Base Excess -4.0L, Wiley Test NO, Blood Gas Ventilator Setting YES, Blood Gas Inspired Oxygen 50% Microbiology 01/08/22 Gram Stain - Final, Resulted 01/08/22 Sputum Culture - Preliminary, Resulted Staphylococcus aureus 01/08/22 Urine Culture - Final, Complete NO GROWTH 01/07/22 Blood Culture - Preliminary, Resulted No growth Assessment/Plan Assessment/Plan Assess & Plan/Chief Complaint Septic shock Continue with Vancomycin and cefepime Administer pressors as needed Monitor Vitals Continue IV fluids MRSA pneumonia Continue Vancomycin Administer one time dose of lasix 40 mg with potassium 20 mg Acute respiratory failure with hypoxia and hypercapnia Currently intubated Monitor ABG Bronchoscopy performed-No pathology found, just erythema Endotracheally intubated Monitor ABG's Septic encephalopathy Continue spetic shock management Supportive Care Acute kidney injury Continue IV fluids DVT prophylaxis Administer Lovenox Clinical Quality Measures Admission Status Admission Dx Bilateral Pneumonia- Awaiting Blood Cultures Started on Cefepime and Doxycycline Continue Supportive Care Acute Respiratory Failure- Started on BiPAP Manage Pneumonia Monitor O2- consider intubation AMS-Possible secondary to Polypharmacy Review medication list Start Narcan Drip Septic Shock- Antibiotics started Continue fluids started Pressers administered JULIAN- Creatinine Currently 1.35 Continue IV fluids Hyponatremia- Continue IV fluids Consider replacement Hypoalbuminemia- Currently NPO but will supplement when able Elevated Creatine Kinase Continue IV fluids Dyspepsia/GERD Start pantoprazole BID ROBERT DUKES DO 01/11/22 1250: Supervisory-Addendum Brief Verification & Attestation Participated in pt care: history, physical Personally performed: exam, supervision of care Care discussed with: Medical Student Procedures: n/a Results interpretation: Verified all documentation Patient seen and assessed. Sedated on ventilator. Events of weekend reviewed and discussed with nurse. Will given lasix with potassium due to increase in weight of 7.6kg since yesterday. On pressors so nurse will monitor BPs with lasix and adjust levophed up if needed. Now on Vanc due to MRSA and vent setting adjusted this morning per critical care after blood gas. Condition guarded. PRESTON MAI Jan 11, 2022 07:42 ROBERT DUKES DO Jan 11, 2022 12:50
[2022-01-11] MEDS: PANTOPRAZOLE 40 MG (PROTONIX) VIAL IV SCH ×2 (07:47→20:31)
[2022-01-11] MEDS: MUPIROCIN 2% OINT 22 GM (BACTROBAN) TUBE NSEACH SCH ×2 (07:48→20:31)
--- NOTE | 2022-01-11 08:05 | Diagnostic Imaging Report ---
Indication: Respiratory distress. Compared with exam one day prior. Findings: ET tube mid thoracic trachea, OG catheter in its lucent port in the stomach. Severe patchy nodular right lung consolidations and more diffuse interstitial process in the left lung are unchanged. There is no pneumothorax. A right PICC line at the lower SVC is stable. Impression: No real change in extensive nodular multifocal right lung consolidations, diffuse left lung interstitial opacities and stable support apparatus. Dictated by: Dictated on workstation # [id number]
[2022-01-11] MEDS ORDERED: FUROSEMIDE 40 MG/4 ML INJ (LASIX) IVP NR (08:30)
[2022-01-11] MEDS: VANCOMYCIN 1 GM/NS 250 ML IVPB IV SCH ×4 (08:40→20:31)
[2022-01-11] MEDS: ENOXAPARIN 40 MG/0.4 ML (LOVENOX) SYR SC SCH (09:13)
[2022-01-11 09:22] LABS: ABG BASE EXCESS -4.4 MMOL/L (-2.5-2.5); ABG OXYGEN SATURATION 95 % (94-100); ABG PCO2 53 MMHG (35-45); ABG PO2 71 MMHG (79-93); ABG TCO2 23.7 MMOL/L (21.0-31.0)
[2022-01-11 09:25] LABS: ABG PH 7.24 (7.37-7.43)
[2022-01-11 09:26] LABS: ALLENS TEST YES-POS; PATIENT TEMP 96.9; VENTILATOR YES
--- NOTE | 2022-01-11 09:43 | Tele-ICU Progress Note ---
Subjective Date Seen by a Provider: Jan 11, 2022 Time Seen by a Provider: 09:42 Subjective/Events-last exam (Tele-ICU Physician , Progress Note ) Available chart/ vitals / labs / Images reviewed Video assessment done using teleICU camera, rest of exam as per RN Discussed with RN Events overnight : Afebrile hemodynamically stable Respiratory - 55 % I/O = + Drips: Pressors- no VENT SETTINGS and ABG reviewed Sedation: RASS discussed with RN , NOT CANDIDATE for SBTreviewed possible contraindications including Cardiovascular Stability /Sedation Score / FI02/PEEP / ABG / CXR/ secretions Consultants: Hospital course: (01/08) 61yr F admitted for Septic Shock, Pneumonia, Acute Respiratory Failure w ith Hypoxia. Intubated (01/10)bronch Acute resp failure - with PNA - intubated 01/10 -AC 25 400 55% +8 septic shock - on levo Encephalopaty ( secondary to overdose vs hyponatremia. - CTH neg - Had moderate response to narcan on admission - now on precedex 1.5 + fentanyl 250 Hyponatremia ? SAIDH with PNA -- Na 115 on presentation 01/07 normalised by 01/09 Multilobar Right>>>L PNA ( neg lefionella , neg flu and covid - s/p FOB 01/10 - cx + MRSA presumed -sputum cx 01/08 - MRSA om cefepime and vanco Mild coagulopath y - INR 1.6 --> inr 2.2 JULIAN- RESOLVED - improving with IVF s/p fall 01/07 - web knitter scans in ER neg --> d/c home Lines : r PICC , (Central Line Necessity Reviewed) Peña: + OG: Nutrition: TF 40 jevity Analgesia: Anxiety/ delirium VTE Prophylaxis: zina 40 , INR 2.2 Stress Ulcer Prophylaxis: Plans in collaboration with bedside consultants and IM MDs. Discussed with RN to reach out if any questions or concerns additional total of 32 minutes of critical care time was devoted to this patient today, required to treat and/or prevent further deterioration of critical care condition ( as above ) . I am remotely monitoring this patient from another state. I am unable to do the bedside exam, and history/physical and pertinent information is taken from other notes in the computer and bedside staff. I cannot take responsibility for the accuracy of this information. Sepsis Event Evaluation Height, Weight, BMI Height: 5'5.00" Weight: 129lbs. 4.0oz. 58.738533wo; 26.40 BMI Method: Focused Exam Lactate Level 01/08/22 12:50: Lactic Acid Level 1.38 Time of Focused Exam: 214 Exam Exam Patient acknowledged, consented, and participated in this virtual visit which was conducted using real time audio/video Vital Signs Date Time Temp Pulse Resp B/P (MAP) Pulse Ox O2 Delivery O2 Flow Rate FiO2 01/11/22 08:00 98 25 98/69 (79) 95 Mechanical Ventilator 55.00 01/11/22 08:00 36.2 01/11/22 07:54 Mechanical Ventilator 55.00 01/11/22 07:15 106 25 97 55 01/11/22 07:00 100 01/11/22 07:00 101 22 95/62 (73) 96 Mechanical Ventilator 50.00 01/11/22 06:30 102 27 92 55 01/11/22 06:00 100 20 95/65 (75) 94 Mechanical Ventilator 50.00 01/11/22 05:00 107 20 103/64 (77) 93 Mechanical Ventilator 50.00 01/11/22 04:00 Mechanical Ventilator 60 01/11/22 04:00 112 20 130/85 (95) 91 Mechanical Ventilator 50.00 01/11/22 03:07 98 20 96 Mechanical Ventilator 50.00 01/11/22 03:02 99 24 95 60 01/11/22 03:00 98 20 96/63 (75) 94 Mechanical Ventilator 60.00 01/11/22 02:00 37.5 01/11/22 02:00 101 20 97/67 (78) 96 Mechanical Ventilator 60.00 01/11/22 01:00 102 20 94/65 (74) 96 Mechanical Ventilator 60.00 01/11/22 01:00 102 01/11/22 00:06 Mechanical Ventilator 60 01/11/22 00:00 107 20 100/68 (78) 97 Mechanical Ventilator 60.00 01/10/22 23:00 110 20 98/66 (77) 99 Mechanical Ventilator 60.00 01/10/22 22:21 105 20 93 Mechanical Ventilator 60.00 01/10/22 22:10 110 20 89 50 01/10/22 22:00 37.3 01/10/22 22:00 105 20 89/61 (70) 93 Mechanical Ventilator 50.00 01/10/22 21:00 112 20 99/66 (76) 94 Mechanical Ventilator 50.00 01/10/22 20:00 105 20 95/69 (76) 97 Mechanical Ventilator 50.00 01/10/22 19:59 Mechanical Ventilator 60 01/10/22 19:34 106 93/66 01/10/22 19:34 106 93/66 01/10/22 19:14 105 22 95 50 01/10/22 19:00 106 01/10/22 19:00 106 20 96/62 (72) 94 Mechanical Ventilator 50.00 01/10/22 18:18 Mechanical Ventilator 50.00 01/10/22 18:00 111 18 96/65 (75) 95 Mechanical Ventilator 40.00 01/10/22 18:00 38.7 01/10/22 17:09 39.7 01/10/22 17:00 114 17 100/68 (79) 92 Mechanical Ventilator 40.00 01/10/22 16:37 39.8 01/10/22 16:00 Mechanical Ventilator 60 01/10/22 16:00 115 15 98/68 (78) 91 Mechanical Ventilator 40.00 01/10/22 15:16 Mechanical Ventilator 40.00 01/10/22 15:03 110 22 94 50 01/10/22 15:00 110 16 94/67 (76) 94 Mechanical Ventilator 50.00 01/10/22 14:00 112 10 93/64 (74) 95 Mechanical Ventilator 50.00 01/10/22 13:57 112 92/59 01/10/22 13:48 Mechanical Ventilator 50.00 01/10/22 13:00 120 20 92/59 (70) 97 Mechanical Ventilator 35.00 01/10/22 12:48 100 01/10/22 12:42 99 75/50 01/10/22 12:00 101 16 75/50 (58) 94 Mechanical Ventilator 35.00 01/10/22 12:00 Mechanical Ventilator 60 01/10/22 11:51 38.1 01/10/22 11:27 120 29 92 50 01/10/22 11:20 24 01/10/22 11:00 106 17 72/49 (57) 95 Mechanical Ventilator 35.00 01/10/22 10:55 101 83/61 01/10/22 10:00 108 14 87/61 (70) 91 Mechanical Ventilator 35.00 I & O 01/11/22 07:00 Intake Total 2981 ml Output Total 1375 ml Balance 1606 ml Height & Weight Height: 5'5.00" Weight: 129lbs. 4.0oz. 58.362133al; 26.40 BMI Method: General Appearance: No Apparent Distress, WD/WN, Other (intubated and sedated) HEENT: PERRL/EOMI, Normal ENT Inspection, Other (Dry oropharynx) Neck: Non Tender, Supple Respiratory: No Respiratory Distress, Decreased Breath Sounds, Other (intubated and mechanically ventilated) Cardiovascular: Regular Rate, Rhythm, No Murmur Capillary Refill: Less Than 3 Seconds Peripheral Pulses: 2+ Radial Pulses (L) Gastrointestinal: soft, distended (minimal) Extremity: Normal Inspection, No Pedal Edema Neurologic/Psychiatric: Other (sedated) Skin: Normal Color, Warm/Dry Lymphatic: No Adenopathy Results Lab Laboratory Tests 01/09/22 12:23 01/10/22 04:40 01/11/22 05:40 Assessment/Plan Assessment/Plan 1 LOLIS KUMAR MD Jan 11, 2022 09:43
[2022-01-11] MEDS: VASOPRESSIN INJECTION 20 UNIT in NS (IVPB) 100 ML IV SCH ×2 (10:02→20:22)
[2022-01-11] MEDS: ACETAMINOPHEN 325 MG TABLET NG PRN (16:56)
[2022-01-11 21:00] VITALS: BP 117/79
[2022-01-12 02:23] VITALS: BP 111/67
[2022-01-12 03:39] LABS: BASOPHILS # (AUTO) 0.1 10^3/uL (0.0-0.1); BASOPHILS % (AUTO) 0 % (0-10); EOSINOPHILS % (AUTO) 0 % (0-10); HEMOGLOBIN 9.3 g/dL (11.5-16.0); LYMPHOCYTES % (AUTO) 6 % (12-44); MEAN PLATELET VOLUME 9.5 fL (9.0-12.2)
[2022-01-12 03:41] LABS: HEMATOCRIT 28 % (35-52); LYMPHOCYTES # (AUTO) 1.7 10^3/uL (1.0-4.0); MEAN CORPUSCULAR HEMOGLOBIN 30 pg (25-34); MEAN CORPUSCULAR HGB CONC 34 g/dL (32-36); MEAN CORPUSCULAR VOLUME 89 fL (80-99); MONOCYTES # (AUTO) 2.9 10^3/uL (0.0-1.0); MONOCYTES % (AUTO) 11 % (0-12); NEUTROPHILS # (AUTO) 20.5 10^3/uL (1.8-7.8); NEUTROPHILS % (AUTO) 76 % (42-75); PLATELET COUNT 158 10^3/uL (130-400)
[2022-01-12] MEDS: NS IV 1000 ML 1,000 ML IV SCH ×3 (03:45→23:50)
[2022-01-12 03:58] LABS: ALBUMIN 2.3 GM/DL (3.2-4.5); BILIRUBIN,DIRECT 0.2 MG/DL (0.0-0.3); BILIRUBIN,INDIRECT 0.2 MG/DL; BILIRUBIN,TOTAL 0.4 MG/DL (0.1-1.0); CALCIUM 8.2 MG/DL (8.5-10.1); CREATININE SERUM 0.6 MG/DL (0.60-1.30); MAGNESIUM 1.4 MG/DL (1.6-2.4); PHOSPHORUS 1.8 MG/DL (2.3-4.7); POTASSIUM 4.1 MMOL/L (3.6-5.0); TOTAL PROTEIN 5.1 GM/DL (6.4-8.2)
[2022-01-12] MEDS: NOREPINEPHRINE 8 MG/250 ML 250 ML IV SCH ×2 (04:00→12:56)
[2022-01-12 04:14] LABS: INR 1.6 (0.8-1.4); PROTHROMBIN TIME PATIENT 19.3 SEC (12.2-14.7)
[2022-01-12] MEDS: POTASSIUM CL 10MEQ/50ML IVPB 50 ML IV SCH ×2 (04:17→09:22)
[2022-01-12] MEDS: KCL 20 MEQ TAB (K-DUR) PO SCH (04:18)
[2022-01-12] MEDS: MAGNESIUM 1 GM/100 ML IVPB 100 ML IV SCH ×3 (04:18→06:17)
[2022-01-12] MEDS: fentaNYL DRIP PRE-MIX 250 ML IV SCH ×4 (05:25→23:49)
[2022-01-12 05:43] LABS: ABG BASE EXCESS -0.7 MMOL/L (-2.5-2.5); ABG OXYGEN SATURATION 98 % (94-100); ABG PCO2 51 MMHG (35-45); ABG PO2 90 MMHG (79-93); ABG TCO2 25.9 MMOL/L (21.0-31.0)
[2022-01-12 05:46] LABS: ABG PH 7.31 (7.37-7.43); ALLENS TEST YES-POS; INSPIRED O2 50%; PATIENT TEMP 38.3; VENTILATOR YES
[2022-01-12] MEDS: CEFEPIME INJECTION 1,000 MG in NS (IVPB) 50 ML IV SCH ×4 (06:17→23:50)
[2022-01-12] MEDS: CATHETER FLUSH 10 ML SYR IVP SCH ×3 (06:18→20:10)
[2022-01-12] MEDS: DexMEDEtomidine 250 ML DRIP 250 ML IV SCH ×2 (06:23→23:49)
[2022-01-12 06:47] VITALS: BP 114/76
--- NOTE | 2022-01-12 06:54 | Occ Therapy Progress Note ---
Therapy Progress Note Pt is currently intubated. OT to monitor pt's status then will initiate treatment when pt is medically stable and able to actively participate in skilled therapy. SAI MIJARES Jan 12, 2022 06:54
--- NOTE | 2022-01-12 07:16 | Physical Therapy Progress Note ---
Therapy Progress Note Pt is currently intubated. PT to monitor pt's status then will initiate treatment when pt is medically stable and able to actively participate in skilled therapy. JUAN ALBERTO PAZ PT Jan 12, 2022 07:16
--- NOTE | 2022-01-12 07:34 | Progress Note ---
PRESTON MAI 01/12/22 0734: Subjective Date Seen by a Provider: Jan 12, 2022 Time Seen by a Provider: 08:00 Subjective/Events-last exam Patient is still intubated and sedated Status unchanged Patient has gained 2 kg since yesterday Is on parenteral nutrition currently Fi02 is at 50% today ABG's are improving Patient will open eyes to hearing name Patient still has not had bowel movement Labs reviewed Focused Exam Time of Focused Exam: 214 Objective Exam Last Set of Vital Signs Vital Signs Date Time Temp Pulse Resp B/P (MAP) Pulse Ox O2 Delivery O2 Flow Rate FiO2 01/12/22 06:47 124 27 94 50 01/12/22 06:00 115/72 (86) Mechanical Ventilator 50.00 01/12/22 03:00 38.3 Capillary Refill : Less Than 3 Seconds I&O Intake and Output 01/12/22 00:00 Intake Total 4396 ml Output Total 5480 ml Balance -1084 ml Intake Oral 0 ml IV Total 3400 ml Tube Feeding 876 ml Other 120 ml Output Urine Total 5480 ml General: Severe Distress, Other (Chronically ill, eyes open upon hearing name) HEENT: Atraumatic, Mucous Memb Moist/[place] Neck: Supple, Other (Left JVD) Lungs: Other (Decreaed breath sounds in all lobes) Heart: Normal S1, Normal S2, Other (Tachycardic) Abdomen: Soft, Other (Distended, hypoactive bowel sounds) Extremities: No Clubbing, No Cyanosis, Other (+1 pedal edema, bilateral swelling in upper extermity ) Skin: No Rashes, No Breakdown Neuro: Other (Currently heavily sedated) Results Lab Laboratory Tests 01/11/22 07:40: Vancomycin Level Trough 8.9L 01/11/22 07:54: Glucometer 115H 01/11/22 09:17: Blood Gas Puncture Site LT RAD, Blood Gas Patient Temperature 96.9, Arterial Blood pH 7.24*L, Arterial Blood Partial Pressure CO2 53H, Arterial Blood Partial Pressure O2 71L, Arterial Blood HCO3 22L, Arterial Blood Total CO2 23.7, Arterial Blood Oxygen Saturation 95, Arterial Blood Base Excess -4.4L, Wiley Test YES-POS, Blood Gas Ventilator Setting YES, Blood Gas Inspired Oxygen 55% 01/11/22 12:34: Glucometer 168H 01/11/22 16:00: Glucometer 150H 01/11/22 20:04: Glucometer 127H 01/12/22 00:03: Glucometer 140H 01/12/22 03:05: White Blood Count 27.0H, Red Blood Count 3.09L, Hemoglobin 9.3L, Hematocrit 28L, Mean Corpuscular Volume 89, Mean Corpuscular Hemoglobin 30, Mean Corpuscular Hemoglobin Concent 34, Red Cell Distribution Width 16.9H, Platelet Count 158, Mean Platelet Volume 9.5, Immature Granulocyte % (Auto) 6, Neutrophils (%) (Auto) 76H, Lymphocytes (%) (Auto) 6L, Monocytes (%) (Auto) 11, Eosinophils (%) (Auto) 0, Basophils (%) (Auto) 0, Neutrophils # (Auto) 20.5H, Lymphocytes # (Auto) 1.7, Monocytes # (Auto) 2.9H, Eosinophils # (Auto) 0.0, Basophils # (Auto) 0.1, Immature Granulocyte # (Auto) 1.7H, Percent Immature Platelet Fraction 2.4, Sodium Level 146H, Potassium Level 4.1, Chloride Level 115H, Carbon Dioxide Level 21, Anion Gap 10, Blood Urea Nitrogen 12, Creatinine 0.60, Estimat Glomerular Filtration Rate 102, BUN/Creatinine Ratio 20, Glucose Level 131H, Calcium Level 8.2L, Corrected Calcium 9.6, Phosphorus Level 1.8L, Magnesium Level 1.4L, Total Bilirubin 0.4, Direct Bilirubin 0.2, Indirect Bilirubin 0.2, Aspartate Amino Transf (AST/SGOT) 43H, Alanine Aminotransferase (ALT/SGPT) 37, Alkaline Phosphatase 99, Total Protein 5.1L, Albumin 2.3L 01/12/22 04:00: Prothrombin Time 19.3H, INR Comment 1.6H 01/12/22 05:37: Blood Gas Puncture Site RR, Blood Gas Patient Temperature 38.3, Arterial Blood pH 7.31*L, Arterial Blood Partial Pressure CO2 51H, Arterial Blood Partial Pressure O2 90, Arterial Blood HCO3 25, Arterial Blood Total CO2 25.9, Arterial Blood Oxygen Saturation 98, Arterial Blood Base Excess -0.7, Wiley Test YES-POS, Blood Gas Ventilator Setting YES, Blood Gas Inspired Oxygen 50% Microbiology 01/10/22 Gram Stain - Final, Resulted 01/10/22 Bronchial Culture - Preliminary, Resulted Staphylococcus aureus 01/10/22 Fungal Culture 1 - Preliminary, Resulted 01/08/22 Urine Culture - Final, Complete NO GROWTH 01/07/22 Blood Culture - Preliminary, Resulted No growth Assessment/Plan Assessment/Plan Assess & Plan/Chief Complaint Septic shock Continue with Vancomycin and cefepime Norepinenephrine currently on drip Monitor Vitals Continue IV fluids MRSA pneumonia Continue Vancomycin Chest x-ray unchanged on 01-11-2022 Awating Fungal Path report Begin Eraxis loading dose Administer one time dose of lasix 40 mg with potassium 20 mg Acute respiratory failure with hypoxia Currently intubated Monitor ABG Bronchoscopy performed-No pathology found, just erythema Endotracheally intubated Monitor ABG's Abdominal distention/Constipation Obtain X-ray KUB Coagulopathy- INR 1.6 Hypernatremia Septic encephalopathy Continue spetic shock management Supportive Care Acute kidney injury-Resolved Continue IV fluids DVT prophylaxis Administer Lovenox Hypoalbuinemia Currently on parenteral nutrition Hypophosphatemia On replacement per protocol Hypomagnesemia On replacement per protocol Clinical Quality Measures Admission Status Admission Dx Bilateral Pneumonia- Awaiting Blood Cultures Started on Cefepime and Doxycycline Continue Supportive Care Acute Respiratory Failure- Started on BiPAP Manage Pneumonia Monitor O2- consider intubation AMS-Possible secondary to Polypharmacy Review medication list Start Narcan Drip Septic Shock- Antibiotics started Continue fluids started Pressers administered JULIAN- Creatinine Currently 1.35 Continue IV fluids Hyponatremia- Continue IV fluids Consider replacement Hypoalbuminemia- Currently NPO but will supplement when able Elevated Creatine Kinase Continue IV fluids Dyspepsia/GERD Start pantoprazole BID ROBERT DUKES DO 01/12/22 1243: Supervisory-Addendum Brief Verification & Attestation Participated in pt care: history, physical Personally performed: exam, history, supervision of care Care discussed with: Medical Student Procedures: n/a Results interpretation: Verified all documentation Patient seen and assessed. I did talk to son last night and they want aggressive management. Patient does open her eyes today. Did diurese well with IV lasix yesterday. PRESTON MAI Jan 12, 2022 07:34 ROBERT DUKES DO Jan 12, 2022 12:43
--- NOTE | 2022-01-12 07:49 | Progress Note - Surgery ---
DEREK LAZCANO 01/12/22 0749: Subjective Date Seen by a Provider: Jan 12, 2022 Subjective/Events-last exam Patient is still intubated and sedated. Status unchanged. Pt able to tolerate right lateral decubitus position at this time. Patient has gained 2 kg since yesterday and Is on parenteral nutrition currently. Pt has not had bowel movement since 01/07. Family discussed possible pulmonology consult if patients status has not improved. Labs reviewed, pending results on recent chest x-ray Chest x-ray 01/11 - No real change in extensive nodular multifocal right lung c onsolidations, diffuse left lung interstitial opacities and stable support apparatus Chest x-ray 01/10 post bronch - Grossly unchanged multifocal bilateral lung consolidation Chest-xray 01/10 - Increased opacities throughout the right lung with slight improved aeration in the left perihilar region. Findings likely represent a combination of atelectasis and infection Focused Exam Time of Focused Exam: 0215 Cardiovascular: JVD Skin: normal color, warm/dry Objective Exam Vital Signs Date Time Temp Pulse Resp B/P (MAP) Pulse Ox O2 Delivery O2 Flow Rate FiO2 01/12/22 06:47 124 27 94 50 01/12/22 06:00 107 25 115/72 (86) 97 Mechanical Ventilator 50.00 01/12/22 05:00 115 25 126/78 (93) 95 Mechanical Ventilator 50.00 01/12/22 04:00 118 25 114/72 (85) 94 Mechanical Ventilator 50.00 01/12/22 04:00 93 Mechanical Ventilator 55 01/12/22 03:00 115 25 121/77 (90) 95 Mechanical Ventilator 50.00 01/12/22 03:00 38.3 01/12/22 02:23 112 25 93 50 01/12/22 02:00 100 25 111/69 (86) 95 Mechanical Ventilator 50.00 01/12/22 01:00 101 25 113/71 (84) 95 Mechanical Ventilator 50.00 01/12/22 01:00 101 01/12/22 00:00 121 25 120/77 (93) 92 Mechanical Ventilator 50.00 01/12/22 00:00 93 Mechanical Ventilator 55 01/11/22 23:00 104 25 108/69 (82) 94 Mechanical Ventilator 50.00 01/11/22 22:00 109 25 112/69 (82) 95 Mechanical Ventilator 50.00 01/11/22 21:00 125 27 93 50 01/11/22 21:00 144 25 117/79 (98) 93 Mechanical Ventilator 50.00 01/11/22 20:21 93 Mechanical Ventilator 55 01/11/22 20:00 37.0 01/11/22 20:00 100 25 97/57 (68) 94 Mechanical Ventilator 50.00 01/11/22 19:00 101 01/11/22 19:00 101 25 93/58 (72) 95 Mechanical Ventilator 50.00 01/11/22 18:07 102 100/65 01/11/22 18:06 101 91/60 01/11/22 18:05 38.4 01/11/22 18:00 102 27 100/65 (77) 94 Mechanical Ventilator 50.00 01/11/22 17:31 38.8 01/11/22 17:29 101 91/60 01/11/22 17:00 101 25 98/64 (75) 94 Mechanical Ventilator 50.00 01/11/22 16:56 38.5 01/11/22 16:00 37.9 01/11/22 16:00 101 25 91/60 (70) 94 Mechanical Ventilator 50.00 01/11/22 16:00 93 Mechanical Ventilator 55 01/11/22 15:18 107 108/65 01/11/22 15:00 107 25 108/65 (79) 95 Mechanical Ventilator 50.00 01/11/22 14:00 110 25 106/67 (80) 95 Mechanical Ventilator 55.00 01/11/22 13:28 103 01/11/22 13:00 103 25 103/70 (81) 97 Mechanical Ventilator 55.00 01/11/22 12:56 102 110/71 01/11/22 12:02 96 85/54 01/11/22 12:02 100 85/54 01/11/22 12:00 36.8 01/11/22 12:00 95 25 110/71 (84) 95 Mechanical Ventilator 55.00 01/11/22 12:00 Mechanical Ventilator 55 01/11/22 11:15 98 97/64 01/11/22 11:15 98 97/64 01/11/22 11:00 102 25 93/63 (73) 94 Mechanical Ventilator 55.00 01/11/22 10:00 98 25 97/64 (75) 95 Mechanical Ventilator 55.00 01/11/22 09:00 95 25 93/63 (73) 95 Mechanical Ventilator 55.00 01/11/22 08:00 Mechanical Ventilator 55 01/11/22 08:00 98 25 98/69 (79) 95 Mechanical Ventilator 55.00 01/11/22 08:00 36.2 01/11/22 07:54 Mechanical Ventilator 55.00 I & O 01/12/22 07:00 Intake Total 4396 ml Output Total 5800 ml Balance -1404 ml Capillary Refill : Less Than 3 Seconds General Appearance: No Apparent Distress, Other (intubated and sedated) HEENT: PERRL/EOMI, Normal ENT Inspection Neck: Normal Inspection, Supple Respiratory: Decreased Breath Sounds, Other (intubated and mechanically ventilated) Cardiovascular: Regular Rate, Rhythm, No JVD, JVD Peripheral Pulses: 2+ Radial Pulses (L) Gastrointestinal: soft, distended (minimal) Extremity: Normal Capillary Refill, Normal Inspection, Swelling Neurologic/Psychiatric: No Alert, No Oriented x3; Other (sedated) Skin: Normal Color, Warm/Dry Lymphatic: No Adenopathy Results Lab Laboratory Tests 01/11/22 07:54: Glucometer 115H 01/11/22 09:17: Blood Gas Puncture Site LT RAD, Blood Gas Patient Temperature 96.9, Arterial Blood pH 7.24*L, Arterial Blood Partial Pressure CO2 53H, Arterial Blood Partial Pressure O2 71L, Arterial Blood HCO3 22L, Arterial Blood Total CO2 23.7, Arterial Blood Oxygen Saturation 95, Arterial Blood Base Excess -4.4L, Wiley Test YES-POS, Blood Gas Ventilator Setting YES, Blood Gas Inspired Oxygen 55% 01/11/22 12:34: Glucometer 168H 01/11/22 16:00: Glucometer 150H 01/11/22 20:04: Glucometer 127H 01/12/22 00:03: Glucometer 140H 01/12/22 03:05: White Blood Count 27.0H, Red Blood Count 3.09L, Hemoglobin 9.3L, Hematocrit 28L, Mean Corpuscular Volume 89, Mean Corpuscular Hemoglobin 30, Mean Corpuscular Hemoglobin Concent 34, Red Cell Distribution Width 16.9H, Platelet Count 158, Mean Platelet Volume 9.5, Immature Granulocyte % (Auto) 6, Neutrophils (%) (Auto) 76H, Lymphocytes (%) (Auto) 6L, Monocytes (%) (Auto) 11, Eosinophils (%) (Auto) 0, Basophils (%) (Auto) 0, Neutrophils # (Auto) 20.5H, Lymphocytes # (Auto) 1.7, Monocytes # (Auto) 2.9H, Eosinophils # (Auto) 0.0, Basophils # (Auto) 0.1, Immature Granulocyte # (Auto) 1.7H, Percent Immature Platelet Fraction 2.4, Sodium Level 146H, Potassium Level 4.1, Chloride Level 115H, Carbon Dioxide Level 21, Anion Gap 10, Blood Urea Nitrogen 12, Creatinine 0.60, Estimat Glomerular Filtration Rate 102, BUN/Creatinine Ratio 20, Glucose Level 131H, Calcium Level 8.2L, Corrected Calcium 9.6, Phosphorus Level 1.8L, Magnesium Level 1.4L, Total Bilirubin 0.4, Direct Bilirubin 0.2, Indirect Bilirubin 0.2, Aspartate Amino Transf (AST/SGOT) 43H, Alanine Aminotransferase (ALT/SGPT) 37, Alkaline Phosphatase 99, Total Protein 5.1L, Albumin 2.3L 01/12/22 04:00: Prothrombin Time 19.3H, INR Comment 1.6H 01/12/22 05:37: Blood Gas Puncture Site RR, Blood Gas Patient Temperature 38.3, Arterial Blood pH 7.31*L, Arterial Blood Partial Pressure CO2 51H, Arterial Blood Partial Pressure O2 90, Arterial Blood HCO3 25, Arterial Blood Total CO2 25.9, Arterial Blood Oxygen Saturation 98, Arterial Blood Base Excess -0.7, Wiley Test YES-POS, Blood Gas Ventilator Setting YES, Blood Gas Inspired Oxygen 50% Microbiology 01/10/22 Gram Stain - Final, Resulted 01/10/22 Bronchial Culture - Preliminary, Resulted Staphylococcus aureus 01/10/22 Fungal Culture 1 - Preliminary, Resulted 01/08/22 Urine Culture - Final, Complete NO GROWTH 01/07/22 Blood Culture - Preliminary, Resulted No growth Assessment/Plan Assessment/Plan Assessment/Plan Septic shock Continue with Vancomycin and cefepime Norepinenephrine currently on drip Monitor Vitals Continue IV fluids MRSA pneumonia Continue Vancomycin Chest x-ray unchanged on 01-11-2022 Awating Fungal Path report Acute respiratory failure with hypoxia and hypercapnia Currently intubated Monitor ABG Bronchoscopy performed-No pathology found, just erythema Endotracheally intubated Monitor ABG's Coagulopathy- INR 1.6 Hypernatremia Septic encephalopathy Continue spetic shock management Supportive Care Acute kidney injury-Resolved Continue IV fluids DVT prophylaxis Administer Lovenox Hypoalbuinemia Currently on parenteral nutrition GABY MARIE DO 01/12/222114: Subjective Time Seen by a Provider: 13:55 Subjective/Events-last exam Patient remains intubated sedated. Appears to be comfortable. Febrile. Significant secretions. No family at bedside at this time. Abdominal x-ray with moderate to large volume of stool in the colon suggestive of constipation. Chest x-ray with stable patchy opacities right midlung stable diffuse interstitial opacities. Objective Exam General Appearance: No Apparent Distress, Other (intubated and sedated) HEENT: PERRL/EOMI, Normal ENT Inspection Neck: Normal Inspection, Supple Respiratory: Decreased Breath Sounds, Other (intubated and mechanically venti lated) Cardiovascular: Regular Rate, Rhythm, No JVD Gastrointestinal: soft, distended (minimal) Extremity: Normal Capillary Refill, Normal Inspection, Swelling Neurologic/Psychiatric: No Alert, No Oriented x3; Other (sedated) Skin: Normal Color, Warm/Dry Lymphatic: No Adenopathy Assessment/Plan Assessment/Plan Assessment/Plan Septic shock MRSA pneumonia Acute respiratory failure with hypoxia and hypercapnia Endotracheally intubated Septic encephalopathy Acute kidney injury Staph aureus on culture and Fungal prelim with nevin Repeat chest x-ray in am, or sooner if respiratory symptoms worsen considering repeat bronchoscopy washing sent for culture continue abx/eraxis Supervisory-Addendum Brief Verification & Attestation Participated in pt care: history, MDM, physical Personally performed: exam, history, MDM, supervision of care Care discussed with: Medical Student Procedures: n/a Results interpretation: Verified all documentation Verification and Attestation of Medical Student E/M Service A medical student performed and documented this service in my presence. I reviewed and verified all information documented by the medical student and made modifications to such information, when appropriate. I personally performed the physical exam and medical decision making. Gaby Mraie, Jan 12, 2022,21:18 DEREK LAZCANO Jan 12, 2022 07:49 GABY MARIE DO Jan 12, 2022 21:15
[2022-01-12] MEDS: ACETAMINOPHEN 325 MG TABLET NG PRN ×2 (07:51→13:55)
[2022-01-12] MEDS: PANTOPRAZOLE 40 MG (PROTONIX) VIAL IV SCH ×2 (07:51→20:08)
[2022-01-12] MEDS: VANCOMYCIN 1 GM/NS 250 ML IVPB IV SCH ×4 (07:52→20:09)
[2022-01-12] MEDS: MUPIROCIN 2% OINT 22 GM (BACTROBAN) TUBE NSEACH SCH ×2 (08:13→20:09)
[2022-01-12] MEDS ORDERED: FUROSEMIDE 40 MG/4 ML INJ (LASIX) IVP NR (08:30)
--- NOTE | 2022-01-12 08:48 | Diagnostic Imaging Report ---
EXAMINATION: Chest 1 view HISTORY: Intubation COMPARISON: 01/11/2022 FINDINGS: Heart size and pulmonary vasculature are normal. Medical support lines and tubes are unchanged. Stable patchy opacities within the right lung. Stable diffuse interstitial opacities within both lungs. No pleural effusion or pneumothorax. The osseous structures are intact. IMPRESSION: 1. Stable patchy opacities within the right midlung. Stable diffuse interstitial opacities. 2. Medical support lines and tubes are unchanged. Dictated by: Dictated on workstation # [id number]
[2022-01-12] MEDS ORDERED: ANIDULAFUNGIN INJECTION 200 MG in NS (IVPB) 250 ML IV ONE (09:00)
[2022-01-12] MEDS ORDERED: ALBUMIN 25% 25 GM/100 ML 50 ML IV ONE (09:00)
--- NOTE | 2022-01-12 09:12 | Diagnostic Imaging Report ---
REASON FOR EXAM: Constipation. COMPARISON: None TECHNIQUE: frontal supine view of the abdomen FINDINGS: Enteric tube is seen with the tip overlying the mid stomach. The bowel gas pattern is nondistended. No large collection of free intraperitoneal air is seen. A moderate to large amount of gas and fecal material are present in the colon. No abnormal extraosseous calcifications are present. The osseous structures are age-appropriate. IMPRESSION: Moderate to large volume of stool in the colon suggestive of constipation. Dictated by: Dictated on workstation # [id number]
--- NOTE | 2022-01-12 09:15 | Tele-ICU Progress Note ---
Subjective Date Seen by a Provider: Jan 12, 2022 Time Seen by a Provider: 09:15 Subjective/Events-last exam (Tele-ICU Physician , Progress Note ) Available chart/ vitals / labs / Images reviewed Video assessment done using teleICU camera, rest of exam as per RN Discussed with RN Events overnight : FEBRILE hemodynamically stable Respiratory - 55 % I/O = neg 1 l Drips: Pressors- no VENT SETTINGS and ABG reviewed Sedation: RASS -2 discussed with RN , fent 275 precedex 1.5 - open eyes NOT CANDIDATE for SBTreviewed possible contraindications including Cardiovascular Stability /Sedation Score / FI02/PEEP / ABG / CXR/ secretions Consultants: Hospital course: (01/08) 61yr F admitted for Septic Shock, Pneumonia, Acute Respiratory Failure with Hypoxia. Intubated (01/10)bronch Acute resp failure - with PNA - intubated 01/10 -AC 25 400 50% +8 - acidosi is improving - CPM secretions abundunt - conmt nebs -gentle diuresis septic shock - on levo on/off Hyponatremia ? SAIDH with PNA -- Na 115 on presentation 01/07 normalised by 01/09 - 60 cc q4 TF h2o Multilobar Right>>>L PNA ( neg lefionella , neg flu and covid - s/p FOB 01/10 - cx + MRSA presumed -sputum cx 01/08 - MRSA -on cefepime and vanco - Eraxis 01/12 Mild coagulopath y - INR 1.6 --> inr 2.2 -> improved Encephalopaty ( secondary to overdose vs hyponatremia. 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 Discussed with RN to reach out if any questions or concerns additional total of 32 minutes of critical care time was devoted to this patient today, required to treat and/or prevent further deterioration of critical care condition ( as above ) . I am remotely monitoring this patient from another state. I am unable to do the bedside exam, and history/physical and pertinent information is taken from other notes in the computer and bedside staff. I cannot take responsibility for the accuracy of this information. Sepsis Event Evaluation Height, Weight, BMI Height: 5'5.00" Weight: 129lbs. 4.0oz. [id number]; 26.60 BMI Method: Focused Exam Time of Focused Exam: 214 Exam Exam Patient acknowledged, consented, and participated in this virtual visit which was conducted using real time audio/video Vital Signs Date Time Temp Pulse Resp B/P (MAP) Pulse Ox O2 Delivery O2 Flow Rate FiO2 01/12/22 08:53 114 120/77 01/12/22 08:50 38.2 01/12/22 08:50 38.2 01/12/22 08:00 96 Mechanical Ventilator 50 01/12/22 08:00 38.8 01/12/22 07:51 38.8 01/12/22 07:43 128 132/80 01/12/22 07:26 111 01/12/22 06:47 124 27 94 50 01/12/22 06:00 107 25 115/72 (86) 97 Mechanical Ventilator 50.00 01/12/22 05:00 115 25 126/78 (93) 95 Mechanical Ventilator 50.00 01/12/22 04:00 118 25 114/72 (85) 94 Mechanical Ventilator 50.00 01/12/22 04:00 93 Mechanical Ventilator 55 01/12/22 03:00 115 25 121/77 (90) 95 Mechanical Ventilator 50.00 01/12/22 03:00 38.3 01/12/22 02:23 112 25 93 50 01/12/22 02:00 100 25 111/69 (86) 95 Mechanical Ventilator 50.00 01/12/22 01:00 101 25 113/71 (84) 95 Mechanical Ventilator 50.00 01/12/22 01:00 101 01/12/22 00:00 121 25 120/77 (93) 92 Mechanical Ventilator 50.00 01/12/22 00:00 93 Mechanical Ventilator 55 01/11/22 23:00 104 25 108/69 (82) 94 Mechanical Ventilator 50.00 01/11/22 22:00 109 25 112/69 (82) 95 Mechanical Ventilator 50.00 01/11/22 21:00 125 27 93 50 01/11/22 21:00 144 25 117/79 (98) 93 Mechanical Ventilator 50.00 01/11/22 20:21 93 Mechanical Ventilator 55 01/11/22 20:00 37.0 01/11/22 20:00 100 25 97/57 (68) 94 Mechanical Ventilator 50.00 01/11/22 19:00 101 01/11/22 19:00 101 25 93/58 (72) 95 Mechanical Ventilator 50.00 01/11/22 18:07 102 100/65 01/11/22 18:06 101 91/60 01/11/22 18:05 38.4 01/11/22 18:00 102 27 100/65 (77) 94 Mechanical Ventilator 50.00 01/11/22 17:31 38.8 01/11/22 17:29 101 91/60 01/11/22 17:00 101 25 98/64 (75) 94 Mechanical Ventilator 50.00 01/11/22 16:56 38.5 01/11/22 16:00 37.9 01/11/22 16:00 101 25 91/60 (70) 94 Mechanical Ventilator 50.00 01/11/22 16:00 93 Mechanical Ventilator 55 01/11/22 15:18 107 108/65 01/11/22 15:00 107 25 108/65 (79) 95 Mechanical Ventilator 50.00 01/11/22 14:00 110 25 106/67 (80) 95 Mechanical Ventilator 55.00 01/11/22 13:28 103 01/11/22 13:00 103 25 103/70 (81) 97 Mechanical Ventilator 55.00 01/11/22 12:56 102 110/71 01/11/22 12:02 96 85/54 01/11/22 12:02 100 85/54 01/11/22 12:00 36.8 01/11/22 12:00 95 25 110/71 (84) 95 Mechanical Ventilator 55.00 01/11/22 12:00 Mechanical Ventilator 55 01/11/22 11:15 98 97/64 01/11/22 11:15 98 97/64 01/11/22 11:00 102 25 93/63 (73) 94 Mechanical Ventilator 55.00 01/11/22 10:00 98 25 97/64 (75) 95 Mechanical Ventilator 55.00 I & O 01/12/22 07:00 Intake Total 4396 ml Output Total 5800 ml Balance -1404 ml Height & Weight Height: 5'5.00" Weight: 129lbs. 4.0oz. 58.398058ha; 26.60 BMI Method: General Appearance: No Apparent Distress, Other (intubated and sedated) HEENT: PERRL/EOMI, Normal ENT Inspection Neck: Normal Inspection, Supple Respiratory: Decreased Breath Sounds, Other (intubated and mechanically ventilated) Cardiovascular: Regular Rate, Rhythm, No JVD, JVD Capillary Refill: Less Than 3 Seconds Peripheral Pulses: 2+ Radial Pulses (L) Gastrointestinal: soft, distended (minimal) Extremity: Normal Capillary Refill, Normal Inspection, Swelling Neurologic/Psychiatric: No Alert, No Oriented x3; Other (sedated) Skin: Normal Color, Warm/Dry Lymphatic: No Adenopathy Results Lab Laboratory Tests 01/11/22 05:40 01/12/22 03:05 Assessment/Plan Assessment/Plan 1 LOLIS KUMAR MD Jan 12, 2022 09:15
[2022-01-12] MEDS: VASOPRESSIN INJECTION 20 UNIT in NS (IVPB) 100 ML IV SCH ×2 (09:24→17:08)
[2022-01-12] MEDS: ENOXAPARIN 40 MG/0.4 ML (LOVENOX) SYR SC SCH (09:24)
[2022-01-12 10:22] VITALS: BP 85/52
[2022-01-12] MEDS: RT-ALBUTEROL/IPRATROPIUM 3 ML (DUONEB) VIAL INH SCH ×3 (10:22→21:25)
[2022-01-12] MEDS ORDERED: METHYLNALTREXONE 12 MG/0.6 ML (RELISTOR) VIAL SQ NR (13:00)
[2022-01-12 14:30] VITALS: BP 85/52
[2022-01-12] MEDS ORDERED: BISACODYL 10 MG SUPP (DULCOLAX) PR NR (18:30)
[2022-01-12 19:00] VITALS: BP 142/86
[2022-01-12] MEDS: METOCLOPRAMIDE INJ 10 MG/2 ML (REGLAN) IVP SCH (20:09)
[2022-01-12 21:25] VITALS: BP 138/90
[2022-01-13 02:22] VITALS: BP 134/85
[2022-01-13] MEDS: RT-ALBUTEROL/IPRATROPIUM 3 ML (DUONEB) VIAL INH SCH ×5 (02:22→22:23)
[2022-01-13 04:50] LABS: BASOPHILS # (AUTO) 0.1 10^3/uL (0.0-0.1); BASOPHILS % (AUTO) 1 % (0-10); EOSINOPHILS % (AUTO) 0 % (0-10); HEMATOCRIT 27 % (35-52); LYMPHOCYTES # (AUTO) 1.4 10^3/uL (1.0-4.0); LYMPHOCYTES % (AUTO) 6 % (12-44); MEAN CORPUSCULAR HEMOGLOBIN 30 pg (25-34); MEAN CORPUSCULAR HGB CONC 33 g/dL (32-36); MEAN CORPUSCULAR VOLUME 90 fL (80-99); MEAN PLATELET VOLUME 10.2 fL (9.0-12.2); MONOCYTES # (AUTO) 1.5 10^3/uL (0.0-1.0); MONOCYTES % (AUTO) 6 % (0-12); NEUTROPHILS # (AUTO) 19.8 10^3/uL (1.8-7.8); NEUTROPHILS % (AUTO) 82 % (42-75); PLATELET COUNT 136 10^3/uL (130-400)
[2022-01-13 04:54] LABS: ALBUMIN 2.6 GM/DL (3.2-4.5); POTASSIUM 3.3 MMOL/L (3.6-5.0)
[2022-01-13 04:56] LABS: CALCIUM 8.5 MG/DL (8.5-10.1)
[2022-01-13 04:57] LABS: TOTAL PROTEIN 5.7 GM/DL (6.4-8.2)
[2022-01-13 04:58] LABS: BILIRUBIN,TOTAL 0.7 MG/DL (0.1-1.0)
[2022-01-13 05:00] LABS: PHOSPHORUS 2.1 MG/DL (2.3-4.7)
[2022-01-13 05:01] LABS: CREATININE SERUM 0.58 MG/DL (0.60-1.30)
[2022-01-13] MEDS: KCL 20 MEQ TAB (K-DUR) PO SCH (05:01)
[2022-01-13] MEDS: POTASSIUM CL 10MEQ/50ML IVPB 50 ML IV SCH ×5 (05:01→07:03)
[2022-01-13 05:02] LABS: BILIRUBIN,DIRECT 0.4 MG/DL (0.0-0.3); BILIRUBIN,INDIRECT 0.3 MG/DL
[2022-01-13 05:04] LABS: MAGNESIUM 1.5 MG/DL (1.6-2.4)
[2022-01-13] MEDS: MAGNESIUM 1 GM/100 ML IVPB 100 ML IV SCH ×3 (05:20→05:26)
[2022-01-13] MEDS: CEFEPIME INJECTION 1,000 MG in NS (IVPB) 50 ML IV SCH ×4 (05:25→23:18)
[2022-01-13] MEDS: CATHETER FLUSH 10 ML SYR IVP SCH ×3 (05:26→21:19)
[2022-01-13] MEDS: VASOPRESSIN INJECTION 20 UNIT in NS (IVPB) 100 ML IV SCH ×2 (05:35→17:15)
[2022-01-13 06:15] VITALS: BP 144/97
--- NOTE | 2022-01-13 07:00 | Occ Therapy Progress Note ---
Therapy Progress Note Pt currently intubated. OT to continue to monitor pt's status then will initiate treatment when pt is medically stable and able to actively participate in skilled therapy. SAI MIJARES Jan 13, 2022 06:59
[2022-01-13 07:18] LABS: LYMPHOCYTES % (MANUAL) 7 %; MONOCYTES % (MANUAL) 4 %; NEUTROPHILS % (MANUAL) 87 %
[2022-01-13 07:19] LABS: PROLYMPHOCYTE % 2 %; RBC MORPH NORMAL
--- NOTE | 2022-01-13 07:29 | Progress Note ---
PRESTON MAI 01/13/22 0728: Subjective Date Seen by a Provider: Jan 13, 2022 Time Seen by a Provider: 08:00 Subjective/Events-last exam Patient is still intubated and sedated Status unchanged Patient has lost 2 kg since yesterday Patient handled parenteral nutrition, but did vomit last night Fi02 is at 50% today, did not tolerate lower PEEP or Fi02 so she was returned to PEEP of 8 and Fi02 of 50% Patient will open eyes to hearing name, but eyes will not follow Patient had small bowel movement last around midnight She is moving her left foot sporadically without command Labs reviewed Focused Exam Time of Focused Exam: 214 Objective Exam Last Set of Vital Signs Vital Signs Date Time Temp Pulse Resp B/P (MAP) Pulse Ox O2 Delivery O2 Flow Rate FiO2 01/13/22 06:15 126 27 96 50 01/13/22 06:00 140/87 (104) Mechanical Ventilator 50.00 01/13/22 03:25 37.2 Capillary Refill : Less Than 3 Seconds I&O Intake and Output 01/13/22 00:00 Intake Total 5620 ml Output Total 4370 ml Balance 1250 ml Intake Oral 0 ml IV Total 4350 ml Tube Feeding 960 ml Other 310 ml Output Urine Total 4370 ml # Emeses 1 General: Severe Distress, Other (Still intubated and sedated) HEENT: Atraumatic, Mucous Memb Moist/[place] Neck: Supple Lungs: Other (Left lower lobe slightly improved breathe sounds from yesterday, right side still dimished lungs sounds.) Heart: Normal S1, Normal S2, No Murmurs Abdomen: Other (Hypoactive bowel sounds in all quadrents, stomach is less distended than yesterday. ) Extremities: No Clubbing, No Cyanosis, Other (Upper and lower extremity still swelled, anasarca) Skin: No Breakdown, Other (Multiple sores around left side of mouth) Neuro: Normal Tone Results Lab Laboratory Tests 01/12/22 08:49: Glucometer 132H 01/12/22 11:22: Glucometer 136H 01/12/22 16:07: Glucometer 130H 01/12/22 19:52: Glucometer 128H 01/13/22 00:04: Glucometer 114H 01/13/22 04:35: White Blood Count 24.0H, Red Blood Count 3.03L, Hemoglobin 9.0L, Hematocrit 27L, Mean Corpuscular Volume 90, Mean Corpuscular Hemoglobin 30, Mean Corpuscular Hemoglobin Concent 33, Red Cell Distribution Width 16.6H, Platelet Count 136, Mean Platelet Volume 10.2, Immature Granulocyte % (Auto) 5, Neutrophils (%) (Auto) 82H, Lymphocytes (%) (Auto) 6L, Monocytes (%) (Auto) 6, Eosinophils (%) (Auto) 0, Basophils (%) (Auto) 1, Neutrophils # (Auto) 19.8H, Lymphocytes # (Auto) 1.4, Monocytes # (Auto) 1.5H, Eosinophils # (Auto) 0.0, Basophils # (Auto) 0.1, Immature Granulocyte # (Auto) 1.3H, Neutrophils % (Manual) 87, Ly mphocytes % (Manual) 7, Prolymphocyte % 2, Monocytes % (Manual) 4, Promyelocytes % , Blood Morphology Comment NORMAL, Sodium Level 144, Potassium Level 3.3L, Chloride Level 111H, Carbon Dioxide Level 23, Anion Gap 10, Blood Urea Nitrogen 14, Creatinine 0.58L, Estimat Glomerular Filtration Rate 103, BUN/Creatinine Ratio 24, Glucose Level 119H, Calcium Level 8.5, Corrected Calcium 9.6, Phosphorus Level 2.1L, Magnesium Level 1.5L, Total Bilirubin 0.7, Direct Bilirubin 0.4H, Indirect Bilirubin 0.3, Aspartate Amino Transf (AST/SGOT) 114H, Alanine Aminotransferase (ALT/SGPT) 75H, Alkaline Phosphatase 88, Total Protein 5.7L, Albumin 2.6L Microbiology 01/10/22 Gram Stain - Final, Resulted 01/10/22 Bronchial Culture - Final, Resulted Staphylococcus aureus 01/10/22 Fungal Culture 1 - Preliminary, Resulted 01/08/22 Urine Culture - Final, Complete NO GROWTH 01/07/22 Blood Culture - Preliminary, Resulted No growth Assessment/Plan Assessment/Plan Assess & Plan/Chief Complaint Septic shock Continue with Vancomycin and cefepime Norepinenephrine not currently on Monitor Vitals- BP holding stable Continue IV fluids MRSA pneumonia Continue Vancomycin Chest x-ray improved from 01-12-2022 Awating Fungal Path report Continue Eraxis Administer Lasix 20 mg, potassium being replaced Acute respiratory failure with hypoxia Currently intubated Monitor ABG Bronchoscopy performed-No pathology found, just erythema Endotracheally intubated Monitor ABG's Abdominal distention/Constipation Obtain X-ray KUB Coagulopathy- INR 1.6 Hypernatremia-resolved Constipation-Resolved Given methylnaltrexone and suppository Septic encephalopathy Continue spetic shock management Supportive Care Acute kidney injury-Resolved Continue IV fluids Tachycardia/HTN Start metoprolol 5 mg IV Q6H DVT prophylaxis Administer Lovenox Hypoalbuinemia Currently on parenteral nutrition Hypophosphatemia On replacement per protocol Hypomagnesemia On replacement per protocol Hypokalemia Monitor and replace Clinical Quality Measures Admission Status Admission Dx Bilateral Pneumonia- Awaiting Blood Cultures Started on Cefepime and Doxycycline Continue Supportive Care Acute Respiratory Failure- Started on BiPAP Manage Pneumonia Monitor O2- consider intubation AMS-Possible secondary to Polypharmacy Review medication list Start Narcan Drip Septic Shock- Antibiotics started Continue fluids started Pressers administered JULIAN- Creatinine Currently 1.35 Continue IV fluids Hyponatremia- Continue IV fluids Consider replacement Hypoalbuminemia- Currently NPO but will supplement when able Elevated Creatine Kinase Continue IV fluids Dyspepsia/GERD Start pantoprazole BID ROBERT DUKES DO 01/13/22 1651: Supervisory-Addendum Brief Verification & Attestation Participated in pt care: history, physical Personally performed: exam, history, supervision of care Care discussed with: Medical Student Procedures: n/a Results interpretation: Verified all documentation Patient seen and assessed. Does open eyes to voice and is moving toes and fingers. Off levophed drip since yesterday and now mildy hypertensive and tachycardic so will add low dose metroprolol IV. CXR looks stable to mildly improved. Discussed status with lew. PRESTON MAI Jan 13, 2022 07:28 ROBERT DUKES DO Jan 13, 2022 16:51
--- NOTE | 2022-01-13 07:57 | Progress Note - Surgery ---
DEREK LAZCANO Bryan 01/13/22 0757: Subjective Date Seen by a Provider: Jan 13, 2022 Time Seen by a Provider: 07:54 Subjective/Events-last exam Patient is still intubated and sedated and status unchanged. Pt had small bowel movement yesterday around midnight and has lost 2 kg since yesterday. Pt vomited last night and is on parenteral nutrition. Pt is alert and will open eyes but does not follow commands and cannot track. Left foot moves sporadically without command. labs reviewed chest x-ray shows stable patchy opacities within the right midlung and stable diffuse intersitital opacities. Focused Exam Time of Focused Exam: 214 Respiratory: Normal Breath Sounds, No Accessory Muscle Use, No Respiratory Distress Cardiovascular: No Edema, No Gallop, No JVD Skin: normal color, warm/dry Objective Exam Vital Signs Date Time Temp Pulse Resp B/P (MAP) Pulse Ox O2 Delivery O2 Flow Rate FiO2 01/13/22 07:49 38.7 01/13/22 06:15 126 27 96 50 01/13/22 06:00 121 25 140/87 (104) 96 Mechanical Ventilator 50.00 01/13/22 05:00 115 25 130/85 (100) 96 Mechanical Ventilator 50.00 01/13/22 04:30 50 01/13/22 04:00 97 Mechanical Ventilator 50 01/13/22 04:00 112 25 130/81 (97) 96 Mechanical Ventilator 50.00 01/13/22 03:25 37.2 Mechanical Ventilator 50.00 01/13/22 03:00 111 25 134/81 (98) 97 Mechanical Ventilator 50.00 01/13/22 02:22 112 25 98 50 01/13/22 02:00 112 25 136/82 (100) 97 Mechanical Ventilator 50.00 01/13/22 01:07 124 25 92 Mechanical Ventilator 50.00 01/13/22 01:00 118 25 133/85 (101) 93 Mechanical Ventilator 40.00 01/13/22 01:00 118 01/13/22 00:13 94 Mechanical Ventilator 40 01/13/22 00:12 40 01/13/22 00:00 128 25 140/86 (104) 94 Mechanical Ventilator 40.00 01/12/22 23:50 37.0 25 Mechanical Ventilator 40.00 01/12/22 23:00 140 25 151/92 (111) 99 Mechanical Ventilator 40.00 01/12/22 22:00 129 25 145/90 (108) 93 Mechanical Ventilator 40.00 01/12/22 21:32 25 Mechanical Ventilator 40.00 01/12/22 21:25 123 25 96 40 01/12/22 21:00 124 25 141/85 (103) 98 Mechanical Ventilator 50.00 01/12/22 20:29 50 01/12/22 20:00 129 25 144/94 (111) 94 Mechanical Ventilator 50.00 01/12/22 20:00 96 Mechanical Ventilator 50 01/12/22 19:54 37.6 25 Mechanical Ventilator 50.00 01/12/22 19:00 113 01/12/22 19:00 113 25 142/86 (104) 98 Mechanical Ventilator 50.00 01/12/22 19:00 122 25 98 50 01/12/22 18:21 37.1 01/12/22 18:00 131 8 161/103 (122) 96 Mechanical Ventilator 50.00 01/12/22 17:08 37.7 01/12/22 17:07 129 145/90 01/12/22 17:00 112 25 145/90 (108) 98 Mechanical Ventilator 50.00 01/12/22 16:00 97 Mechanical Ventilator 50 01/12/22 16:00 110 25 140/106 (117) 98 Mechanical Ventilator 50.00 01/12/22 15:15 114 124/80 01/12/22 15:14 37.7 01/12/22 15:14 37.7 01/12/22 15:12 114 124/80 01/12/22 15:00 105 25 124/80 (95) 96 Mechanical Ventilator 50.00 01/12/22 14:42 111 127/83 01/12/22 14:30 101 28 96 50 01/12/22 14:00 106 25 131/85 (100) 96 Mechanical Ventilator 50.00 01/12/22 13:55 38.3 01/12/22 13:48 38.3 Mechanical Ventilator 50.00 01/12/22 13:29 88 01/12/22 13:00 90 25 109/72 (84) 96 Mechanical Ventilator 50.00 01/12/22 12:56 101 101/63 01/12/22 12:00 38.0 01/12/22 12:00 101 17 112/65 (81) 96 Mechanical Ventilator 50.00 01/12/22 12:00 96 Mechanical Ventilator 50 01/12/22 11:18 101 85/52 01/12/22 11:03 101 85/52 01/12/22 11:02 87 79/47 01/12/22 11:00 87 25 79/47 (58) 96 Mechanical Ventilator 50.00 01/12/22 10:22 101 28 96 50 01/12/22 10:00 104 11 96/64 (75) 97 Mechanical Ventilator 50.00 01/12/22 09:46 105 98/60 01/12/22 09:00 105 29 98/60 (73) 96 Mechanical Ventilator 50.00 01/12/22 08:53 114 120/77 01/12/22 08:50 38.2 01/12/22 08:50 38.2 01/12/22 08:00 96 Mechanical Ventilator 50 01/12/22 08:00 38.8 01/12/22 08:00 105 22 101/59 (73) 96 Mechanical Ventilator 50.00 I & O 01/13/22 07:00 Intake Total 5200 ml Output Total 4475 ml Balance 725 ml Capillary Refill : Less Than 3 Seconds General Appearance: No Apparent Distress, Other (intubated and sedated) HEENT: PERRL/EOMI, Normal ENT Inspection Neck: Normal Inspection, Supple Respiratory: Decreased Breath Sounds, Other (intubated and mechanically ventilated) Cardiovascular: Regular Rate, Rhythm, No JVD Peripheral Pulses: 2+ Radial Pulses (L) Gastrointestinal: soft, distended (minimal) Extremity: Normal Capillary Refill, Normal Inspection, Swelling Neurologic/Psychiatric: No Alert, No Oriented x3; Other (sedated) Skin: Normal Color, Warm/Dry Lymphatic: No Adenopathy Results Lab Laboratory Tests 01/12/22 08:49: Glucometer 132H 01/12/22 11:22: Glucometer 136H 01/12/22 16:07: Glucometer 130H 01/12/22 19:52: Glucometer 128H 01/13/22 00:04: Glucometer 114H 01/13/22 04:35: White Blood Count 24.0H, Red Blood Count 3.03L, Hemoglobin 9.0L, Hematocrit 27L, Mean Corpuscular Volume 90, Mean Corpuscular Hemoglobin 30, Mean Corpuscular Hemoglobin Concent 33, Red Cell Distribution Width 16.6H, Platelet Count 136, Mean Platelet Volume 10.2, Immature Granulocyte % (Auto) 5, Neutrophils (%) (Auto) 82H, Lymphocytes (%) (Auto) 6L, Monocytes (%) (Auto) 6, Eosinophils (%) (Auto) 0, Basophils (%) (Auto) 1, Neutrophils # (Auto) 19.8H, Lymphocytes # (Auto) 1.4, Monocytes # (Auto) 1.5H, Eosinophils # (Auto) 0.0, Basophils # (Aut o) 0.1, Immature Granulocyte # (Auto) 1.3H, Neutrophils % (Manual) 87, Lymphocytes % (Manual) 7, Prolymphocyte % 2, Monocytes % (Manual) 4, Promyelocytes % , Blood Morphology Comment NORMAL, Sodium Level 144, Potassium Level 3.3L, Chloride Level 111H, Carbon Dioxide Level 23, Anion Gap 10, Blood Urea Nitrogen 14, Creatinine 0.58L, Estimat Glomerular Filtration Rate 103, BUN/Creatinine Ratio 24, Glucose Level 119H, Calcium Level 8.5, Corrected Calcium 9.6, Phosphorus Level 2.1L, Magnesium Level 1.5L, Total Bilirubin 0.7, Direct Bilirubin 0.4H, Indirect Bilirubin 0.3, Aspartate Amino Transf (AST/SGOT) 114H, Alanine Aminotransferase (ALT/SGPT) 75H, Alkaline Phosphatase 88, Total Protein 5.7L, Albumin 2.6L Microbiology 01/10/22 Gram Stain - Final, Resulted 01/10/22 Bronchial Culture - Final, Resulted Staphylococcus aureus 01/10/22 Fungal Culture 1 - Preliminary, Resulted 01/08/22 Urine Culture - Final, Complete NO GROWTH 01/07/22 Blood Culture - Preliminary, Resulted No growth Assessment/Plan Assessment/Plan Assessment/Plan Septic shock Continue with Vancomycin and cefepime Norepinenephrine not currently on Monitor Vitals- BP holding stable Continue IV fluids MRSA pneumonia Continue Vancomycin Chest x-ray improved from 01-12-2022 Nevin on culture Continue Eraxis Acute respiratory failure with hypoxia Currently intubated Monitor ABG Bronchoscopy performed-No pathology found, just erythema Endotracheally intubated Monitor ABG's Abdominal distention/Constipation Obtain X-ray KUB Coagulopathy- INR 1.6 Hypernatremia-resolved Constipation-Resolved Given methylnaltrexone and suppository Septic encephalopathy Continue spetic shock management Supportive Care Acute kidney injury-Resolved Continue IV fluids DVT prophylaxis Administer Lovenox Hypoalbuinemia Currently on parenteral nutrition Hypophosphatemia On replacement per protocol Hypomagnesemia On replacement per protocol Hypokalemia Monitor and replace GABY MARIE DO 01/13/222046: Subjective Subjective/Events-last exam Remains intubated and sedated. Febrile. No family at bedside. Lots of secretions still. Chest x ray no significant change. Will open eyes but does not follow. Objective Exam General Appearance: No Apparent Distress, Other (intubated and sedated) HEENT: PERRL/EOMI, Normal ENT Inspection Neck: Normal Inspection, Supple Respiratory: Decreased Breath Sounds, Other (intubated and mechanically ventilated) Cardiovascular: Regular Rate, Rhythm, No JVD Gastrointestinal: soft, distended (minimal) Extremity: Normal Capillary Refill, Normal Inspection, Swelling Neurologic/Psychiatric: No Alert, No Oriented x3; Other (sedated) Skin: Normal Color, Warm/Dry Lymphatic: No Adenopathy Assessment/Plan Assessment/Plan Assessment/Plan Septic shock MRSA pneumonia Acute respiratory failure with hypoxia and hypercapnia Endotracheally intubated Septic encephalopathy Acute kidney injury Staph aureus on culture and Fungal prelim with nevin washing sent for culture await finals continue abx/eraxis will sign off, call if needed Supervisory-Addendum Brief Verification & Attestation Participated in pt care: history, MDM, physical Personally performed: exam, history, MDM, supervision of care Care discussed with: Medical Student Procedures: n/a Results interpretation: Verified all documentation Verification and Attestation of Medical Student E/M Service A medical student performed and documented this service in my presence. I revi ewed and verified all information documented by the medical student and made modifications to such information, when appropriate. I personally performed the physical exam and medical decision making. Gaby Marie, Jan 13, 2022,20:49 DEREK LAZCANO Jan 13, 2022 07:57 GABY MARIE DO Jan 13, 2022 20:47
[2022-01-13] MEDS ORDERED: TROUGH ORDER-PHARMACY XX ONE (08:00)
--- NOTE | 2022-01-13 08:00 | Physical Therapy Progress Note ---
Therapy Progress Note Pt is currently intubated. PT to monitor pt's status then will initiate treatment when pt is medically stable and able to actively participate in skilled therapy. FELI DC PT Jan 13, 2022 08:00
[2022-01-13] MEDS: PANTOPRAZOLE 40 MG (PROTONIX) VIAL IV SCH ×2 (08:28→20:34)
[2022-01-13] MEDS: METOCLOPRAMIDE INJ 10 MG/2 ML (REGLAN) IVP SCH ×4 (08:28→20:34)
[2022-01-13] MEDS: ACETAMINOPHEN 325 MG TABLET NG PRN ×2 (08:29→20:34)
[2022-01-13] MEDS: ANIDULAFUNGIN INJECTION 100 MG in NS (IVPB) 100 ML IV SCH (08:29)
[2022-01-13] MEDS: MUPIROCIN 2% OINT 22 GM (BACTROBAN) TUBE NSEACH SCH ×2 (08:30→21:18)
[2022-01-13] MEDS ORDERED: FUROSEMIDE 40 MG/4 ML INJ (LASIX) IVP NR (08:30)
[2022-01-13] MEDS ORDERED: meTOprolol 5 MG/5 ML (LOPRESSOR) VIAL ONE (08:59)
--- NOTE | 2022-01-13 09:03 | Diagnostic Imaging Report ---
INDICATION: Respiratory failure Frontal chest obtained at 0412 a.m. and compared to 01/12/2022. ET tube and NG tube and right-sided PICC line are all unchanged. Central vascular congestion again noted with interstitial edema. Extensive patchy infiltrate in the right lung appears stable. There is no pneumothorax or gross pleural fluid. IMPRESSION: Stable life support lines. Central vascular congestion with diffuse interstitial edema and bilateral infiltrates, right greater than left. No significant new abnormality compared to the prior study. Dictated by: Dictated on workstation # [id number]
[2022-01-13] MEDS: ENOXAPARIN 40 MG/0.4 ML (LOVENOX) SYR SC SCH (09:08)
[2022-01-13] MEDS: VANCOMYCIN 1 GM/NS 250 ML IVPB IV SCH ×4 (09:08→20:35)
--- NOTE | 2022-01-13 10:03 | Tele-ICU Progress Note ---
Subjective Date Seen by a Provider: Jan 13, 2022 Time Seen by a Provider: 09:59 Subjective/Events-last exam (Tele-ICU Physician , Progress Note ) Available chart/ vitals / labs / Images reviewed Video assessment done using teleICU camera, rest of exam as per RN Discussed with RN Events overnight : FEBRILE hemodynamically stable Respiratory - 55 % I/O = neg 1200 Drips: Pressors- OFF 01/12 VENT SETTINGS and ABG reviewed Sedation: RASS -2 discussed with RN , fent 100 precedex 0.7 - open eyes NOT CANDIDATE for SBTreviewed possible contraindications including Cardiovascular Stability /Sedation Score / FI02/PEEP / ABG / CXR/ secretions Consultants: Hospital course: (01/08) 61yr F admitted for Septic Shock, Pneumonia, Acute Respiratory Failure with Hypoxia. Intubated (01/10)bronch 01/13-- NOT FOLLOW COMMANDS 01/13 on sedation vacation , eyes open ( prededex , fentanyl Acute resp failure - with PNA - intubated 01/10 -AC 25 400 50% +8 - acidosi is improving - CPM secretions abundunt - cont nebs -gentle diuresis septic shock - OFF levo 01/12 Hyponatremia ? SAIDH with PNA - NOW IN 140s -- Na 115 on presentation 01/07 normalised by 01/09 - 60 cc q4 TF h2o Multilobar Right>>>L PNA ( neg lefionella , neg flu and covid - s/p FOB 01/10 - cx + MRSA presumed -sputum cx 01/08 - MRSA -on cefepime and vanco - Eraxis 01/12 Mild coagulopath y - INR 1.6 --> inr 2.2 -> improved Encephalopaty ( secondary to overdose vs hyponatremia. 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 Discussed with RN to reach out if any questions or concerns additional total of 32 minutes of critical care time was devoted to this patient today, required to treat and/or prevent further deterioration of critical care condition ( as above ) . I am remotely monitoring this patient from another state. I am unable to do the bedside exam, and history/physical and pertinent information is taken from other notes in the computer and bedside staff. I cannot take responsibility for the accuracy of this information. Sepsis Event Evaluation Height, Weight, BMI Height: 5'5.00" Weight: 129lbs. 4.0oz. [id number]; 25.89 BMI Method: Focused Exam Time of Focused Exam: 214 Exam Exam Patient acknowledged, consented, and participated in this virtual visit which was conducted using real time audio/video Vital Signs Date Time Temp Pulse Resp B/P (MAP) Pulse Ox O2 Delivery O2 Flow Rate FiO2 01/13/22 09:07 37.1 01/13/22 09:06 37.1 01/13/22 09:00 114 26 135/89 (104) 97 Mechanical Ventilator 50.00 01/13/22 08:29 37.9 01/13/22 08:29 37.9 01/13/22 08:00 50 01/13/22 08:00 124 35 148/91 (110) 97 Mechanical Ventilator 50.00 01/13/22 08:00 37.4 01/13/22 08:00 98 Mechanical Ventilator 50 01/13/22 07:49 38.7 01/13/22 07:35 122 01/13/22 07:00 126 27 147/92 (110) 97 Mechanical Ventilator 50.00 01/13/22 06:15 126 27 96 50 01/13/22 06:00 121 25 140/87 (104) 96 Mechanical Ventilator 50.00 01/13/22 05:00 115 25 130/85 (100) 96 Mechanical Ventilator 50.00 01/13/22 04:30 50 01/13/22 04:00 97 Mechanical Ventilator 50 01/13/22 04:00 112 25 130/81 (97) 96 Mechanical Ventilator 50.00 01/13/22 03:25 37.2 Mechanical Ventilator 50.00 01/13/22 03:00 111 25 134/81 (98) 97 Mechanical Ventilator 50.00 01/13/22 02:22 112 25 98 50 01/13/22 02:00 112 25 136/82 (100) 97 Mechanical Ventilator 50.00 01/13/22 01:07 124 25 92 Mechanical Ventilator 50.00 01/13/22 01:00 118 25 133/85 (101) 93 Mechanical Ventilator 40.00 01/13/22 01:00 118 01/13/22 00:13 94 Mechanical Ventilator 40 01/13/22 00:12 40 01/13/22 00:00 128 25 140/86 (104) 94 Mechanical Ventilator 40.00 01/12/22 23:50 37.0 25 Mechanical Ventilator 40.00 01/12/22 23:00 140 25 151/92 (111) 99 Mechanical Ventilator 40.00 01/12/22 22:00 129 25 145/90 (108) 93 Mechanical Ventilator 40.00 01/12/22 21:32 25 Mechanical Ventilator 40.00 01/12/22 21:25 123 25 96 40 01/12/22 21:00 124 25 141/85 (103) 98 Mechanical Ventilator 50.00 01/12/22 20:29 50 01/12/22 20:00 129 25 144/94 (111) 94 Mechanical Ventilator 50.00 01/12/22 20:00 96 Mechanical Ventilator 50 01/12/22 19:54 37.6 25 Mechanical Ventilator 50.00 01/12/22 19:00 113 01/12/22 19:00 113 25 142/86 (104) 98 Mechanical Ventilator 50.00 01/12/22 19:00 122 25 98 50 01/12/22 18:21 37.1 01/12/22 18:00 131 8 161/103 (122) 96 Mechanical Ventilator 50.00 01/12/22 17:08 37.7 01/12/22 17:07 129 145/90 01/12/22 17:00 112 25 145/90 (108) 98 Mechanical Ventilator 50.00 01/12/22 16:00 97 Mechanical Ventilator 50 01/12/22 16:00 110 25 140/106 (117) 98 Mechanical Ventilator 50.00 01/12/22 15:15 114 124/80 01/12/22 15:14 37.7 01/12/22 15:14 37.7 01/12/22 15:12 114 124/80 01/12/22 15:00 105 25 124/80 (95) 96 Mechanical Ventilator 50.00 01/12/22 14:42 111 127/83 01/12/22 14:30 101 28 96 50 01/12/22 14:00 106 25 131/85 (100) 96 Mechanical Ventilator 50.00 01/12/22 13:55 38.3 01/12/22 13:48 38.3 Mechanical Ventilator 50.00 01/12/22 13:29 88 01/12/22 13:00 90 25 109/72 (84) 96 Mechanical Ventilator 50.00 01/12/22 12:56 101 101/63 01/12/22 12:00 38.0 01/12/22 12:00 101 17 112/65 (81) 96 Mechanical Ventilator 50.00 01/12/22 12:00 96 Mechanical Ventilator 50 01/12/22 11:18 101 85/52 01/12/22 11:03 101 85/52 01/12/22 11:02 87 79/47 01/12/22 11:00 87 25 79/47 (58) 96 Mechanical Ventilator 50.00 01/12/22 10:22 101 28 96 50 01/12/22 10:00 104 11 96/64 (75) 97 Mechanical Ventilator 50.00 I & O 01/13/22 07:00 Intake Total 5200 ml Output Total 4475 ml Balance 725 ml Height & Weight Height: 5'5.00" Weight: 129lbs. 4.0oz. [id number]; 25.89 BMI Method: General Appearance: No Apparent Distress, Other (intubated and sedated) HEENT: PERRL/EOMI, Normal ENT Inspection Neck: Normal Inspection, Supple Respiratory: Decreased Breath Sounds, Other (intubated and mechanically ventilated) Cardiovascular: Regular Rate, Rhythm, No JVD Capillary Refill: Less Than 3 Seconds Peripheral Pulses: 2+ Radial Pulses (L) Gastrointestinal: soft, distended (minimal) Extremity: Normal Capillary Refill, Normal Inspection, Swelling Neurologic/Psychiatric: No Alert, No Oriented x3; Other (sedated) Skin: Normal Color, Warm/Dry Lymphatic: No Adenopathy Results Lab Laboratory Tests 01/12/22 03:05 01/13/22 04:35 Assessment/Plan Assessment/Plan 1 LOLIS KUMAR MD Jan 13, 2022 10:03
[2022-01-13] MEDS: NS IV 1000 ML 1,000 ML IV SCH ×2 (10:47→20:36)
[2022-01-13] MEDS: fentaNYL DRIP PRE-MIX 250 ML IV SCH ×2 (10:47→20:36)
[2022-01-13 10:56] VITALS: BP 146/102
[2022-01-13] MEDS: meTOprolol 5 MG/5 ML (LOPRESSOR) VIAL IV SCH ×3 (12:15→23:18)
[2022-01-13 15:06] VITALS: BP 155/103
[2022-01-13] MEDS: aCETylcysteine 20% (MUCOMYST) 4 ML SOLN VIAL INH SCH ×2 (15:06→18:55)
[2022-01-13] MEDS: fentaNYL INJ 100 MCG/2 ML AMP IVP PRN (17:00)
[2022-01-13 19:00] VITALS: BP 151/104
[2022-01-13] MEDS: DexMEDEtomidine 250 ML DRIP 250 ML IV SCH (20:36)
[2022-01-13 22:28] LABS: ABG BASE EXCESS -0.2 MMOL/L (-2.5-2.5); ABG OXYGEN SATURATION 93 % (94-100); ABG PCO2 46 MMHG (35-45); ABG PH 7.35 (7.37-7.43); ABG PO2 71 MMHG (79-93); ABG TCO2 25.9 MMOL/L (21.0-31.0)
[2022-01-13 22:29] VITALS: BP 151/94
[2022-01-13 22:30] LABS: ALLENS TEST YES-POS; INSPIRED O2 50%; VENTILATOR YES
[2022-01-13 22:31] LABS: PATIENT TEMP 37.6
[2022-01-13] MEDS ORDERED: GABAPENTIN 100 MG (NEURONTIN) CAP PO ONE (22:45)
[2022-01-13] MEDS ORDERED: QUEtiapine 100 MG (SEROquel) TAB IMMEDIATE RELEASE PO ONE (22:45)
[2022-01-14] MEDS: fentaNYL DRIP PRE-MIX 250 ML IV SCH ×2 (02:15→13:41)
[2022-01-14 02:38] VITALS: BP 119/69
[2022-01-14] MEDS: RT-ALBUTEROL/IPRATROPIUM 3 ML (DUONEB) VIAL INH SCH ×6 (02:38→22:57)
[2022-01-14] MEDS: aCETylcysteine 20% (MUCOMYST) 4 ML SOLN VIAL INH SCH ×4 (02:38→22:57)
[2022-01-14] MEDS: NOREPINEPHRINE 8 MG/250 ML 250 ML IV SCH (03:29)
[2022-01-14] MEDS: VASOPRESSIN INJECTION 20 UNIT in NS (IVPB) 100 ML IV SCH ×2 (03:29→16:12)
[2022-01-14 05:32] LABS: BASOPHILS # (AUTO) 0.1 10^3/uL (0.0-0.1); BASOPHILS % (AUTO) 0 % (0-10); EOSINOPHILS % (AUTO) 0 % (0-10); HEMATOCRIT 25 % (35-52); HEMOGLOBIN 8.4 g/dL (11.5-16.0); LYMPHOCYTES # (AUTO) 1.6 10^3/uL (1.0-4.0); LYMPHOCYTES % (AUTO) 7 % (12-44); MEAN CORPUSCULAR HEMOGLOBIN 30 pg (25-34); MEAN CORPUSCULAR HGB CONC 33 g/dL (32-36); MEAN CORPUSCULAR VOLUME 91 fL (80-99); MEAN PLATELET VOLUME 10.6 fL (9.0-12.2); MONOCYTES % (AUTO) 5 % (0-12); NEUTROPHILS % (AUTO) 85 % (42-75); PLATELET COUNT 135 10^3/uL (130-400); WHITE BLOOD COUNT 21.2 10^3/uL (4.3-11.0)
[2022-01-14 05:51] LABS: ALBUMIN 2.1 GM/DL (3.2-4.5); BILIRUBIN,DIRECT 0.4 MG/DL (0.0-0.3); BILIRUBIN,INDIRECT 0.2 MG/DL; BILIRUBIN,TOTAL 0.6 MG/DL (0.1-1.0); CALCIUM 8.1 MG/DL (8.5-10.1); CREATININE SERUM 0.6 MG/DL (0.60-1.30); MAGNESIUM 1.6 MG/DL (1.6-2.4); PHOSPHORUS 2.1 MG/DL (2.3-4.7); POTASSIUM 2.9 MMOL/L (3.6-5.0); TOTAL PROTEIN 5.2 GM/DL (6.4-8.2)
[2022-01-14] MEDS: POTASSIUM CL 10MEQ/50ML IVPB 50 ML IV SCH ×8 (06:11→19:15)
[2022-01-14] MEDS: KCL 20 MEQ TAB (K-DUR) PO SCH (06:11)
[2022-01-14] MEDS: MAGNESIUM 1 GM/100 ML IVPB 100 ML IV SCH ×3 (06:11→06:23)
[2022-01-14] MEDS: meTOprolol 5 MG/5 ML (LOPRESSOR) VIAL IV SCH ×4 (06:21→23:34)
[2022-01-14] MEDS: CEFEPIME INJECTION 1,000 MG in NS (IVPB) 50 ML IV SCH ×4 (06:21→23:35)
[2022-01-14] MEDS: CATHETER FLUSH 10 ML SYR IVP SCH ×3 (06:22→20:43)
--- NOTE | 2022-01-14 06:33 | Occ Therapy Progress Note ---
Therapy Progress Note Pt currently intubated. OT to monitor pt's status then will initiate treatment when pt is medically stable and able to actively participate in skilled therapy. SAI MIJARES Jan 14, 2022 06:33
[2022-01-14 06:52] VITALS: BP 112/61
--- NOTE | 2022-01-14 07:24 | Progress Note ---
PRESTON MAI 01/14/22 0724: Subjective Date Seen by a Provider: Jan 14, 2022 Time Seen by a Provider: 08:00 Subjective/Events-last exam Following up on MRSA pneumonia and respiratory failure Patient is still intubated and sedated Status unchanged Patient has lost 1 kg since yesterday Patient restarted parenteral nutrition Fi02 is at 50% today, PEEP of 8 Patient will open eyes to hearing name, but eyes will not follow Patient has had no bowel movement since yesterday She is moving her left foot sporadically without command Was able to move right hand on command BP and HR are improved from yesterday Labs reviewed Focused Exam Time of Focused Exam: 214 Objective Exam Last Set of Vital Signs Vital Signs Date Time Temp Pulse Resp B/P (MAP) Pulse Ox O2 Delivery O2 Flow Rate FiO2 01/14/22 06:52 97 27 95 50 01/14/22 06:00 106/66 (79) Mechanical Ventilator 50.00 01/14/22 00:21 36.1 Capillary Refill : Less Than 3 Seconds I&O Intake and Output 01/13/22 23:59 Intake Total 4070 ml Output Total 3225 ml Balance 845 ml IV Total 3580 ml Tube Feeding 160 ml Other 330 ml Output Urine Total 3125 ml Gastric Drainage Total 100 ml # Bowel Movements 1 General: Severe Distress, Other (Intubated and sedated ) HEENT: Atraumatic Neck: Supple, Other (Right JVD) Lungs: Other (Right lung decreased breathe sounds, left lung no change in lung sounds from yesterday still diminished) Heart: Normal S1, Normal S2, Other (Tachycardic ) Abdomen: Other (Hypoactive bowel sounds, improved from yesterday, still mild destention) Extremities: No Clubbing, No Cyanosis Skin: No Rashes, No Breakdown Neuro: Normal Tone Results Lab Laboratory Tests 01/13/22 08:10: Vancomycin Level Trough 14.2 01/13/22 08:14: Glucometer 112H 01/13/22 11:30: Glucometer 126H 01/13/22 16:57: Glucometer 117H 01/13/22 20:09: Glucometer 137H 01/13/22 22:20: Blood Gas Puncture Site RT RADIAL, Blood Gas Patient Temperature 37.6, Arterial Blood pH 7.35L, Arterial Blood Partial Pressure CO2 46H, Arterial Blood Partial Pressure O2 71L, Arterial Blood HCO3 25, Arterial Blood Total CO2 25.9, Arterial Blood Oxygen Saturation 93L, Arterial Blood Base Excess -0.2, Wiley Test YES- POS, Blood Gas Ventilator Setting YES, Blood Gas Inspired Oxygen 50% 01/14/22 00:20: Glucometer 106 01/14/22 04:11: Glucometer 122H 01/14/22 05:12: White Blood Count 21.2H, Red Blood Count 2.79L, Hemoglobin 8.4L, Hematocrit 25L, Mean Corpuscular Volume 91, Mean Corpuscular Hemoglobin 30, Mean Corpuscular Hemoglobin Concent 33, Red Cell Distribution Width 16.4H, Platelet Count 135, Mean Platelet Volume 10.6, Immature Granulocyte % (Auto) 3, Neutrophils (%) (Auto) 85H, Lymphocytes (%) (Auto) 7L, Monocytes (%) (Auto) 5, Eosinophils (%) (Auto) 0, Basophils (%) (Auto) 0, Neutrophils # (Auto) 18.0H, Lymphocytes # (Auto) 1.6, Monocytes # (Auto) 1.0, Eosinophils # (Auto) 0.0, Basophils # (Auto) 0.1, Immature Granulocyte # (Auto) 0.6H, Sodium Level 149H, Potassium Level 2.9L , Chloride Level 116H, Carbon Dioxide Level 23, Anion Gap 10, Blood Urea Nitrogen 19H, Creatinine 0.60, Estimat Glomerular Filtration Rate 102, BUN/Creatinine Ratio 32, Glucose Level 126H, Calcium Level 8.1L, Corrected Calcium 9.6, Phosphorus Level 2.1L, Magnesium Level 1.6, Total Bilirubin 0.6, Direct Bilirubin 0.4H, Indirect Bilirubin 0.2, Aspartate Amino Transf (AST/SGOT) 83H, Alanine Aminotransferase (ALT/SGPT) 94H, Alkaline Phosphatase 86, Total Protein 5.2L, Albumin 2.1L Microbiology 01/10/22 Gram Stain - Final, Resulted 01/10/22 Bronchial Culture - Final, Resulted Staphylococcus aureus 01/10/22 Fungal Culture 1 - Preliminary, Resulted 01/08/22 Urine Culture - Final, Complete NO GROWTH 01/07/22 Blood Culture - Final, Complete No growth Assessment/Plan Assessment/Plan Assess & Plan/Chief Complaint Septic shock Continue with Vancomycin and cefepime Monitor Vitals- BP and HR holding stable Continue IV fluids MRSA pneumonia Continue Vancomycin Chest x-ray unchanged from 01-13-2022 Awating Fungal Path report Continue Eraxis Administer 40 mg Lasix- recheck potassium this afternoon Acute respiratory failure with hypoxia Currently intubated Monitor ABG Bronchoscopy performed-No pathology found, just erythema Started on cyclobenzaprine, buspirone, quetiapine Endotracheally intubated Monitor ABG's Abdominal distention/Constipation Obtain X-ray KUB Coagulopathy- INR 1.6 Hypernatremia- currently 149 Continue fluids Slow parenteral feedings Constipation-Resolved Given methylnaltrexone and suppository Septic encephalopathy Continue spetic shock management Supportive Care Acute kidney injury-Resolved Continue IV fluids Tachycardia/HTN-improved Start metoprolol 5 mg IV Q6H DVT prophylaxis Administer Lovenox Hypoalbuinemia Currently on parenteral nutrition Hypophosphatemia On replacement per protocol Hypomagnesemia On replacement per protocol Hypokalemia Monitor and replace Clinical Quality Measures Admission Status Admission Dx Bilateral Pneumonia- Awaiting Blood Cultures Started on Cefepime and Doxycycline Continue Supportive Care Acute Respiratory Failure- Started on BiPAP Manage Pneumonia Monitor O2- consider intubation AMS-Possible secondary to Polypharmacy Review medication list Start Narcan Drip Septic Shock- Antibiotics started Continue fluids started Pressers administered JULIAN- Creatinine Currently 1.35 Continue IV fluids Hyponatremia- Continue IV fluids Consider replacement Hypoalbuminemia- Currently NPO but will supplement when able Elevated Creatine Kinase Continue IV fluids Dyspepsia/GERD Start pantoprazole BID ROBERT DUKES DO 01/14/22 1310: Supervisory-Addendum Brief Verification & Attestation Participated in pt care: history, physical Personally performed: exam, history, supervision of care Care discussed with: Medical Student Procedures: n/a Results interpretation: Verified all documentation Patient seen and assessed. BP and pulse improved after addition of gabapentin and quetiapine. Will give lasix again today and replace potassium. PRESTON MAI Jan 14, 2022 07:24 ROBERT DUKES DO Jan 14, 2022 13:10
--- NOTE | 2022-01-14 07:29 | Physical Therapy Progress Note ---
Therapy Progress Note Pt is currently intubated. PT to monitor pt's status then will initiate treatment when pt is medically stable and able to actively participate in skilled therapy. JUAN ALBERTO PAZ PT Jan 14, 2022 07:29
--- NOTE | 2022-01-14 08:20 | Diagnostic Imaging Report ---
INDICATION: Respiratory failure Frontal chest obtained at 1032 p.m. compared to 01/13/2022 ET tube and NG tube and right-sided PICC line are all unchanged. There is central vascular congestion with diffuse interstitial edema and/or infiltrate as well as extensive right sided alveolar infiltrate. These findings are unchanged from prior study. There is no pneumothorax or pleural fluid. IMPRESSION: Extensive central vascular congestion and interstitial edema and/or interstitial infiltrate. Extensive alveolar infiltrate in right upper lobe and right base. Stable life support lines. No new changes. Dictated by: Dictated on workstation # [id number]
[2022-01-14] MEDS ORDERED: FUROSEMIDE 40 MG/4 ML INJ (LASIX) IVP NR (08:30)
[2022-01-14] MEDS: METOCLOPRAMIDE INJ 10 MG/2 ML (REGLAN) IVP SCH ×4 (09:19→20:32)
[2022-01-14] MEDS: PANTOPRAZOLE 40 MG (PROTONIX) VIAL IV SCH ×2 (09:19→20:31)
[2022-01-14] MEDS: CYCLOBENZAPRINE 10 MG (FLEXERIL) TAB PO SCH ×3 (09:20→20:32)
[2022-01-14] MEDS: GABAPENTIN 600 MG (NEURONTIN) TAB PO SCH ×3 (09:20→20:33)
[2022-01-14] MEDS: QUEtiapine 100 MG (SEROquel) TAB IMMEDIATE RELEASE PO SCH ×2 (09:20→20:32)
[2022-01-14] MEDS: busPIRone 15 MG (BUSPAR) TABLET PO SCH (09:20)
[2022-01-14] MEDS: ANIDULAFUNGIN INJECTION 100 MG in NS (IVPB) 100 ML IV SCH (09:22)
[2022-01-14] MEDS: VANCOMYCIN 1 GM/NS 250 ML IVPB IV SCH ×4 (09:22→20:32)
[2022-01-14] MEDS: MUPIROCIN 2% OINT 22 GM (BACTROBAN) TUBE NSEACH SCH ×2 (09:23→20:31)
--- NOTE | 2022-01-14 10:00 | Tele-ICU Progress Note ---
Subjective Date Seen by a Provider: Jan 14, 2022 Time Seen by a Provider: 09:56 Subjective/Events-last exam (Tele-ICU Physician , Progress Note ) Available chart/ vitals / labs / Images reviewed Video assessment done using teleICU camera, rest of exam as per RN Discussed with RN Events overnight : FEBRILE hemodynamically stable Respiratory - 55 % I/O =pos Drips: Pressors- OFF 01/12 VENT SETTINGS and ABG reviewed Sedation: RASS -2 discussed with RN , fent 100 precedex 0.7 - open eyes NOT CANDIDATE for SBTreviewed possible contraindications including Cardiovascular Stability /Sedation Score / FI02/PEEP / ABG / CXR/ secretions Consultants: Hospital course: (01/08) 61yr F admitted for Septic Shock, Pneumonia, Acute Respiratory Failure with Hypoxia Intubated (01/10)bronch 01/13-- NOT FOLLOW COMMANDS 01/13 on sedation vacation , eyes open ( prededex , fentanyl 1-/ - follows command , psych meds resumed Acute resp failure - with PNA - intubated 01/10 -AC 25 400 50% +8 - acidosi is improving - CPM secretions abundunt - cont nebs -gentle diuresis septic shock - OFF levo 01/12 Hyponatremia ? SAIDH with PNA - NOW IN 140s -- Na 115 on presentation 01/07 normalised by 01/09 - to increase 100 cc q4 TF h2o Multilobar Right>>>L PNA ( neg lefionella , neg flu and covid - s/p FOB 01/10 - cx + MRSA presumed -sputum cx 01/08 - MRSA -on cefepime and vanco - Eraxis 01/12 Mild coagulopath y - INR 1.6 --> inr 2.2 -> improved Encephalopaty ( secondary to overdose vs hyponatremia. - CTH neg - Had moderate response to narcan on admission - now on precedex NOT FOLLOW COMMANDS 01/13 on sedation vacation , awake Constipation ( by KUB 01/12 - bowel regiment JULIAN- RESOLVED s/p fall 01/07 - patient educator scans in ER neg --> d/c home Nutrition -stopped 01/13 after vomiting - KUB 01/12 - moved bowels 01/13 - to regime TGF with regaln -TF 20 ml/h Mildly elev LFT - stable , monitor Correct lytes Lines : R PICC , (Central Line Necessity Reviewed) Peña: + OG: Nutrition: TF 40 jevity KUB 01/12 Analgesia: Anxiety/ delirium VTE Prophylaxis: zina 40 Stress Ulcer Prophylaxis: ppi Plans in collaboration with bedside consultants and IM MDs. Discussed with RN to reach out if any questions or concerns additional total of 32 minutes of critical care time was devoted to this patient today, required to treat and/or prevent further deterioration of critical care condition ( as above ) . Sepsis Event Evaluation Height, Weight, BMI Height: 5'5.00" Weight: 129lbs. 4.0oz. [id number]; 25.54 BMI Method: Focused Exam Time of Focused Exam: 214 Exam Exam Patient acknowledged, consented, and participated in this virtual visit which was conducted using real time audio/video Vital Signs Date Time Temp Pulse Resp B/P (MAP) Pulse Ox O2 Delivery O2 Flow Rate FiO2 01/14/22 08:00 50 01/14/22 08:00 105 01/14/22 08:00 98 Mechanical Ventilator 50 01/14/22 08:00 37.2 01/14/22 06:52 97 27 95 50 01/14/22 06:00 110 22 106/66 (79) 95 Mechanical Ventilator 50.00 01/14/22 05:00 101 22 110/59 (76) 94 Mechanical Ventilator 50.00 01/14/22 04:29 50 01/14/22 04:00 101 24 105/59 (74) 93 Mechanical Ventilator 50.00 01/14/22 04:00 93 Mechanical Ventilator 50 01/14/22 03:00 101 24 103/57 (72) 94 Mechanical Ventilator 50.00 01/14/22 02:38 100 25 97 50 01/14/22 02:28 Mechanical Ventilator 50.00 01/14/22 02:00 120 19 119/68 (85) 95 Mechanical Ventilator 50.00 01/14/22 01:00 104 01/14/22 01:00 104 23 111/62 (78) 95 Mechanical Ventilator 50.00 01/14/22 00:21 36.1 01/14/22 00:00 108 20 104/57 (73) 92 Mechanical Ventilator 50.00 01/14/22 00:00 91 Mechanical Ventilator 50 01/14/22 00:00 50 01/13/22 23:00 120 31 92/56 (68) 92 Mechanical Ventilator 50.00 01/13/22 22:36 37.6 Mechanical Ventilator 50.00 01/13/22 22:29 140 25 92 50 01/13/22 22:00 133 28 160/97 (118) 92 Mechanical Ventilator 50.00 01/13/22 21:18 37.6 01/13/22 21:00 134 30 148/91 (110) 91 Mechanical Ventilator 50.00 01/13/22 20:34 38.2 01/13/22 20:20 38.0 01/13/22 20:00 137 31 137/109 (118) 91 Mechanical Ventilator 50.00 01/13/22 20:00 92 Mechanical Ventilator 50 01/13/22 20:00 50 01/13/22 19:36 37.8 34 Mechanical Ventilator 50.00 01/13/22 19:00 125 01/13/22 19:00 133 27 96 50 01/13/22 19:00 125 162/97 (118) 100 Mechanical Ventilator 50.00 01/13/22 18:00 121 35 137/87 (104) 95 Mechanical Ventilator 50.00 01/13/22 17:00 140 20 150/99 (116) 95 Mechanical Ventilator 50.00 01/13/22 16:28 50 01/13/22 16:00 146 18 161/96 (117) 95 Mechanical Ventilator 50.00 01/13/22 16:00 98 Mechanical Ventilator 50 01/13/22 15:51 37.4 01/13/22 15:51 150 165/105 01/13/22 15:06 133 30 96 50 01/13/22 15:00 128 26 155/103 (120) 97 Mechanical Ventilator 50.00 01/13/22 14:00 117 21 148/98 (115) 98 Mechanical Ventilator 50.00 01/13/22 13:00 110 26 139/96 (110) 97 Mechanical Ventilator 50.00 01/13/22 12:28 50 01/13/22 12:24 100 01/13/22 12:00 123 27 147/98 (114) 97 Mechanical Ventilator 50.00 01/13/22 12:00 98 Mechanical Ventilator 50 01/13/22 11:21 37.6 01/13/22 11:00 128 22 150/101 (117) 98 Mechanical Ventilator 50.00 01/13/22 10:56 125 27 98 50 10/19/22 10:47 118 146/102 10/19/22 10:00 116 19 148/92 (110) 98 Mechanical Ventilator 50.00 I & O 01/14/22 07:00 Intake Total 4540 ml Output Total 2900 ml Balance 1640 ml Height & Weight Height: 5'5.00" Weight: 129lbs. 4.0oz. 58.588092xu; 25.54 BMI Method: General Appearance: No Apparent Distress, Other (intubated and sedated) HEENT: PERRL/EOMI, Normal ENT Inspection Neck: Normal Inspection, Supple Respiratory: Decreased Breath Sounds, Other (intubated and mechanically ventilated) Cardiovascular: Regular Rate, Rhythm, No JVD Capillary Refill: Less Than 3 Seconds Peripheral Pulses: 2+ Radial Pulses (L) Gastrointestinal: soft, distended (minimal) Extremity: Normal Capillary Refill, Normal Inspection, Swelling Neurologic/Psychiatric: No Alert, No Oriented x3; Other (sedated) Skin: Normal Color, Warm/Dry Lymphatic: No Adenopathy Results Lab Laboratory Tests 01/13/22 04:35 01/14/22 05:12 Assessment/Plan Assessment/Plan 1 LOLIS KUMAR MD Jan 14, 2022 10:00
[2022-01-14] MEDS ORDERED: KCL 20 MEQ TAB (K-DUR) PO NR (10:30)
[2022-01-14 10:35] VITALS: BP 101/62
[2022-01-14] MEDS: ENOXAPARIN 40 MG/0.4 ML (LOVENOX) SYR SC SCH (10:45)
[2022-01-14] MEDS ORDERED: SODIUM PHOSPHATE INJ 30 MM in NS (IVPB) 250 ML INJ ONE (11:00)
[2022-01-14 14:03] VITALS: BP 101/57
[2022-01-14 15:34] LABS: POTASSIUM 2.8 MMOL/L (3.6-5.0)
[2022-01-14 15:39] LABS: CREATININE SERUM 0.56 MG/DL (0.60-1.30)
[2022-01-14 15:41] LABS: MAGNESIUM 1.8 MG/DL (1.6-2.4)
[2022-01-14] MEDS ORDERED: POTASSIUM CL 10MEQ/50ML IVPB 300 ML IV ONE (16:18)
[2022-01-14] MEDS: DexMEDEtomidine 250 ML DRIP 250 ML IV SCH (16:25)
[2022-01-14] MEDS ORDERED: KCL 20 MEQ TAB (K-DUR) PO ONE (16:30)
[2022-01-14 18:43] VITALS: BP 127/70
[2022-01-14] MEDS: AMITRIPTYLINE 25 MG (ELAVIL) TAB PO SCH (20:32)
[2022-01-14 22:58] VITALS: BP 113/64
[2022-01-15 02:25] VITALS: BP 113/64
[2022-01-15] MEDS: NOREPINEPHRINE 8 MG/250 ML 250 ML IV SCH (02:32)
[2022-01-15] MEDS: VASOPRESSIN INJECTION 20 UNIT in NS (IVPB) 100 ML IV SCH ×2 (02:32→13:37)
[2022-01-15 03:50] LABS: ABG BASE EXCESS 4.9 MMOL/L (-2.5-2.5); ABG OXYGEN SATURATION 96 % (94-100); ABG PCO2 43 MMHG (35-45); ABG PH 7.45 (7.37-7.43); ABG PO2 74 MMHG (79-93)
[2022-01-15 03:52] LABS: BASOPHILS # (AUTO) 0.1 10^3/uL (0.0-0.1); BASOPHILS % (AUTO) 0 % (0-10); EOSINOPHILS % (AUTO) 0 % (0-10); HEMATOCRIT 25 % (35-52); HEMOGLOBIN 8.3 g/dL (11.5-16.0); LYMPHOCYTES # (AUTO) 1.6 10^3/uL (1.0-4.0); LYMPHOCYTES % (AUTO) 8 % (12-44); MEAN CORPUSCULAR HEMOGLOBIN 30 pg (25-34); MEAN CORPUSCULAR HGB CONC 34 g/dL (32-36); MEAN CORPUSCULAR VOLUME 88 fL (80-99); MEAN PLATELET VOLUME 10.5 fL (9.0-12.2); MONOCYTES # (AUTO) 1.1 10^3/uL (0.0-1.0); MONOCYTES % (AUTO) 5 % (0-12); NEUTROPHILS # (AUTO) 17.7 10^3/uL (1.8-7.8); NEUTROPHILS % (AUTO) 85 % (42-75); PLATELET COUNT 168 10^3/uL (130-400); WHITE BLOOD COUNT 20.8 10^3/uL (4.3-11.0)
[2022-01-15 04:04] LABS: ALLENS TEST YES-POS; PATIENT TEMP 37.6; VENTILATOR NO
[2022-01-15 04:05] LABS: INSPIRED O2 50%
[2022-01-15] MEDS: aCETylcysteine 20% (MUCOMYST) 4 ML SOLN VIAL INH SCH ×4 (04:07→21:25)
[2022-01-15] MEDS: RT-ALBUTEROL/IPRATROPIUM 3 ML (DUONEB) VIAL INH SCH ×6 (04:07→21:24)
[2022-01-15 04:23] LABS: ALBUMIN 2.4 GM/DL (3.2-4.5); POTASSIUM 3.9 MMOL/L (3.6-5.0)
[2022-01-15 04:24] LABS: CALCIUM 8.6 MG/DL (8.5-10.1)
[2022-01-15] MEDS: POTASSIUM CL 10MEQ/50ML IVPB 50 ML IV SCH (04:24)
[2022-01-15 04:25] LABS: TOTAL PROTEIN 5.7 GM/DL (6.4-8.2)
[2022-01-15] MEDS: KCL 20 MEQ TAB (K-DUR) PO SCH (04:25)
[2022-01-15 04:27] LABS: BILIRUBIN,TOTAL 0.5 MG/DL (0.1-1.0)
[2022-01-15 04:28] LABS: PHOSPHORUS 2.8 MG/DL (2.3-4.7)
[2022-01-15 04:29] LABS: CREATININE SERUM 0.53 MG/DL (0.60-1.30)
[2022-01-15 04:30] LABS: BILIRUBIN,DIRECT 0.3 MG/DL (0.0-0.3); BILIRUBIN,INDIRECT 0.2 MG/DL
[2022-01-15 04:32] LABS: MAGNESIUM 1.9 MG/DL (1.6-2.4)
[2022-01-15] MEDS: MAGNESIUM 1 GM/100 ML IVPB 100 ML IV SCH (05:11)
[2022-01-15] MEDS: meTOprolol 5 MG/5 ML (LOPRESSOR) VIAL IV SCH ×3 (05:30→17:34)
[2022-01-15] MEDS: CEFEPIME INJECTION 1,000 MG in NS (IVPB) 50 ML IV SCH ×2 (05:30→12:26)
[2022-01-15] MEDS: CATHETER FLUSH 10 ML SYR IVP SCH ×3 (05:31→20:22)
--- NOTE | 2022-01-15 06:49 | Occ Therapy Progress Note ---
Therapy Progress Note Pt currently intubated. OT to monitor pt's status then will initiate treatment when pt is medically stable and able to actively participate in skilled therapy. SAI MIJARES Jan 15, 2022 06:49
[2022-01-15 07:00] VITALS: BP 146/89
--- NOTE | 2022-01-15 07:26 | Progress Note ---
PRESTON MAI 01/15/22 0726: Subjective Date Seen by a Provider: Jan 15, 2022 Time Seen by a Provider: 08:10 Subjective/Events-last exam Following up on MRSA pneumonia and respiratory failure Patient is still intubated and sedated Status unchanged Patient has gained 3 kg since yesterday Patient restarted parenteral nutrition Fi02 is at 50% today, PEEP of 8 Patient will open eyes to hearing name, and following all commands Patient has had no bowel movement since 01-13 Patient alert to stimuli Labs reviewed Focused Exam Time of Focused Exam: 214 Objective Exam Last Set of Vital Signs Vital Signs Date Time Temp Pulse Resp B/P (MAP) Pulse Ox O2 Delivery O2 Flow Rate FiO2 01/15/22 06:00 116 27 134/80 (98) 95 Mechanical Ventilator 50.00 01/15/22 03:54 50 01/15/22 03:37 37.6 Capillary Refill : Less Than 3 Seconds I&O Intake and Output 01/15/22 00:00 Intake Total 4410 ml Output Total 3875 ml Balance 535 ml Intake Oral 0 ml IV Total 3190 ml Tube Feeding 590 ml Other 630 ml Output Urine Total 3875 ml General: Alert, Moderate Distress, Other (Follows commands ) HEENT: Atraumatic Neck: Supple, Other (Left sided JVD) Lungs: Other (Right lungs minor increase in breath sounds compared to yesterday. Same for the left) Heart: Normal S1, Normal S2 Abdomen: Normal Bowel Sounds, Soft Extremities: No Clubbing, No Cyanosis, No Tenderness/Swelling (Upper extermites still holding fluid) Skin: No Rashes, No Breakdown Neuro: Normal Tone Results Lab Laboratory Tests 01/14/22 08:25: Glucometer 130H 01/14/22 11:20: Glucometer 120H 01/14/22 15:15: Sodium Level 151H, Potassium Level 2.8L, Chloride Level 115H, Carbon Dioxide Level 28, Anion Gap 8, Blood Urea Nitrogen 17, Creatinine 0.56L, Estimat Glomerular Filtration Rate 104, BUN/Creatinine Ratio 30, Glucose Level 132H, Calcium Level 8.0L, Magnesium Level 1.8 01/14/22 17:27: Glucometer 111H 01/14/22 19:39: Glucometer 115H 01/15/22 00:04: Glucometer 115H 01/15/22 03:41: Blood Gas Puncture Site RIGHT RADIAL, Blood Gas Patient Temperature 37.6, Arterial Blood pH 7.45H, Arterial Blood Partial Pressure CO2 43, Arterial Blood Partial Pressure O2 74L, Arterial Blood HCO3 29H, Arterial Blood Total CO2 30.0, Arterial Blood Oxygen Saturation 96, Arterial Blood Base Excess 4.9H, Wiley Test YES-POS, Blood Gas Ventilator Setting NO, Blood Gas Inspired Oxygen 50% 01/15/22 03:43: White Blood Count 20.8H, Red Blood Count 2.80L, Hemoglobin 8.3L, Hematocrit 25L, Mean Corpuscular Volume 88, Mean Corpuscular Hemoglobin 30, Mean Corpuscular Hemoglobin Concent 34, Red Cell Distribution Width 15.9H, Platelet Count 168, Mean Platelet Volume 10.5, Immature Granulocyte % (Auto) 2, Neutrophils (%) (Auto) 85H, Lymphocytes (%) (Auto) 8L, Monocytes (%) (Auto) 5, Eosinophils (%) (Auto) 0, Basophils (%) (Auto) 0, Neutrophils # (Auto) 17.7H, Lymphocytes # (Auto) 1.6, Monocytes # (Auto) 1.1H, Eosinophils # (Auto) 0.0, Basophils # (Auto) 0.1, Immature Granulocyte # (Auto) 0.4H, Sodium Level 150H, Potassium Level 3.9, Chloride Level 114H, Carbon Dioxide Level 27, Anion Gap 9, Blood Urea Nitrogen 16, Creatinine 0.53L, Estimat Glomerular Filtration Rate 105, BUN/Creatinine Ratio 30, Glucose Level 114H, Calcium Level 8.6, Corrected Calcium 9.9, Phosphorus Level 2.8, Magnesium Level 1.9, Total Bilirubin 0.5, Direct Bilirubin 0.3, Indirect Bilirubin 0.2, Aspartate Amino Transf (AST/SGOT) 50H, Alanine Aminotransferase (ALT/SGPT) 76H, Alkaline Phosphatase 96, Total Protein 5.7L, Albumin 2.4L Microbiology 01/10/22 Gram Stain - Final, Resulted 01/10/22 Bronchial Culture - Final, Resulted Staphylococcus aureus 01/10/22 Fungal Culture 1 - Preliminary, Resulted 01/08/22 Urine Culture - Final, Complete NO GROWTH 01/07/22 Blood Culture - Final, Complete No growth Assessment/Plan Assessment/Plan Assess & Plan/Chief Complaint Septic shock Continue with Vancomycin and cefepime Monitor Vitals- BP and HR holding stable Continue IV fluids Still on percedex and fentanyl MRSA pneumonia Continue Vancomycin Chest x-ray mild improvement from 01-13-2022 Awating Fungal Path- Growing some candidasis species Continue Eraxis Acute respiratory failure with hypoxia Currently intubated Monitor ABG Bronchoscopy performed-No pathology found, just erythema Administer daily lasix 40 mg- with potassium 20 mg PO Started on cyclobenzaprine, buspirone, quetiapine Endotracheally intubated Monitor ABG's Abdominal distention/Constipation Obtain X-ray KUB Coagulopathy- INR 1.6 Hypernatremia- currently 150 Continue fluids Slow parenteral feedings Constipation-Resolved Given methylnaltrexone and suppository Septic encephalopathy Continue spetic shock management Supportive Care Acute kidney injury-Resolved Continue IV fluids Tachycardia/HTN-improved Start metoprolol 10 mg IV Q6H DVT prophylaxis Administer Lovenox Hypoalbuinemia Currently on parenteral nutrition Hypophosphatemia On replacement per protocol Hypomagnesemia On replacement per protocol Hypokalemia-Currently resolved Monitor Clinical Quality Measures Admission Status Admission Dx Bilateral Pneumonia- Awaiting Blood Cultures Started on Cefepime and Doxycycline Continue Supportive Care Acute Respiratory Failure- Started on BiPAP Manage Pneumonia Monitor O2- consider intubation AMS-Possible secondary to Polypharmacy Review medication list Start Narcan Drip Septic Shock- Antibiotics started Continue fluids started Pressers administered JULIAN- Creatinine Currently 1.35 Continue IV fluids Hyponatremia- Continue IV fluids Consider replacement Hypoalbuminemia- Currently NPO but will supplement when able Elevated Creatine Kinase Continue IV fluids Dyspepsia/GERD Start pantoprazole BID ROBERT DUKES DO 01/15/22 1130: Supervisory-Addendum Brief Verification & Attestation Participated in pt care: history, physical Personally performed: exam, history, supervision of care Care discussed with: Medical Student Procedures: n/a Results interpretation: Verified all documentation Patient seen and assessed. More awake and alert today and answering questions and following commands. She is tachycardic and may be intravascularly dry but CXR still shows interstitial edema and she is 3rd spacing as well as up 1kg from yesterday. Will increase IVF rate back up to 100mg with gentle diuresis of lasix 20mg dhillon to ongoing interstitial edema. CXR does look improved today especially on left but still coarse on physical exam. Did have some mild discomfort in lower abdomen on physical exam and has not had a BM since 01/13/22 so will repeat relistor with another dulcolax suppository. PRESTON MAI Jan 15, 2022 07:26 ROBERT DUKES DO Jan 15, 2022 11:30
--- NOTE | 2022-01-15 07:35 | Physical Therapy Progress Note ---
Therapy Progress Note Pt is currently intubated. PT to monitor pt's status then will initiate treatment when pt is medically stable and able to actively participate in skilled therapy. JUAN ALBERTO PAZ PT Jan 15, 2022 07:35
--- NOTE | 2022-01-15 08:41 | Diagnostic Imaging Report ---
INDICATION: Ventilated patient, respiratory distress. FINDINGS: ET tube mid to lower thoracic trachea in good alignment. PICC line and OG catheter stable. Five lobed infiltrates remain severe although have improved particularly in the left lung. IMPRESSION: Improvements in 5 lobed infiltrates with stable support apparatus. Dictated by: Dictated on workstation # [id number]
[2022-01-15] MEDS ORDERED: FUROSEMIDE 40 MG/4 ML INJ (LASIX) IVP ONE ×2 (08:45→10:45)
[2022-01-15] MEDS ORDERED: KCL 20 MEQ TAB (K-DUR) PO ONE (08:45)
[2022-01-15] MEDS ORDERED: FUROSEMIDE 40 MG/4 ML INJ (LASIX) IVP SCH (09:00)
[2022-01-15] MEDS: PANTOPRAZOLE 40 MG (PROTONIX) VIAL IV SCH ×2 (09:10→20:21)
[2022-01-15] MEDS: ANIDULAFUNGIN INJECTION 100 MG in NS (IVPB) 100 ML IV SCH (09:10)
[2022-01-15] MEDS: VANCOMYCIN 1 GM/NS 250 ML IVPB IV SCH ×4 (09:11→20:21)
[2022-01-15] MEDS: ENOXAPARIN 40 MG/0.4 ML (LOVENOX) SYR SC SCH (09:11)
[2022-01-15] MEDS: METOCLOPRAMIDE INJ 10 MG/2 ML (REGLAN) IVP SCH ×4 (09:11→20:21)
[2022-01-15] MEDS: MUPIROCIN 2% OINT 22 GM (BACTROBAN) TUBE NSEACH SCH ×2 (09:12→20:21)
[2022-01-15] MEDS: CYCLOBENZAPRINE 10 MG (FLEXERIL) TAB PO SCH ×3 (09:12→20:21)
[2022-01-15] MEDS: GABAPENTIN 600 MG (NEURONTIN) TAB PO SCH ×3 (09:12→20:21)
[2022-01-15] MEDS: busPIRone 15 MG (BUSPAR) TABLET PO SCH (09:13)
[2022-01-15] MEDS: QUEtiapine 100 MG (SEROquel) TAB IMMEDIATE RELEASE PO SCH ×2 (09:13→20:21)
[2022-01-15] MEDS: ACETAMINOPHEN 325 MG TABLET NG PRN (09:13)
--- NOTE | 2022-01-15 09:18 | Tele-ICU Progress Note ---
Subjective Date Seen by a Provider: Jan 15, 2022 Subjective/Events-last exam This virtual visit was conducted using real time audio/video. 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 Recent events: MRSA pna, sepsis, AECOPD. Intubated 01/08. Also JULIAN, pos urine tox. PE: Sedated on lazara. VSS. O2 sat 94% on AC 25/400/50%/+6. HEENT: No obvious masses, adenopathy or JVD. Chest: Very coarse on auscultation. CV: RRR S1 S2 No murmur or added sounds. Abd: Non-tender. Bowel sounds Y. : Unremarkable. Peña Y. [facility] MGR/psychiatric: Grossly intact. No obvious focal findings. Extremities: 1-2+ edema. Capillary refill < 3 seconds. Skin: unremarkable. Results: Elevated Na 150, WCC 21.8, BG 114, D-Dimer 3.92. Decreased Hb 8.3. B.45/43/74 on 50%. CXR: Hyperinflated, extensive R infilt. Video assessment done using teleICU camera, rest of exam as per RN. A/P: Respiratory insufficiency: Continue present management with vent. Will try to wean FiO2 and do possible SBT. Monitor for increasing oxygenation needs. Cont vent., duon., Prec., Fent., mucomyst. Critical Care: critically ill patient. Cont. abx, PPI, Juan., antifungal, metop., reglan, flexeril, amitrip., buspar, seroquel. RN to obtain Psych history from family. To receive free H2O. Discussed with RN Ali. Asked RN to reach out to eICU if any questions or concerns later. Time spent with patient/coordination of care with other health professionals (mins): 31 Sepsis Event Evaluation Height, Weight, BMI Height: 5'5.00" Weight: 129lbs. 4.0oz. 58.451299vo; 26.83 BMI Method: Focused Exam Time of Focused Exam: 214 Exam Exam Patient acknowledged, consented, and participated in this virtual visit which was conducted using real time audio/video Vital Signs Date Time Temp Pulse Resp B/P (MAP) Pulse Ox O2 Delivery O2 Flow Rate FiO2 01/15/22 08:51 37.1 01/15/22 08:00 130 145/92 (109) 95 Mechanical Ventilator 50.00 01/15/22 07:56 37.4 01/15/22 07:00 130 01/15/22 07:00 128 30 95 50 01/15/22 07:00 129 146/93 (110) 96 Mechanical Ventilator 50.00 01/15/22 06:00 116 27 134/80 (98) 95 Mechanical Ventilator 50.00 01/15/22 05:00 133 26 138/80 (99) 95 Mechanical Ventilator 50.00 01/15/22 04:00 134 26 130/74 (92) 94 Mechanical Ventilator 50.00 01/15/22 03:54 50 01/15/22 03:45 95 Mechanical Ventilator 50 01/15/22 03:37 37.6 01/15/22 03:00 131 30 133/78 (96) 94 Mechanical Ventilator 50.00 01/15/22 02:25 123 31 95 50 01/15/22 02:00 134 27 128/78 (95) 93 Mechanical Ventilator 50.00 01/15/22 01:40 133 01/15/22 01:00 131 29 128/75 (92) 93 Mechanical Ventilator 50.00 01/15/22 00:00 126 27 116/73 (87) 93 Mechanical Ventilator 50.00 01/14/22 23:34 50 01/14/22 23:30 93 Mechanical Ventilator 50 01/14/22 23:30 37.1 131 25 134/76 (95) 94 Mechanical Ventilator 50.00 01/14/22 23:00 123 25 119/65 (83) 95 Mechanical Ventilator 50.00 01/14/22 22:58 123 31 95 50 01/14/22 22:00 126 25 116/64 (81) 94 Mechanical Ventilator 50.00 01/14/22 21:00 130 27 114/63 (80) 94 Mechanical Ventilator 50.00 01/14/22 21:00 135 26 125/65 (85) 94 Mechanical Ventilator 50.00 01/14/22 20:19 50 01/14/22 20:00 126 26 135/86 (102) 95 Mechanical Ventilator 50.00 01/14/22 19:44 126 01/14/22 19:30 94 Mechanical Ventilator 50 01/14/22 19:00 37.1 129 27 126/74 (91) 94 Mechanical Ventilator 50.00 01/14/22 19:00 128 24 126/71 (89) 95 Mechanical Ventilator 50.00 01/14/22 18:43 124 32 96 50 01/14/22 18:00 123 25 119/66 (83) 95 Mechanical Ventilator 50.00 01/14/22 17:00 117 23 114/66 (82) 95 Mechanical Ventilator 50.00 01/14/22 16:28 50 01/14/22 16:25 116 115/59 01/14/22 16:00 37.7 01/14/22 16:00 124 23 117/56 (76) 96 Mechanical Ventilator 50.00 01/14/22 16:00 98 Mechanical Ventilator 50 01/14/22 15:00 122 25 111/61 (78) 95 Mechanical Ventilator 50.00 01/14/22 14:03 128 28 96 50 01/14/22 14:00 121 23 115/57 (76) 96 Mechanical Ventilator 50.00 01/14/22 13:50 124 01/14/22 13:41 115 107/57 01/14/22 13:00 112 22 103/53 (70) 95 Mechanical Ventilator 50.00 01/14/22 12:28 50 01/14/22 12:00 113 21 100/48 (65) 96 Mechanical Ventilator 50.00 01/14/22 12:00 98 Mechanical Ventilator 50 01/14/22 11:59 36.9 01/14/22 11:00 111 20 99/55 (70) 95 Mechanical Ventilator 50.00 01/14/22 10:35 110 29 95 50 01/14/22 10:00 116 96/54 (68) 96 Mechanical Ventilator 50.00 I & O0 01/15/22 07:00 Intake Total 4405 ml Output Total 4450 ml Balance -45 ml Height & Weight Height: 5'5.00" Weight: 129lbs. 4.0oz. 58.200130ij; 26.83 BMI Method: General Appearance: No Apparent Distress, Other (intubated and sedated) HEENT: PERRL/EOMI, Normal ENT Inspection Neck: Normal Inspection, Supple Respiratory: Decreased Breath Sounds, Other (intubated and mechanically ventilated) Cardiovascular: Regular Rate, Rhythm, No JVD Capillary Refill: Less Than 3 Seconds Peripheral Pulses: 2+ Radial Pulses (L) Gastrointestinal: soft, distended (minimal) Extremity: Normal Capillary Refill, Normal Inspection, Swelling Neurologic/Psychiatric: No Alert, No Oriented x3; Other (sedated) Skin: Normal Color, Warm/Dry Lymphatic: No Adenopathy Results Lab Laboratory Tests 01/14/22 05:12 01/14/22 15:15 01/15/22 03:43 Assessment/Plan Assessment/Plan See free text Critical Care: Ventilator Management JERAD MALDONADO MD Jan 15, 2022 09:18
[2022-01-15] MEDS ORDERED: LACTATED RINGERS 1,000 ML IV ONE (10:23)
[2022-01-15] MEDS: LACTATED RINGERS 1,000 ML IV SCH ×2 (10:39→20:21)
[2022-01-15 10:59] VITALS: BP 118/73
[2022-01-15] MEDS ORDERED: BISACODYL 10 MG SUPP (DULCOLAX) PR NR (12:00)
[2022-01-15] MEDS ORDERED: METHYLNALTREXONE 12 MG/0.6 ML (RELISTOR) VIAL SQ NR (12:00)
[2022-01-15] MEDS: fentaNYL DRIP PRE-MIX 250 ML IV SCH (13:26)
[2022-01-15 14:50] VITALS: BP 110/62
[2022-01-15 18:35] VITALS: BP 136/80
[2022-01-15] MEDS: AMITRIPTYLINE 25 MG (ELAVIL) TAB PO SCH (20:21)
[2022-01-15 21:25] VITALS: BP 141/92
[2022-01-16] MEDS ORDERED: FUROSEMIDE 40 MG/4 ML INJ (LASIX) IVP SCH (09:00)
== END 2022-01-15 23:10 | disposition short-term general hospital (02) | DRG 870 ==
LOC: EDUNIT# 23:09 → ER 23:12 → ICU 01-08 02:41
PROVIDERS: ADMIT Family Medicine; ATTEND Family Medicine
PROC: 5A1955Z Respiratory Ventilation, Greater than 96 Consecutive Hours (ICD-10-PCS; principal; 2022-01-08)
PROC: 0BH18EZ Insertion of Endotracheal Airway into Trachea, Via Natural or Artificial Opening Endoscopic (ICD-10-PCS; 2022-01-08)
PROC: 5A09357 Assistance with Respiratory Ventilation, Less than 24 Consecutive Hours, Continuous Positive Airway Pressure (ICD-10-PCS; 2022-01-08)
PROC: 0B978ZX Drainage of Left Main Bronchus, Via Natural or Artificial Opening Endoscopic, Diagnostic (ICD-10-PCS; 2022-01-10)
PROC: 0B938ZX Drainage of Right Main Bronchus, Via Natural or Artificial Opening Endoscopic, Diagnostic (ICD-10-PCS; 2022-01-10)
DX: A41.02 Sepsis due to Methicillin resistant Staphylococcus aureus (principal); G93.41 Metabolic encephalopathy; R65.21 Severe sepsis with septic shock; J15.212 Pneumonia due to Methicillin resistant Staphylococcus aureus; J96.01 Acute respiratory failure with hypoxia; J96.02 Acute respiratory failure with hypercapnia; E87.1 Hypo-osmolality and hyponatremia; N17.9 Acute kidney failure, unspecified; J44.0 Chronic obstructive pulmonary disease with (acute) lower respiratory infection; J44.1 Chronic obstructive pulmonary disease with (acute) exacerbation; E87.20 Acidosis, unspecified; E88.09 Other disorders of plasma-protein metabolism, not elsewhere classified; K21.9 Gastro-esophageal reflux disease without esophagitis; F17.210 Nicotine dependence, cigarettes, uncomplicated; F41.9 Anxiety disorder, unspecified; F32.A Depression, unspecified; G89.29 Other chronic pain; E83.42 Hypomagnesemia; E83.39 Other disorders of phosphorus metabolism; K59.00 Constipation, unspecified; E87.6 Hypokalemia
CPT/HCPCS: 36415; 36569; 51702; 70450; 71045; 71250; 72125; 74018; 74176; 76937; 80048; 80053; 80061; 80076; 80202; 80306; 80320; 80329; 81000; 82140; 82248; 82533; 82550; 82805; 82947; 83605; 83735; 83874; 83880; 84100; 84145; 84484; 85007; 85025; 85027; 85379; 85610; 85730; 86141; 87040; 87070; 87077; 87081; 87088; 87101; 87186; 87205; 87449; 87636; 93005; 93041; 94002; 94003; 94640; 94660; 94799; 96361; 96365; 96367; 96372; 96375; 96376

== ENCOUNTER 2022-03-01 12:37 | Emergency (ER) | payer OTHER ==
[~2022-03-01] VITALS: Ht 160 cm; Wt 54.0 kg
[~2022-03-01 12:37] MED LIST changes: +ALBU8.5H6 IH; +BUSP30TA2 PO; +CYCL10TA25 PO; +MULT-10 PO; +ONDA4TAB11 PO; +PANT40TA52 PO; +QUET300T90 PO; +QUET50TA23 PO; -QUET50TA79 PO; +QUET50TA93 PO; -RT-ALBUINH IH
--- NOTE | 2022-03-01 12:50 | ED General ---
General Chief Complaint: General Problems/Pain Stated Complaint: CHANGE IN MENTAL STATUS Nursing Triage Note: ARRIVED VIA EMS FROM HOME. DC FROM [facility] ON TUESDAY ET FAMILY STATES SHE HAS HAD A CHANGE IN MENTAL STATUS AND WOULD LIKE HER ADMITTED TO REHAB. PT DID NOT WANT TO COME ET STATES SHE FEELS FINE. Source of Information: Patient, EMS Exam Limitations: No Limitations History of Present Illness Date Seen by Provider: Mar 01, 2022 Time Seen by Provider: 12:39 Initial Comments 61-year-old female that recently had a prolonged ICU stay with trach recently removed coming in via EMS from home due to family's concern for altered mental status. The patient is with stating she feels normal, and had some difficulty getting up from her bed this morning, but otherwise has been getting around well with a walker. Family would like her to go to rehab. She is denying any chest pain, shortness of breath, abdominal pain, nausea, vomiting, diarrhea, fever, chills, new focal weakness or numbness, or any other concerns Allergies and Home Medications Allergies Coded Allergies: No Known Drug Allergies (Unverified , 04/01/11) Patient Home Medication List Home Medication List Reviewed: Yes Albuterol Sulfate (Ventolin Hfa) 1 Puff Puff, 2 PUFF IH Q4H PRN for SHORTNESS OF BREATH, (Reported) Entered as Reported by: TAY ARIAS on 05/28/21935 Amitriptyline HCl (Amitriptyline HCl) 50 Mg Tablet, 50-100 MG PO HS PRN for SLEEP, (Reported) Entered as Reported by: TAY ARIAS on 01/08/221515 Biotin (Biotin) 2,500 Mcg Capsule, 2,500 MCG PO DAILY, (Reported) Entered as Reported by: TAY ARIAS on 05/28/21935 Buspirone HCl (Buspirone HCl) 30 Mg Tablet, 30 MG PO DAILY, (Reported) Entered as Reported by: TAY ARIAS on 01/08/221515 Buspirone HCl (Buspirone HCl) 30 Mg Tablet, 30 MG PO 1800 PRN for ANXIETY, (Reported) Entered as Reported by: TAY ARIAS on 01/08/221515 Calcium Carbonate (Calcium) 600 Mg Tablet, 600 MG PO DAILY, (Reported) Entered as Reported by: TAY ARIAS on 05/28/21935 Cholecalciferol (Vitamin D3) (Vitamin D3) 50 Mcg Capsule, 50 MCG PO DAILY, (Reported) Entered as Reported by: TAY ARIAS on 05/28/21935 Clonazepam (Clonazepam) 0.5 Mg Tablet, 0.25 MG PO TID, (Reported) Entered as Reported by: ALFONZO ISIDRO on 05/27/21 1641 Cyanocobalamin (Vitamin B-12) (Vitamin B-12) 1,000 Mcg Tablet, 1,000 MCG PO DAILY, (Reported) Entered as Reported by: TAY ARIAS on 05/28/21936 Cyclobenzaprine HCl (Cyclobenzaprine HCl) 10 Mg Tablet, 10 MG PO TID, (Reported) Entered as Reported by: TAY ARIAS on 01/08/22 152 Gabapentin (Gabapentin) 600 Mg Tablet, 600 MG PO TID, (Reported) Entered as Reported by: TAY ARIAS on 05/28/21936 Hydrocodone/Acetaminophen (Hydrocodone-Acetamin 10-325 mg) 1 Each Tablet, 1 EACH PO QID PRN for PAIN-MODERATE (5-7), (Reported) Entered as Reported by: TAY ARIAS on 05/28/21936 Multivitamin (Multivitamins) 1 Each Tablet, 1 EACH PO DAILY, (Reported) Entered as Reported by: BHUPENDRA PARKS on 06/22/16 132 Multivits,Stress Formula (Stress Formula) 1 Each Tablet, 1 EACH PO DAILY, (Reported) Entered as Reported by: TAY ARIAS on 01/08/22 151 Ondansetron (Ondansetron Odt) 4 Mg Tab.rapdis, 4 MG PO Q6H PRN for NAUSEA/VOMITING-1ST LINE, (Reported) Entered as Reported by: TAY ARIAS on 01/08/22 151 Pantoprazole Sodium (Pantoprazole Sodium) 40 Mg Tablet.dr, 40 MG PO BID, (Reported) Entered as Reported by: TAY ARIAS on 01/08/221515 Pravastatin Sodium (Pravastatin Sodium) 40 Mg Tablet, 40 MG PO HS, (Reported) Entered as Reported by: BHUPENDRA PARKS on 06/22/16 132 Quetiapine Fumarate (Quetiapine Fumarate ER) 300 Mg Tab.er.24h, 300 MG PO HS, (Reported) Entered as Reported by: TAY ARIAS on 01/08/22 1516 Quetiapine Fumarate (Quetiapine Fumarate) 50 Mg Tablet, 50 MG PO HS PRN for INSOMNIA, (Reported) Entered as Reported by: TAY ARIAS on 01/08/22 1516 Vortioxetine Hydrobromide (Trintellix) 20 Mg Tablet, 20 MG PO DAILY, (Reported) Entered as Reported by: TAY ARIAS on 05/28/21 0936 Review of Systems Review of Systems Constitutional: No fever EENTM: no symptoms reported Respiratory: no symptoms reported Cardiovascular: no symptoms reported Gastrointestinal: no symptoms reported Genitourinary: no symptoms reported Musculoskeletal: no symptoms reported Skin: no symptoms reported Psychiatric/Neurological: See HPI Hematologic/Lymphatic: No Symptoms Reported Immunological/Allergic: no symptoms reported All Other Systems Reviewed Negative Unless Noted: Yes Past Dgesmsa-Ofghoo-Uztgux Hx Patient Social History Tobacco Use?: Yes Smoking Status: Former Smoker Alcohol Use?: No Immunizations Up To Date First/Initial COVID19 Vaccinat: UNKNOWN Second COVID19 Vaccination Sergey: 04/25/20 Third COVID19 Vaccination Date: 01/22/21 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 4.0oz. 58.452140dw; 21.00 BMI Method: General Appearance: No Apparent Distress, WD/WN Eyes: Bilateral Eye Normal Inspection HEENT: PERRL/EOMI, Normal ENT Inspection, Pharynx Normal Neck: Full Range of Motion, Normal Inspection, Non Tender, Supple Respiratory: Chest Non Tender, Lungs Clear, Normal Breath Sounds, No Accessory Muscle Use, No Respiratory Distress Cardiovascular: Regular Rate, Rhythm, No Edema, Normal Peripheral Pulses Gastrointestinal: Normal Bowel Sounds, Non Tender, Soft Back: Normal Inspection, No CVA Tenderness, No Vertebral Tenderness Extremity: Normal Capillary Refill, Normal Inspection, Normal Range of Motion, Non Tender, No Calf Tenderness, No Pedal Edema Neurologic/Psychiatric: Alert, No Motor/Sensory Deficits, Normal Mood/Affect Skin: Normal Color, Warm/Dry Lymphatic: No Adenopathy Procedures/Interventions Date of ETT Placement: Jan 08, 2022 Progress/Results/Core Measures Suspected Sepsis SIRS Temperature: Pulse: 105 Respiratory Rate: 16 Laboratory Tests 03/01/22 13:06: White Blood Count 12.2H Blood Pressure 133 /90 Mean: 104 Laboratory Tests 03/01/22 13:06: Creatinine 0.73, Platelet Count 212, Total Bilirubin 0.5 Results/Orders Lab Results Laboratory Tests Test 03/01/22 13:06 Range/Units White Blood Count 12.2 H 4.3-11.0 10^3/uL Red Blood Count 2.68 L 3.80-5.11 10^6/uL Hemoglobin 8.2 L 11.5-16.0 g/dL Hematocrit 24 L 35-52 % Mean Corpuscular Volume 90 80-99 fL Mean Corpuscular Hemoglobin 31 25-34 pg Mean Corpuscular Hemoglobin Concent 34 32-36 g/dL Red Cell Distribution Width 13.1 10.0-14.5 % Platelet Count 212 130-400 10^3/uL Mean Platelet Volume 8.3 L 9.0-12.2 fL Immature Granulocyte % (Auto) 1 % Neutrophils (%) (Auto) 82 H 42-75 % Lymphocytes (%) (Auto) 11 L 12-44 % Monocytes (%) (Auto) 7 0-12 % Eosinophils (%) (Auto) 0 0-10 % Basophils (%) (Auto) 0 0-10 % Neutrophils # (Auto) 10.0 H 1.8-7.8 10^3/uL Lymphocytes # (Auto) 1.3 1.0-4.0 10^3/uL Monocytes # (Auto) 0.8 0.0-1.0 10^3/uL Eosinophils # (Auto) 0.0 0.0-0.3 10^3/uL Basophils # (Auto) 0.0 0.0-0.1 10^3/uL Immature Granulocyte # (Auto) 0.1 0.0-0.1 10^3/uL Sodium Level 123 *L 135-145 MMOL/L Potassium Level 4.1 3.6-5.0 MMOL/L Chloride Level 91 L 98-107 MMOL/L Carbon Dioxide Level 22 21-32 MMOL/L Anion Gap 10 5-14 MMOL/L Blood Urea Nitrogen 15 7-18 MG/DL Creatinine 0.73 0.60-1.30 MG/DL Estimat Glomerular Filtration Rate 94 BUN/Creatinine Ratio 21 Glucose Level 98 70-105 MG/DL Calcium Level 8.7 8.5-10.1 MG/DL Corrected Calcium 9.2 8.5-10.1 MG/DL Magnesium Level 1.6 1.6-2.4 MG/DL Total Bilirubin 0.5 0.1-1.0 MG/DL Aspartate Amino Transf (AST/SGOT) 17 5-34 U/L Alanine Aminotransferase (ALT/SGPT) 17 0-55 U/L Alkaline Phosphatase 120 40-136 U/L Total Protein 7.1 6.4-8.2 GM/DL Albumin 3.4 3.2-4.5 GM/DL My Orders Orders - EYAD KING MD Cbc With Automated Diff (03/01/22 12:45) Comprehensive Metabolic Panel (03/01/22 12:45) Magnesium (03/01/22 12:45) Chest 1 View, Ap/Pa Only (03/01/22 12:45) Vital Signs/I&O 03/01/22 12:37 Temp 37.0 Pulse 105 Resp 16 B/P (MAP) 133/90 (104) Pulse Ox 88 O2 Delivery Room Air Capillary Refill : Less Than 3 Seconds Blood Pressure Mean: 104 Progress Note : Progress Note 61-year-old female with above history coming in due to altered mental status. ABCs were intact and vitals were stable on presentation. Patient is alert and oriented and normal neuro exam on arrival here. Patient sodium was low at 123, patient states she has been chronically low before and drinks to 2 L of pop a day. I discussed with her this is too much and this is why her sodium is likely low. I offered admission, patient is adamant that she would not be admitted at this time. She understands the risk and benefits and is fully alert and oriented. Daughter is with her at this time and willing to watch her. I told him if things get worse she should come back to the ER Later on, discussed the case with the patient's daughter, and it sounds like she was sleeping in the bathroom with a gas heater, and less responsive than normal. She wanted her evaluated at that time. It is possible the patient had some type of carbon monoxide poisoning that was mild, but given that she is completely normal now, normal oxygen saturation and mental status, it is unlikely this was clinically significant. Family has been notified, and they will turn off this heater and remove it. I reviewed the patient's medication list, and there are also multiple medications that could cause her to be sedated. I discussed with him to bring this list to their primary physician to discuss if they can start cutting some of these medications in half or stopping some. The patient is not motivated to do this at this time, but family believes it is necessary. Called and discussed the case with Dr. CLINE, the patient's PCP. And given that the patient does not qualify for rehab, we will also not be able to get her to a rehab facility. They can discuss with their PCP regarding home health or outpatient physical therapy which they are motivated to do. Diagnostic Imaging Diagonstic Imaging: Xray (chest) Comments [facility], [place] NAME: CASSIE RANDALL [facility] REC#: [id number] PT STATUS: REG ER : 1960 PHYSICIAN: EYAD KING MD ADMIT DATE: 03/01/22/ER Draft Date of Exam:03/01/22 CHEST 1 VIEW, AP/PA ONLY INDICATION: Altered mental status. TECHNIQUE/COMPARISON: A frontal chest was obtained at 12:54 PM and compared to 01/15/2022. FINDINGS: Compared to the prior study, the patient has been extubated and the NG tube removed. Infiltrates in the right lung have shown significant improvement but not entirely resolved. There are some chronic appearing increased interstitial markings. There is no pneumothorax or pleural fluid. IMPRESSION: Status post extubation compared to the prior study. Significant improvement in the right-sided infiltrates without complete resolution. No pneumothorax or pleural fluid. Dictated on workstation # [id number] Dict: 03/01/22 1338 Trans: 03/01/22 1340 [id number] Interpreted by: YANIRA MORIN MD Electronically signed by: Departure Impression Primary Impression: Altered mental status Qualified Codes: R41.0 - Disorientation, unspecified Additional Impression: Hyponatremia Disposition: HOME, SELF-CARE Condition: Improved Departure-Patient Inst. Decision time for Depature: 14:13 Referrals: ROBERT CLINE DO (PCP/Family) Primary Care Physician Patient Instructions: Altered Mental Status (DC), Hyponatremia Add. Discharge Instructions: It could be the medications you are on that are causing the confusion vs the gas heater. I would remove the gas heater and discuss with Dr. Cline about cutting down on some of the medications if able. Your low sodium absolutely could be the reason why you are confused as well. This is typically due to too much fluid. You need to slowly cut back on the fluid so that your sodium comes up. If you change your mind and want to be admitted, you can come back to the hospital at any time for reevaluation. She can also set up home health and physical therapy. Work/School Note: Family Work Note Patient Received Medical Care In the Emergency Department On: Mar 01, 2022 Patient Will Be Able to Return to Work/School On: Mar 02, 2022 Copy Copies To 1: ROBERT CLINE ZACHARY K MD Mar 01, 2022 12:50
[2022-03-01 13:16] LABS: BASOPHILS % (AUTO) 0 % (0-10); EOSINOPHILS % (AUTO) 0 % (0-10); HEMATOCRIT 24 % (35-52); HEMOGLOBIN 8.2 g/dL (11.5-16.0); LYMPHOCYTES # (AUTO) 1.3 10^3/uL (1.0-4.0); LYMPHOCYTES % (AUTO) 11 % (12-44); MEAN CORPUSCULAR HEMOGLOBIN 31 pg (25-34); MEAN CORPUSCULAR HGB CONC 34 g/dL (32-36); MEAN CORPUSCULAR VOLUME 90 fL (80-99); MEAN PLATELET VOLUME 8.3 fL (9.0-12.2); MONOCYTES # (AUTO) 0.8 10^3/uL (0.0-1.0); MONOCYTES % (AUTO) 7 % (0-12); NEUTROPHILS % (AUTO) 82 % (42-75); PLATELET COUNT 212 10^3/uL (130-400); WHITE BLOOD COUNT 12.2 10^3/uL (4.3-11.0)
--- NOTE | 2022-03-01 13:41 | Diagnostic Imaging Report ---
INDICATION: Altered mental status. TECHNIQUE/COMPARISON: A frontal chest was obtained at 12:54 PM and compared to 01/15/2022. FINDINGS: Compared to the prior study, the patient has been extubated and the NG tube removed. Infiltrates in the right lung have shown significant improvement but not entirely resolved. There are some chronic appearing increased interstitial markings. There is no pneumothorax or pleural fluid. IMPRESSION: Status post extubation compared to the prior study. Significant improvement in the right-sided infiltrates without complete resolution. No pneumothorax or pleural fluid. Dictated by: Dictated on workstation # [id number]
[2022-03-01 13:46] LABS: ALBUMIN 3.4 GM/DL (3.2-4.5); BILIRUBIN,TOTAL 0.5 MG/DL (0.1-1.0); CALCIUM 8.7 MG/DL (8.5-10.1); CREATININE SERUM 0.73 MG/DL (0.60-1.30); MAGNESIUM 1.6 MG/DL (1.6-2.4); POTASSIUM 4.1 MMOL/L (3.6-5.0); TOTAL PROTEIN 7.1 GM/DL (6.4-8.2)
[2022-03-01 14:30] VITALS: BP 127/84
== END 2022-03-01 14:30 | disposition home or self-care (01) ==
LOC: EDUNIT# 12:37 → ER 12:38
DX: R41.82 Altered mental status, unspecified (principal); E87.1 Hypo-osmolality and hyponatremia; Z87.891 Personal history of nicotine dependence
CPT/HCPCS: 36415; 71045; 80053; 83735; 85025; 99281